=== PATIENT | female | born 1965 | race Caucasian/White ===

== ENCOUNTER 2020-05-03 12:49 | Outpatient (CLI) | payer MEDICARE, MEDICAID, SELFPAY ==
[2020-05-03 13:04] LABS: Basophils Percent Auto 0.9 % (0.0-1.0); Eosinophils Absolute Auto 0.26 K/mm3 (0.02-0.50); Eosinophils Percent Auto 2.3 % (1.0-6.0); Hematocrit 54.3 % (35.0-49.0); Hemoglobin 17.8 g/dL (12.0-15.0); Immature Granulocyte Absolute 0.04 K/mm3 (0.00-0.00); Immature Granulocyte Percent A 0.4 % (0.0-0.0); Lymphocytes Absolute Auto 3.11 K/mm3 (1.10-4.50); Mean Corpuscular HGB Conc 32.8 g/dL (32.0-36.0); Mean Corpuscular Hemoglobin 30.5 pg (27.0-31.0); Mean Corpuscular Volume 93.1 fL (78.0-102.0); Mean Platelet Volume 9.7 fl (9.2-11.8); Monocytes Absolute Auto 0.53 K/mm3 (0.10-0.90); Monocytes Percent Auto 4.8 % (2.0-11.0); Neutrophils Absolute Auto 7.1 K/mm3 (1.7-7.2); Neutrophils Percent Auto 63.6 % (50.0-70.0); Platelet Count Result 324 K/mm3 (150-420); Red Blood Count 5.83 M/mm3 (4.20-5.40); Red Cell Distribution Width 13.9 % (11.6-14.4); White Blood Count 11.1 K/mm3 (4.8-10.8)
[2020-05-03 13:17] LABS: Hemoglobin A1C 7.5 % (<5.7)
[2020-05-03 13:49] LABS: Alanine Aminotransferase 18 U/L (14-59); Albumin Level 3.8 g/dL (3.4-5.0); Alkaline Phosphatase 94 U/L (46-116); Aspartate Amino Transferase 15 U/L (15-37); Bilirubin,Total 0.5 mg/dL (0.00-1.00); Blood Urea Nitrogen 12 mg/dL (7-18); Calcium 9.3 mg/dL (8.5-10.1); Carbon Dioxide 33 mmol/L (21-32); Chloride 102 mmol/L (98-108); Cholesterol 166 mg/dL (0-200); Estimated Glomerular Filt Rate > 60; Glucose 174 mg/dL (70-99); HDL Direct 43 mg/dL (40-60); LDL Cholesterol Calculated 97 mg/dL (<130); Osmolality Calculated 295 mOsm/kg (285-295); Sodium 141 mmol/L (136-145); Thyroid Stimulating Hormone 15.01 uIU/mL (0.36-3.74); Total Protein 7.2 g/dL (6.4-8.2); Triglycerides 130 mg/dL (0-150)
== END 2020-05-03 12:50 | disposition home or self-care (01) ==
PROVIDERS: PCP Nurse Practitioner Family; Visit Provider Nurse Practitioner Family
DX: E78.5 Hyperlipidemia, unspecified (principal); I10 Essential (primary) hypertension; E11.9 Type 2 diabetes mellitus without complications; E03.9 Hypothyroidism, unspecified
CPT/HCPCS: 36415; 80053; 80061; 82043; 83036; 84443; 85025

== ENCOUNTER 2020-06-26 10:33 | Emergency (ER) | payer MEDICARE, MEDICAID, SELFPAY ==
--- NOTE | ~2020-06-26 | XR_ITS ---
EXAMINATION: XR ribs LT 2V DATE: 06/26/2020 11:30 INDICATION: Left rib pain. TECHNIQUE: 3 views of the left ribs were obtained. COMPARISON: None. FINDINGS: There is no left-sided pneumonia, pleural effusion, or pneumothorax. The heart size is norm al. There is a fracture of the left eighth rib. IMPRESSION: 1. Acute fracture of left eighth rib. Reviewed, dictated and finalized at location B.
[2020-06-26] MEDS: KETOROLAC (*BKC) 60 MG/2 ML VIAL IM (11:13)
[2020-06-26 11:15] VITALS: BP 118/69; PULSE 92; RESP 24; TEMP 37; O2SAT 92
--- NOTE | 2020-06-26 11:40 | ED.FALL ---
HPI - Fall General Chief Complaint: Fall Stated Complaint: Fell twice hurt ribs Source: patient Mode of arrival: ambulatory Limitations: no limitations History of Present Illness HPI Narrative: this is a 54-year-old female who presents with some left-sided rib pain after a fall that occurred this past Friday, currently has pain elicited with deep inspiration and with palpation, there is some mild bruising and point tenderness. Currently there is no chest pain no back pain no nausea vomiting no abdominal pain. Patient has a history of COPD is currently not short of breath no cough no fever. Patient has tried [id number] aspirin and Aleve with minimal relief. complaint: fall Onset (ago): day(s) Fall from: standing Fall witnessed: no Place fall occurred: home Loss of consciousness: none Prolonged down time: no Symptoms prior to fall: none Context: tripped/slipped Location of injury: other ( Left chest area) Related Data Home Medications Medication Instructions Recorded Confirmed allopurinol 100 mg tablet 100 mg PO DAILY 03/20/20 06/26/20 ergocalciferol (vitamin D2) 1,250 1,250 mcg PO WEEKLY 03/20/20 06/26/20 mcg (50,000 unit) capsule insulin glargine 100 unit/mL (3 75 unit SUB-Q DAILY ml 03/20/20 06/26/20 mL) subcutaneous pen liraglutide 0.6 mg/0.1 mL (18 mg/3 0.6 mg SUB-Q DAILY 03/20/20 06/26/20 mL) subcutaneous pen injector meloxicam 15 mg tablet 15 mg PO DAILY 03/20/20 06/26/20 metformin 1,000 mg tablet 1,000 mg PO BID 03/20/20 06/26/20 potassium chloride 10 mEq 10 meq PO DAILY 03/20/20 06/26/20 capsule,extended release insulin aspart U-100 100 unit/mL 5 unit SUB-Q TID 05/17/20 06/26/20 (3 mL) subcutaneous pen Allergies Allergy/AdvReac Type Severity Reaction Status Date / Time No Known Allergies Allergy Verified 05/26/20 09:21 Review of Systems Review of Systems: All systems reviewed & are unremarkable except as noted in HPI and below PMFSH Past Medical History Medical History BMI 33.0-33.9,adult COPD (chronic obstructive pulmonary disease) Depression HTN (hypertension) Hyperlipidemia Hypothyroidism Low back pain Nicotine dependence, cigarettes, uncomplicated Type 2 diabetes mellitus Surgical History Surgical History Hx of thyroidectomy 2002 Hx of tonsillectomy Age 16 Family History Family History Father Diabetes mellitus Heart disease Social History Social History Smoking packs per day: 0.5 Smoking cigarettes per day: 10.0 Years smoked: 40 Smoking pack-years: 20.00 Smoking status: Current every day smoker Alcohol intake: current Substance use: never Substance use type: does not use Exam Const: General: no acute distress and alert Orientation/consciousness: patient oriented x3 HENMT: Head: normal to inspection Eyes: Conjunctivae: conjunctivae normal EOM: EOMs intact bilaterally Neck: Neck: normal visual inspection, no lymphadenopathy and no meningeal signs Chest: Chest palpation & inspection: tenderness Other: Left rib area Cardio: Rate: regular rate Rhythm: regular rhythm GI: Auscultation: normal bowel sounds : General: Yes no CVA tenderness Back/Spine/Pelvis: Back: no CVA tenderness Skin: General skin exam: normal color Rashes: no rashes Extrem: General: normal to inspection Psych: Mental Status: mental status grossly normal Affect: normal affect Course Course Emergency Course: patient received IM Toradol with her moderate relief for pain, advised patient to take deep inspirations and follow-up with primary care physician and take medicine that was prescribed as needed for pain. Vital Signs Vital signs: Vital Signs Temperature 37.0 C 06/26/20 11:15 Pulse Rate 92 06/26/20 11:15 Resp
[2020-06-26 11:54] VITALS: BP 119/68; PULSE 67; RESP 22; O2SAT 94
== END 2020-06-26 11:54 | disposition home or self-care (01) ==
PROVIDERS: Emergency Provider Emergency Medicine; PCP Nurse Practitioner Family
DX: S22.32XA Fracture of one rib, left side, initial encounter for closed fracture (principal); W19.XXXA Unspecified fall, initial encounter; J44.9 Chronic obstructive pulmonary disease, unspecified; I10 Essential (primary) hypertension; E78.5 Hyperlipidemia, unspecified; E03.9 Hypothyroidism, unspecified; F17.200 Nicotine dependence, unspecified, uncomplicated
CPT/HCPCS: 71100; 96372; 99282; 99283; J1885

== ENCOUNTER 2020-08-12 10:58 | Outpatient (CLI) | payer MEDICARE, MEDICAID, SELFPAY ==
--- NOTE | ~2020-08-12 | MR_ITS ---
EXAMINATION: MR lumbar spine wo con EXAM DATE: 08/12/2020 11:47 INDICATION: Low back pain. TECHNIQUE: Multi-sequential, multiplanar MR images of the lumbar spine were obtained without contrast . Sagittal T1, T2, T2 fat saturation images. Axial T2 weighted images. There is no prior study for comparison. FINDINGS: Large left renal lesion, imaged portion consistent with simple cyst measuring 9 cm. There i s 3 mm anterolisthesis L4 on L5 without spondylolysis, mild disc disease at this level. Mild to moder ate disc disease at L3-4 and moderate at L5-S1 with 3 mm retrolisthesis. The conus medullaris termina pamella at the T12-L1 level and has normal signal intensity and morphology. There are no suspicious griselda ow signal abnormalities. Paraspinal soft tissue is unremarkable. Level by level evaluation: T12-L1: Disc does not extend beyond the endplate margin. Facet arthropathy: Mild. Neural foraminal stenosis: No stenosis. Central canal stenosis: No stenosis. L1-L2: Disc does not extend beyond the endplate margin. Facet arthropathy: Mild. Neural foraminal stenosis: No stenosis. Central canal stenosis: No stenosis. L2-L3: Disc does not extend beyond the endplate margin. Facet arthropathy: Mild to moderate. Neural foraminal stenosis: No stenosis. Central canal stenosis: No stenosis. L3-L4: There is a mild to moderate diffuse disc bulge. Facet arthropathy: Moderate . Ligamentum flavum enlargement. Neural foraminal stenosis: Moderate right, mild left. Central canal stenosis: Moderate. L4-L5: There is a mild to moderate diffuse disc bulge. Facet arthropathy: Severe . Ligamentum flavum enlargement. Neural foraminal stenosis: Mild to moderate bilateral. Central canal stenosis: Moderate. L5-S1: There is a mild to moderate diffuse disc bulge. Facet arthropathy: Mild to moderate. Neural foraminal stenosis: Moderate left, mild right. Central canal stenosis: Mild. IMPRESSION: 1. Moderate central canal stenosis L3-4 and L4-5. 2. Grade 1 anterolisthesis L4 on L5 and grade 1 retrolisthesis L5 on S1. Reviewed, dictated and finalized at location A.
== END 2020-08-12 10:59 | disposition home or self-care (01) ==
LOC: CHSIMG 10:59
PROVIDERS: PCP Nurse Practitioner Family; Visit Provider Nurse Practitioner Adult Health
DX: M54.17 Radiculopathy, lumbosacral region (principal)
CPT/HCPCS: 72148

== ENCOUNTER 2020-08-17 13:40 | Outpatient (CLI) | payer MEDICARE, SELFPAY ==
[2020-08-17 13:55] LABS: Basophils Absolute Auto 0.09 K/mm3 (0.00-0.10); Basophils Percent Auto 0.7 % (0.0-1.0); Eosinophils Absolute Auto 0.27 K/mm3 (0.02-0.50); Hematocrit 50.4 % (35.0-49.0); Hemoglobin 16.7 g/dL (12.0-15.0); Immature Granulocyte Absolute 0.05 K/mm3 (0.00-0.00); Immature Granulocyte Percent A 0.4 % (0.0-0.0); Mean Corpuscular HGB Conc 33.1 g/dL (32.0-36.0); Mean Corpuscular Hemoglobin 31.3 pg (27.0-31.0); Mean Corpuscular Volume 94.6 fL (78.0-102.0); Mean Platelet Volume 9.7 fl (9.2-11.8); Monocytes Percent Auto 5.3 % (2.0-11.0); Neutrophils Absolute Auto 7.4 K/mm3 (1.7-7.2); Neutrophils Percent Auto 55.6 % (50.0-70.0); Platelet Count Result 306 K/mm3 (150-420); Red Blood Count 5.33 M/mm3 (4.20-5.40); Red Cell Distribution Width 13.8 % (11.6-14.4); White Blood Count 13.3 K/mm3 (4.8-10.8)
[2020-08-17 14:08] LABS: Hemoglobin A1C 8.2 % (<5.7)
[2020-08-17 14:39] LABS: Alanine Aminotransferase 27 U/L (14-59); Albumin Level 4.4 g/dL (3.4-5.0); Alkaline Phosphatase 78 U/L (46-116); Anion Gap 10 mmol/L (8-16); Aspartate Amino Transferase 22 U/L (15-37); Bilirubin,Total 0.5 mg/dL (0.00-1.00); Blood Urea Nitrogen 20 mg/dL (7-18); Calcium 9.7 mg/dL (8.5-10.1); Carbon Dioxide 29 mmol/L (21-32); Chloride 101 mmol/L (98-108); Estimated Glomerular Filt Rate > 60; Free T4 Free Thyroxine 0.46 ng/dL (0.76-1.46); Glucose 73 mg/dL (70-99); Osmolality Calculated 291 mOsm/kg (285-295); Potassium 4.3 mmol/L (3.5-5.1); Sodium 140 mmol/L (136-145); Thyroid Stimulating Hormone 26.78 uIU/mL (0.36-3.74); Total Protein 8.3 g/dL (6.4-8.2)
[2020-08-20 06:03] LABS: T4 Thyroxine 3.3 mcg/dL (5.1-11.9)
[2020-08-21 07:33] LABS: Total Triiodothyronine (T3) 32.8 ng/dL (76-181)
[2020-08-22 09:56] LABS: T3 Reverse <5 ng/dL (8-25)
== END 2020-08-17 13:41 | disposition home or self-care (01) ==
LOC: CHSLAB 13:45
PROVIDERS: PCP Nurse Practitioner Family; Visit Provider Nurse Practitioner Family
DX: E11.9 Type 2 diabetes mellitus without complications (principal); I10 Essential (primary) hypertension; E03.9 Hypothyroidism, unspecified; R79.89 Other specified abnormal findings of blood chemistry
CPT/HCPCS: 36415; 80053; 83036; 84436; 84439; 84443; 84480; 84482; 85025

== ENCOUNTER 2020-08-18 15:57 | Outpatient (CLI) | payer MEDICARE, SELFPAY ==
[2020-08-18 16:18] LABS: Creatinine Urine 156.57 mg/dL (40-278); MALB Creatinine Ratio 8.3 mg/g (0-30); Microalbumin Urine Random < 13.0 mg/L
== END 2020-08-18 15:58 | disposition home or self-care (01) ==
LOC: CHSLAB 16:02
PROVIDERS: PCP Nurse Practitioner Family; Visit Provider Nurse Practitioner Family
DX: E11.9 Type 2 diabetes mellitus without complications (principal)
CPT/HCPCS: 82043

== ENCOUNTER 2020-08-21 15:39 | Outpatient (CLI) | payer MEDICARE, SELFPAY ==
[2020-08-22 13:49] LABS: SARS-CoV-2 RNA PCR Negative
== END 2020-08-21 15:40 | disposition home or self-care (01) ==
LOC: CHSLAB 15:41
PROVIDERS: PCP Nurse Practitioner Family; Visit Provider Nurse Practitioner Family
DX: Z20.828 Contact with and (suspected) exposure to other viral communicable diseases (principal)
CPT/HCPCS: 87635; C9803; U0003

== ENCOUNTER 2020-09-04 14:57 | Outpatient (CLI) | payer MEDICARE, SELFPAY ==
[2020-09-04 22:56] LABS: SARS-CoV-2 RNA PCR Positive
== END 2020-09-04 14:58 | disposition home or self-care (01) ==
PROVIDERS: PCP Nurse Practitioner Family
DX: U07.1 COVID-19 (principal)
CPT/HCPCS: 87635; C9803; U0003

== ENCOUNTER 2020-09-27 12:40 | Outpatient (CLI) | payer MEDICARE, MEDICAID, SELFPAY ==
--- NOTE | ~2020-09-27 | US_ITS ---
EXAMINATION: US venous doppler LE RT EXAM DATE: 09/27/2020 13:05 INDICATION: M79.604 - Pain in right leg TECHNIQUE: Multiple grayscale, color flow and Doppler images of the right lower extremity deep venous system were obtained and reviewed. There is no prior study for comparison. FINDINGS: The right common femoral, femoral and profunda veins demonstrate normal color flow, respira tory variation, augmentation and compressibility. Compressibility, color flow confirmed within the r ight popliteal, posterior tibial, peroneal, and greater saphenous veins. IMPRESSION: 1. No right lower extremity deep venous thrombosis. Reviewed, dictated and finalized at location A. GED CARE SPECIALIST
== END 2020-09-27 12:41 | disposition home or self-care (01) ==
LOC: CHSIMG 12:42
PROVIDERS: PCP Nurse Practitioner Family; Visit Provider Family Medicine
DX: M79.604 Pain in right leg (principal)
CPT/HCPCS: 93971

== ENCOUNTER 2021-02-26 21:10 | Emergency (ER) | payer MEDICARE, MEDICAID, SELFPAY ==
--- NOTE | ~2021-02-26 | CT_ITS ---
EXAMINATION: CT abdomen pelvis w con EXAM DATE: 02/27/2021 00:03 INDICATION: Nausea and vomiting. TECHNIQUE: Spiral CT of the abdomen and pelvis was performed following intravenous injection of 100 m L Omnipaque 350. Axial, coronal and sagittal images of the abdomen and pelvis were reviewed. Please note that the contrast infiltrated during the examination. The dose-length product (DLP) for this exa mination was 1541.93 mGy-cm. The exposure was tailored according to patient size (auto mA exposure c ontrol), and iterative reconstruction (ASIR) was used as additional dose reduction technique. There is no prior study for comparison. FINDINGS: There is a 2.8 cm right adrenal gland adenoma. Liver, spleen, pancreas, left adrenal gland are unremarkable. Mild hepatic steatosis. The spleen, adrenal glands and pancreas are unremarkable. There are cholecystectomy clips. There is no nephrolithiasis or hydronephrosis. There is an 9 cm lef t renal cyst. There is a 1.2 cm exophytic lesion which could be a hemorrhagic cyst but solid neoplasm not excludable; consider follow-up ultrasound. The uterus is unremarkable. The bladder is unremar kable. There is no retroperitoneal or pelvic lymphadenopathy. There is mild scattered arterioscler otic disease. There is a 5 cm umbilical fat-containing hernia. The appendix is normal. There is a 2 cm duodenal diverticulum. There is expected amount of colonic stool. No free intraperitoneal gas. Small pericardial effusion. Right basilar subsegmental atele ctasis. There are no osteoblastic or osteolytic lesions identified. There is advanced lower lumbar f acet arthropathy. IMPRESSION: 1. No acute intra-abdominal findings. 2. Small right renal indeterminate lesion, hemorrhagic cyst or possibly solid neoplasm; consider fol low-up ultrasound. 3. Other incidental findings as above. Reviewed, dictated and finalized at location A. IMPRESSION: 1. No acute intra-abdominal findings. 2. Small right renal indeterminate lesion, hemorrhagic cyst or possibly solid neoplasm; consider follow-up ultrasound. 3. Other incidental findings as above.
--- NOTE | ~2021-02-26 | XR_ITS ---
XR abdomen/kub 1V DATE: 02/26/2021 23:06 INDICATION: Nausea, emesis TECHNIQUE: Portable AP views of the abdomen COMPARISON: 06/26/2020 left ribs FINDINGS: This is a limited study due to portable technique and considerable patient rotation. There is a prominent amount of fecal material within the colon. No apparent bowel obstruction is dete cted. Surgical clip overlying right upper quadrant, likely due to cholecystectomy. An approximately 5 mm rounded calcification overlies the right lower quadrant of the abdomen; a calci fied appendicolith (and by extension appendicitis) is not excluded. The lung bases appear clear. No pleural effusions are noted. IMPRESSION: Cannot exclude calcified appendicolith, right lower quadrant Status post cholecystectomy Prominent amount fecal material in the colon; no apparent bowel obstruction Reviewed, dictated and finalized at Location A. Reviewed, dictated and finalized at location A.
[2021-02-26 21:23] VITALS: BP 178/88; PULSE 90; RESP 22; TEMP 37; O2SAT 95
--- NOTE | 2021-02-26 21:25 | ED.NAVMDI ---
HPI - Nausea/Vomiting/Diarrhea General Chief complaint: Nausea/Vomiting/Diarrhea Stated complaint: amb Time Seen by Provider: 02/26/21 21:26 Source: patient and EMS Mode of arrival: EMS History of Present Illness HPI Narrative: Patient is brought in by EMS. She gives no history. She refuses to cooperate with this physician, but has reportedly thrown up at least a few times at home. She denies any abdominal pain. She got mad at the medics and reportedly threw vomit on them. Her behavior here, since her arrival has not been helpful. Further history cannot be obtained as she will not cooperate. MD elicited complaint: nausea and vomiting Onset (ago): hour(s) Location of pain: none Related Data Home Medications Medication Instructions Recorded Confirmed allopurinol 100 mg tablet 100 mg PO DAILY 03/20/20 02/26/21 ergocalciferol (vitamin D2) 1,250 1,250 mcg PO WEEKLY 03/20/20 02/26/21 mcg (50,000 unit) capsule meloxicam 15 mg tablet 15 mg PO DAILY 03/20/20 02/26/21 potassium chloride 10 mEq 10 meq PO DAILY 03/20/20 02/26/21 capsule,extended release insulin aspart U-100 100 unit/mL 5 unit SUB-Q TID 05/17/20 02/26/21 (3 mL) subcutaneous pen Allergies Allergy/AdvReac Type Severity Reaction Status Date / Time No Known Allergies Allergy Verified 02/05/21 08:01 Review of Systems Review of Systems: ROS unobtainable: Yes unobtainable due to medical condition PMFSH Past Medical History Medical History (Updated 02/27/21 @ 01:10 by Cem Garzon MD) BMI 33.0-33.9,adult COPD (chronic obstructive pulmonary disease) Depression HTN (hypertension) Hyperlipidemia Hypothyroidism Low back pain Nicotine dependence, cigarettes, uncomplicated Type 2 diabetes mellitus Surgical History Surgical History Hx of thyroidectomy 2002 Hx of tonsillectomy Age 16 Family History Family History Father Diabetes mellitus Heart disease Social History Social History Smoking packs per day: 0.5 Smoking cigarettes per day: 10.0 Years smoked: 40 Smoking pack-years: 20.00 Smoking status: Current every day smoker Alcohol intake: current Substance use: never Substance use type: does not use Gender identity (if verbalized by the patient): Female Exam Const: General: no acute distress Orientation/consciousness: patient oriented x3 HENMT: Head: normal to inspection General nose exam: Normal external nose present Face and sinus: normal facial exam Mouth: Yes Normal oral and palatal mucosa present Eyes: Conjunctivae: conjunctivae normal Neck: Neck: normal visual inspection Chest: Chest palpation & inspection: normal inspection of the chest Resp: Effort & Inspection: normal respiratory effort Auscultation: clear to auscultation bilaterally Cardio: Rate: regular rate Rhythm: regular rhythm GI: GI Palp: Yes Soft to palpation (nontender) Auscultation: normal bowel sounds Skin: General skin exam: normal color Neuro: General: patient oriented x3 and moves all extremities Extrem: General: normal to inspection Psych: Appearance: grossly normal Mental Status: mental status grossly normal Thought content: Yes Normal thought content present Course Course Emergency Course: Labs, and a cat scan of the abdomen and pelvis were done and reviewed. After she was given Zofran IV, she improved significantly. She continued to be combative with staff, even after she appeared to feel better. She was then given Ativan 2mg IV, which seemed to fully resolve the nausea, but also put her to sleep. After she woke, she seemed to be much improved, with no further nausea, and acceptable behavior. Vital Signs Vital signs: Vital Signs Temperature 37.0 C 02/26/21 21:23 Pulse Rate 90 02/26/21 21:23 Respiratory Rate 22 H 02/26/21 21:23 Blood Pressure 178/88 H
[2021-02-26] MEDS: ONDANSETRON INJ 4 MG/2 ML VIAL IV PUSH (21:34)
[2021-02-26] MEDS: LORazepam INJ (*CRX) 2 MG/ML VIAL IV PUSH (21:42)
--- NOTE | 2021-02-26 21:42 | PC.NURSE ---
patient combative trying to pinch staff, cussing staff, spitting at staff. Ativan ordered
[2021-02-26 22:21] VITALS: BP 150/88; PULSE 88; RESP 18
[2021-02-26 22:59] LABS: Basophils Absolute Auto 0.05 K/mm3 (0.00-0.10); Basophils Percent Auto 0.5 % (0.0-1.0); Eosinophils Absolute Auto 0.07 K/mm3 (0.02-0.50); Eosinophils Percent Auto 0.7 % (1.0-6.0); Hematocrit 46.3 % (35.0-49.0); Immature Granulocyte Absolute 0.07 K/mm3 (0.00-0.00); Immature Granulocyte Percent A 0.7 % (0.0-0.0); Lymphocytes Absolute Auto 1.46 K/mm3 (1.10-4.50); Lymphocytes Percent Auto 14.3 % (18.0-42.0); Mean Corpuscular HGB Conc 32.4 g/dL (32.0-36.0); Mean Corpuscular Hemoglobin 30.4 pg (27.0-31.0); Mean Corpuscular Volume 93.9 fL (78.0-102.0); Mean Platelet Volume 10.3 fl (9.2-11.8); Monocytes Percent Auto 2.9 % (2.0-11.0); Neutrophils Absolute Auto 8.2 K/mm3 (1.7-7.2); Neutrophils Percent Auto 80.9 % (50.0-70.0); Platelet Count Result 287 K/mm3 (150-420); Red Blood Count 4.93 M/mm3 (4.20-5.40); White Blood Count 10.2 K/mm3 (4.8-10.8)
[2021-02-26 23:03] VITALS: BP 120/80; PULSE 88; RESP 18; O2SAT 94
[2021-02-26 23:14] LABS: Alanine Aminotransferase 22 U/L (14-59); Albumin Level 4.2 g/dL (3.4-5.0); Alkaline Phosphatase 77 U/L (46-116); Anion Gap 9 mmol/L (8-16); Aspartate Amino Transferase 16 U/L (15-37); Bilirubin,Total 0.4 mg/dL (0.00-1.00); Blood Urea Nitrogen 14 mg/dL (7-18); Calcium 9.4 mg/dL (8.5-10.1); Carbon Dioxide 29 mmol/L (21-32); Chloride 101 mmol/L (98-108); Estimated CRCL calculation 70 ml/min; Estimated Glomerular Filt Rate > 60; Glucose 351 mg/dL (70-99); Lipase 71 U/L (73-393); Osmolality Calculated 302 mOsm/kg (285-295); Potassium 3.2 mmol/L (3.5-5.1); Sodium 139 mmol/L (136-145); Total Protein 8.1 g/dL (6.4-8.2)
[2021-02-26 23:20] LABS: Lactic Acid Reflex 1.6 mmol/L (0.4-2.0)
--- NOTE | 2021-02-26 23:32 | PC.NURSE ---
son called up dated on condition, asked to call back she is stable
--- NOTE | 2021-02-27 00:29 | PC.NURSE ---
2330 pt sleeping,0001 pt requested bedpan. 0015 pt sleeping,
[2021-02-27 00:46] LABS: Add Urine Microscopic? YES; Appearance Urine Clear (Clear); Bilirubin Urine Negative (Negative); Blood Urine Negative (Negative); Color Urine Yellow (Yellow); Glucose Urine UA 3+ (Negative); Ketones Urine 1+ (Negative); Leukocyte Esterase Ur Negative (Negative); Nitrate Urine Negative (Negative); Protein Urine Negative (Negative); Specific Grav Ur 1.025 (1.010-1.020); Urobilinogen Urine 0.2 mg/dL (0.2-1.0)
[2021-02-27 00:53] LABS: Bacteria Urine Trace /hpf; RBC Urine 0-2 /hpf (0-2); Squamous Epithelial Cell Urine None seen /hpf (Few); WBC Urine 0-3 /hpf (0-3)
[2021-02-27 00:55] VITALS: BP 118/75; PULSE 78; RESP 20; TEMP 36.7; O2SAT 94
[2021-02-27 01:17] LABS: Amphetamine Screen Urine Positive (Negative); Barbiturate Screen Urine Negative (Negative); Benzodiazepines Screen Urine Negative (Negative); Cannabinoid Screen Urine Negative (Negative); Cocaine Screen Urine Negative (Negative); Methadone Screen Urine Negative (Negative); Opiate Screen Urine Negative (Negative); Phencyclidine Screen Urine Negative (Negative)
--- NOTE | 2021-02-27 01:20 | PC.NURSE ---
pt sleeping, left undisturbed.
[2021-02-27 02:12] VITALS: BP 150/94; PULSE 84; RESP 20; TEMP 36.4; O2SAT 94
[2021-02-27] MEDS: POTASSIUM BICARBONATE 25 MEQ TABEF 50 MEQ PO (02:15)
--- NOTE | 2021-02-27 02:48 | PC.NURSE ---
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 pt sleeping. left undisturbed.
--- NOTE | 2021-02-27 05:59 | PC.NURSE ---
0600 pt sleeping, repositions self in cot. no complaints or concerns voiced.
--- NOTE | 2021-02-27 06:49 | PC.NURSE ---
pt sleeping, reapplied warm towel to left hand/forearm. propped up on pillow. digits swollen. report to JEFF Koroma
--- NOTE | 2021-02-27 07:16 | PC.NURSE ---
PT CARE IS ASSUMED - PER PREVIOUS STAFF, PT IS DISCHARGED BUT SLEEPING WHILE WAITING FOR A RIDE
--- NOTE | 2021-02-27 08:20 | PC.NURSE ---
PT IS HELPED UP TO BATHROOM FOR TOILETING AND CHANGE OF CLOTHES. PT IS THEN TAKEN TO THE [address] WHERE SHE IS PICKED UP BY KENRICK JACKSON. NO VOMITING AT TIME OF DISCHARGE, PT IS REMINDED TO GET RX FILLED. PT UNHAPPY ABOUT SWELLING TO LEFT HAND AFTER IV INFILTRATE, PT OFFERED REASSURANCE.
== END 2021-02-27 08:25 | disposition home or self-care (01) ==
PROVIDERS: Emergency Provider Emergency Medicine; PCP Nurse Practitioner Family
DX: R11.2 Nausea with vomiting, unspecified (principal); Z79.899 Other long term (current) drug therapy; J44.9 Chronic obstructive pulmonary disease, unspecified; I10 Essential (primary) hypertension; E78.5 Hyperlipidemia, unspecified; E03.9 Hypothyroidism, unspecified; E11.9 Type 2 diabetes mellitus without complications; F17.200 Nicotine dependence, unspecified, uncomplicated
CPT/HCPCS: 36415; 74018; 74177; 80053; 80307; 81001; 83605; 83690; 85025; 96374; 96375; 99283; 99284; A9270; J2060; J2405; Q9967

== ENCOUNTER 2021-03-26 12:29 | Outpatient (CLI) | payer MEDICARE, MEDICAID, SELFPAY ==
--- NOTE | ~2021-03-26 | XR_ITS ---
EXAMINATION: XR_CERV2-3V_CR EXAM DATE: 03/26/2021 12:58 INDICATION: Posterior neck pain traveling up head for one week. No known recent injury. TECHNIQUE: Cervical spine frontal, lateral, lateral swimmers, and open-mouth odontoid projections. There is no prior study for comparison. FINDINGS: The vertebral bodies are aligned in the AP dimension. Vertebral body and disc heights are well-maintained. There is moderate to severe cervical facet arthropathy and probably overall mild to moderate uncovertebral joint arthropathy. There is mild cervical levoscoliosis. Lung apices are clear . Neck surgical clips which could be from thyroidectomy. IMPRESSION: 1. Advanced cervical facet arthropathy. 2. Mild levoscoliosis. Reviewed, dictated and finalized at location A.
== END 2021-03-26 12:30 | disposition home or self-care (01) ==
LOC: CHSIMG 12:32
PROVIDERS: PCP Nurse Practitioner Family; Visit Provider Nurse Practitioner Family
DX: M54.2 Cervicalgia (principal)
CPT/HCPCS: 72040

== ENCOUNTER 2021-04-10 14:11 | Outpatient (RCR) | payer MEDICARE, MEDICAID, SELFPAY ==
--- NOTE | 2021-04-10 15:09 | PTOPEVAL ---
Thank you for referring Emilee Duron to [facility].? The patient is scheduled to be seen for therapy? ____x/week for ___ weeks. Please review, sign, date and return this plan of care BILL. I agree with and certify that the following plan of care is medically necessary. Referring Physician Date Admitting Provider: Attending Provider: Ghazala Ace NP Referring Provider: *PT Outpatient Evaluation Start: 04/10/21 14:27 Freq: Status: Active Protocol: Document 04/10/21 14:25 [facility] (Rec: 04/10/21 14:58 [id number]) Therapy Assessment Status Assessment Status Assessment Status Evaluation Outpatient Past Medical History Past Medical History Other Source of Past Medical History see patient intake form Neurological History Hx Other Neurological Disorders Yes: cerebral palsy Respiratory History Hx Chronic Obstructive Pulmonary Disease Yes (COPD) Hx Emphysema Yes Gastrointestinal History Hx Cholecystectomy Yes Endocrine History Hx Diabetes Yes Hx Thyroidectomy Yes Evaluation Information Problem Diagnosis cervical spondylosis Onset 03/30/21 Additional Evaluation Detail ndi = 58% functional deficits Subjective Information patient reports she has had Query Text:As Reported By Patient/ pain in the neck for about 2 Family weeks that has been severe, but has had off and on pain in the neck for 5 years or more. she reports she is on disability. she reports a lot of falls in the past year or 2 . she reports her R side is affected by CP. she reports deficits in stability of the R LE. she reports per the neck, she has pain in the middle of the back that radiates up the spine. she reports she does get headaches. she reports she is not falling much lately. she reports she has increased pain in the neck with turning and looking behind her to the L side. she reports she has no radicualr symptoms in the UE' s. she reports her sleeping habits are affected due to pain. Prior Level of Function Comments Additional Prior Level of Function patient is on disability. she Comments
== END 2021-04-19 23:59 | disposition home or self-care (01) ==
LOC: CHSPT 14:11
PROVIDERS: PCP Nurse Practitioner Family; Visit Provider Nurse Practitioner Family
DX: M47.812 Spondylosis without myelopathy or radiculopathy, cervical region (principal)
CPT/HCPCS: 97014; 97110; 97140; 97161; G0283

== ENCOUNTER 2021-10-23 11:53 | Emergency (ER) | payer MEDICARE, MEDICAID, SELFPAY ==
--- NOTE | ~2021-10-23 | XR_ITS ---
EXAMINATION: XR chest 1V portable DATE: 10/23/2021 13:10 INDICATION: Shortness of breath and cough. TECHNIQUE: A single frontal view of the chest was obtained. COMPARISON: CT abdomen and pelvis 02/26/2021 FINDINGS: The chest demonstrates clear lungs without pneumonia, pleural effusion, or pneumothorax. Th e heart size is normal. IMPRESSION: 1. No acute cardiopulmonary disease. Reviewed, dictated and finalized at location A. ING MACHINE OPERATOR FRICTION
--- NOTE | ~2021-10-23 | CT_ITS ---
EXAMINATION: CTA chest PE protocol DATE: 10/23/2021 14:58 INDICATION: Shortness of breath. Cough. TECHNIQUE: Computed tomography angiography (CTA) of the chest was performed with 100 mL Omnipaque-350 intravenous contrast timed to evaluate the pulmonary arteries. Coronal maximum intensity projection 3D-reconstructions were created by the technologist. Automated exposure control and iterative reconst ruction technique were employed. The dose-length product was 752.24 mGy-cm. COMPARISON: CT abdomen and pelvis 02/26/2021 FINDINGS: The lungs demonstrate mild atelectasis. No pleural effusion. The heart size is normal. Ther e are coronary artery calcifications. There is a small pericardial effusion. There is no pulmonary em bolus. There is mild right hilar and mediastinal lymphadenopathy, likely reactive. Partially visualiz ed is a 3.1 cm mass in right adrenal gland, stable from 02/26/2021, consistent with an adenoma. There is diffuse hepatic steatosis. There is mild thoracic spondylosis. IMPRESSION: 1. No pulmonary embolus. 2. Small pericardial effusion. 3. Mild right hilar and mediastinal lymphadenopathy, likely reactive. Reviewed, dictated and finalized at location A. NSIC ACCOUNTANT
[2021-10-23 11:55] VITALS: BP 100/79; PULSE 75; RESP 18; TEMP 36.4; O2SAT 94
--- NOTE | 2021-10-23 12:12 | ED.SOB ---
HPI - SOB/Dyspnea General Chief Complaint: Shortness of Breath/Dyspnea Stated Complaint: ambulance Time Seen by Provider: 10/23/21 12:13 Source: patient Mode of arrival: ambulatory Limitations: no limitations History of Present Illness HPI Narrative: 55-year-old female, smoker with cerebral palsy, hypertension, diabetes mellitus, dyslipidemia, COPD/emphysema, depression, thyroidectomy with hypothyroidism, gout, chronic low back pain presents to the ER with -- worsening shortness of breath for past few days. -- cough with mucoid sputum. No chest pain. No fever. no recent illness/ upper respiratory tract symptoms. MD elicited complaint: shortness of breath and cough Pertinent past history: COPD Onset (ago): day(s) ( 3 days) Context: anxiety Exacerbating factors: nothing Relieving factors: nothing Known history of: COPD Associated symptoms: denies other symptoms Related Data Home Medications Medication Instructions Recorded Confirmed allopurinol 100 mg tablet 100 mg PO DAILY 03/20/20 02/26/21 ergocalciferol (vitamin D2) 1,250 1,250 mcg PO WEEKLY 03/20/20 02/26/21 mcg (50,000 unit) capsule potassium chloride 10 mEq 10 meq PO DAILY 03/20/20 02/26/21 capsule,extended release insulin aspart U-100 100 unit/mL 5 unit SUB-Q TID 05/17/20 02/26/21 (3 mL) subcutaneous pen levothyroxine 200 mcg tablet 200 mcg PO DAILY tablet 03/26/21 Allergies Allergy/AdvReac Type Severity Reaction Status Date / Time No Known Allergies Allergy Verified 10/23/21 12:06 Review of Systems Review of Systems: All systems reviewed & are unremarkable except as noted in HPI and below Constitutional: Constitutional: Reports as per HPI and Reports no additional constitutional complaints Eyes: Eyes: Reports as per HPI and Reports no additional eye complaints ENT: Reports system reviewed and no additional complaints, except as documented Cardiovascular: Cardiovascular: Reports as per HPI and Reports no additional cardiovascular complaints Respiratory: Respiratory: Reports as per HPI, Reports cough, Reports excessive phlegm production, Reports dyspnea and Reports dyspnea on exertion Gastrointestinal: Gastrointestinal: Reports as per HPI and Reports no additional gastrointestinal complaints Genitourinary: Genitourinary: Reports no additional female genitourinary complaints Musculoskeletal: Musculoskeletal: Reports no additional musculoskeletal complaints and Reports as per HPI Integumentary/Breasts: Skin/Breast: Reports system reviewed and no additional complaints, except as docu Neurologic: Reports system reviewed and no additional complaints, except as documented Psychiatric: Psychiatric: Reports no additional psychiatric complaints and Reports depression Endocrine: Endocrine: Reports no additional endocrine complaints Hematologic/Lymphatic: Hematologic/Lymphatic: Reports no additional hematologic/lymphatic complaints Allergic/Immunologic: Allergic/Immunologic: Reports no additional allergic/immunologic complaints [facility] Past Medical History Medical History (Updated 10/23/21 @ 15:24 by Anthony Cooper MD) BMI 33.0-33.9,adult COPD (chronic obstructive pulmonary disease) Depression HTN (hypertension) Hyperlipidemia Hypothyroidism Low back pain Nicotine dependence, cigarettes, uncomplicated Type 2 diabetes mellitus Surgical History Surgical History Hx of thyroidectomy 2002 Hx of tonsillectomy Age 16 Family History Family History Father Diabetes mellitus Heart disease Social History Social History Smoking packs per day: 0.5 Smoking cigarettes per day: 10.0 Years smoked: 40 Smoking pack-years: 20.00 Smoking status: Current every day smoker Alcohol intake: current Substance use: never Substance use type: does not use Gender teddy
--- NOTE | 2021-10-23 12:19 | ECG_ITS ---
Measurements Intervals [place] Rate: 74 P: 78 PA: 152 QRS: 62 QRSD: 94 T: 79 QT: 371 QTc: 413 Interpretive Statements SINUS RHYTHM WITH SINUS ARRHYTHMIA DELAYED PRECORDIAL R/S TRANSITION NONSPECIFIC ST & T-WAVE ABNORMALITY- HIGH LATERAL LEADS BASELINE ARTIFACT- I, II, III, AVR, AVL, AVF BORDERLINE ECG Electronically Signed On 10-23-2021 14:03:39 CRYSTAL ATTACHER by John Stiles D.O.
[2021-10-23 12:56] LABS: Basophils Absolute Auto 0.08 K/mm3 (0.00-0.10); Basophils Percent Auto 1.1 % (0.0-1.0); Eosinophils Absolute Auto 0.24 K/mm3 (0.02-0.50); Eosinophils Percent Auto 3.4 % (1.0-6.0); Hematocrit 49.2 % (35.0-49.0); Hemoglobin 15.9 g/dL (12.0-15.0); Immature Granulocyte Absolute 0.04 K/mm3 (0.00-0.00); Immature Granulocyte Percent A 0.6 % (0.0-0.0); Lymphocytes Absolute Auto 1.77 K/mm3 (1.10-4.50); Lymphocytes Percent Auto 24.9 % (18.0-42.0); Mean Corpuscular HGB Conc 32.3 g/dL (32.0-36.0); Mean Corpuscular Hemoglobin 30.1 pg (27.0-31.0); Mean Platelet Volume 9.7 fl (9.2-11.8); Monocytes Absolute Auto 0.53 K/mm3 (0.10-0.90); Monocytes Percent Auto 7.4 % (2.0-11.0); Neutrophils Absolute Auto 4.5 K/mm3 (1.7-7.2); Neutrophils Percent Auto 62.6 % (50.0-70.0); Platelet Count Result 280 K/mm3 (150-420); Red Blood Count 5.29 M/mm3 (4.20-5.40); Red Cell Distribution Width 13.5 % (11.6-14.4); White Blood Count 7.1 K/mm3 (4.8-10.8)
[2021-10-23 13:01] LABS: Base Excess ABG 6.4 mmol/L (0-2); HCO3 ABG 30.8 mmol/L (23-29); Oxygen Content ABG 20.7 %vol (16.0-22.0); Oxygen Saturation ABG 94.5 % (95-97); PCO2 ABG 42.8 mmHg (35-45); PO2 ABG 69.7 mmHg (80-90); pH ABG 7.48 (7.35-7.45)
[2021-10-23 13:02] LABS: Device ROOM AIR; Modified Allen's Test Pass; Site Drawn LEFT BRACHIAL
[2021-10-23] MEDS: methylPREDNISolone SOD SUCC 125 MG VIAL IV PUSH (13:06)
[2021-10-23] MEDS: ALBUTEROL SULFATE (*SP) INHALER 2 PUFF INHALATION (13:16)
[2021-10-23 13:17] VITALS: PULSE 78; RESP 22; O2SAT 91
[2021-10-23 13:18] LABS: Alanine Aminotransferase 20 U/L (14-59); Albumin Level 3.3 g/dL (3.4-5.0); Alkaline Phosphatase 78 U/L (46-116); Anion Gap 8 mmol/L (8-16); Aspartate Amino Transferase 14 U/L (15-37); Bilirubin,Total 0.4 mg/dL (0.00-1.00); Blood Urea Nitrogen 8 mg/dL (7-18); Calcium 8.9 mg/dL (8.5-10.1); Carbon Dioxide 35 mmol/L (21-32); Chloride 97 mmol/L (98-108); Estimated CRCL calculation 74 ml/min; Estimated Glomerular Filt Rate > 60; Glucose 225 mg/dL (70-99); NT Pro B Type Natriuretic Pept 139 pg/mL (0-125); Osmolality Calculated 295 mOsm/kg (285-295); Potassium 3.6 mmol/L (3.5-5.1); Sodium 140 mmol/L (136-145); Total Protein 7.2 g/dL (6.4-8.2)
[2021-10-23 13:19] VITALS: BP 127/78; PULSE 72; RESP 18; O2SAT 92
--- NOTE | 2021-10-23 13:22 | PC.NURSE ---
1315 ERP infromed of elevated D-dimer of 0.70
[2021-10-23 13:28] VITALS: PULSE 83; RESP 18; O2SAT 93
[2021-10-23 13:40] LABS: Lipase 94 U/L (73-393); Thyroid Stimulating Hormone 22.05 uIU/mL (0.36-3.74); Troponin I 6.7 ng/L (0.00-60.4)
[2021-10-23 13:53] LABS: SARS-CoV-2 RNA PCR Negative (Negative)
[2021-10-23] MEDS: LACTATED RINGERS 1,000 ML 500 ML IV CONT (14:12)
[2021-10-23] MEDS: AZITHROMYCIN 250 MG TABLET 500 MG PO (15:32)
[2021-10-23 15:41] VITALS: BP 129/81; PULSE 79; RESP 24; O2SAT 90
--- NOTE | 2021-10-23 15:43 | PC.NURSE ---
ERP verbal order for only 500mL of LR. RN stopped LR around 1543. Pt recieved 500mL total.
--- NOTE | 2021-10-23 15:53 | PC.NURSE ---
Pt recieving LR 500mL total per ERP verbal order. Pt recieved 500 mL and infusion stopped at 1553
== END 2021-10-23 15:58 | disposition home or self-care (01) ==
PROVIDERS: Emergency Provider Internal Medicine Critical Care Medicine; PCP Nurse Practitioner Family
DX: R06.02 Shortness of breath (principal); J44.9 Chronic obstructive pulmonary disease, unspecified; E89.0 Postprocedural hypothyroidism; Z20.822 Contact with and (suspected) exposure to COVID-19; I10 Essential (primary) hypertension; E78.5 Hyperlipidemia, unspecified; E11.9 Type 2 diabetes mellitus without complications; F17.200 Nicotine dependence, unspecified, uncomplicated
CPT/HCPCS: 36415; 36600; 71045; 71275; 80053; 82805; 83690; 83880; 84443; 84484; 85025; 85380; 93005; 94640; 96361; 96374; 99283; 99284; A9270; C9803; J2930; J7120; Q9967; U0003; U0005

== ENCOUNTER 2021-12-13 13:38 | Outpatient (CLI) | payer MEDICARE, MEDICAID, SELFPAY ==
--- NOTE | ~2021-12-13 | XR_ITS ---
EXAMINATION: XR heel LT min 2V DATE: 12/13/2021 14:20 INDICATION: Left heel wound. TECHNIQUE: 2 views of left calcaneus were obtained. COMPARISON: None. FINDINGS: Bone alignment is normal. No fracture. There is mild midfoot osteoarthritis. There are enth esophytes at the posterior and plantar aspects of calcaneal tuberosity. IMPRESSION: 1. No evidence of osteomyelitis. Reviewed, dictated and finalized at location A. TING MANAGER
--- NOTE | ~2021-12-13 | US_ITS ---
US arterial ankle brachial ind INDICATION: Leg pain. TECHNIQUE: Segmental pressures and plethysmographic and Doppler waveforms of the brachial and lower e xtremity arteries were obtained. COMPARISON: None. FINDINGS: Right and left brachial artery pressures of 163 mm Hg and 170 mm Hg, respectively, are concordant (no rmal difference <= 30 mmHg). The right ankle-brachial index (JENNIFER) is 0.78 (normal >= 0.9-1.0). The right great toe-brachial index (TBI) is 0.68 (normal >= 0.60). The left JENNIFER is 0.73. The left TBI is 0.61. IMPRESSION: 1. Diminished bilateral ankle-brachial indices, consistent with mild peripheral arterial disease. Reviewed, dictated and finalized at location B. IT DEPARTMENT MANAGER
== END 2021-12-13 13:39 | disposition home or self-care (01) ==
LOC: CHSIMG 13:41
PROVIDERS: PCP Nurse Practitioner Family; Visit Provider Nurse Practitioner Family
DX: I83.90 Asymptomatic varicose veins of unspecified lower extremity (principal); L97.429 Non-pressure chronic ulcer of left heel and midfoot with unspecified severity; S91.302A Unspecified open wound, left foot, initial encounter
CPT/HCPCS: 73650; 93922

== ENCOUNTER 2021-12-24 10:11 | Outpatient (RCR) | payer MEDICARE, MEDICAID, SELFPAY | END 2022-01-23 23:59 | disposition home or self-care (01) | LOC: CHSWOUND 10:11 | PROVIDERS: PCP Nurse Practitioner Family; Visit Provider Nurse Practitioner Family | DX: E11.621 Type 2 diabetes mellitus with foot ulcer (principal); L97.421 Non-pressure chronic ulcer of left heel and midfoot limited to breakdown of skin; E11.43 Type 2 diabetes mellitus with diabetic autonomic (poly)neuropathy; J44.9 Chronic obstructive pulmonary disease, unspecified; I10 Essential (primary) hypertension; E78.5 Hyperlipidemia, unspecified; E03.9 Hypothyroidism, unspecified; G80.4 Ataxic cerebral palsy; F32.A Depression, unspecified; F17.200 Nicotine dependence, unspecified, uncomplicated | CPT/HCPCS: 99214; G0463 ==

== ENCOUNTER 2022-05-30 15:48 | Emergency (ER) | payer MEDICARE, MEDICAID, SELFPAY ==
--- NOTE | 2022-05-30 15:57 | ED.GENADULT ---
HPI - General Adult General Chief complaint: Wound/Laceration Stated complaint: urinary issues, rt side sore Time Seen by Provider: 05/30/22 15:51 Source: patient History of Present Illness HPI narrative: This is a 56-year-old female with a history of cerebral palsy and COPD presenting to the ED with a chief complaint of a wound on her right hip. She has a dime-sized wound on her greater trochanter. She has had it for approximately 3 weeks. One of her friends at home has been applying Neosporin and doing dressing changes on it daily. The wound developed where she lays on that side. The patient is largely immobile due to her multiple comorbidities including COPD and cerebral palsy. Patient denies systemic signs of illness such as fever, chills, nausea, vomiting or diarrhea. The wound is getting smaller. There is no surrounding erythema or area of fluctuance. The patient also notes that she has been having pain on urination, increased urinary frequency and your increased urinary urgency. Related Data Allergies Allergy/AdvReac Type Severity Reaction Status Date / Time No Known Allergies Allergy Verified 05/30/22 16:14 Review of Systems Constitutional: Constitutional: Denies fever(s) Eyes: Eyes: Reports no additional eye complaints ENT: Reports system reviewed and no additional complaints, except as documented Cardiovascular: Cardiovascular: Denies chest pain Respiratory: Respiratory: Reports dyspnea Gastrointestinal: Gastrointestinal: Denies abdominal pain Genitourinary: Genitourinary: Reports nocturia, Reports dysuria and Reports urinary incontinence Musculoskeletal: Musculoskeletal: Reports myalgias Comments: Chronic pain Integumentary/Breasts: Skin/Breast: Denies rash Neurologic: Denies confusion Psychiatric: Psychiatric: Reports anxiety Endocrine: Endocrine: Denies excessive sweating Hematologic/Lymphatic: Hematologic/Lymphatic: Denies easy bleeding Allergic/Immunologic: Allergic/Immunologic: Denies lip swelling PMFSH Past Medical History Medical History (Updated 05/30/22 @ 17:41 by Rakesh Thompson MD) BMI 33.0-33.9,adult COPD (chronic obstructive pulmonary disease) Depression HTN (hypertension) Hyperlipidemia Hypothyroidism Low back pain Nicotine dependence, cigarettes, uncomplicated Type 2 diabetes mellitus Surgical History Surgical History Hx of thyroidectomy 2002 Hx of tonsillectomy Age 16 Family History Family History Father Diabetes mellitus Heart disease Social History Social History Smoking packs per day: 0.5 Smoking cigarettes per day: 10.0 Years smoked: 40 Smoking pack-years: 20.00 Smoking status: Current every day smoker Alcohol intake: current Substance use: never Substance use type: does not use Gender identity (if verbalized by the patient): Female Exam Narrative: the patient is laying in bed. She is tearful during our interview. She is sad because she is no longer mobile enough to go outside and has multiple health issues. Const: General: alert Nutritional Appearance: obese Orientation/consciousness: patient oriented x3 HENMT: Head: normal to inspection Ears: external ears normal General nose exam: Normal external nose present Face and sinus: normal facial exam Eyes: Pupils: Equal, round and reactive pupils present EOM: EOMs intact bilaterally Neck: Neck: normal visual inspection Chest: Chest palpation & inspection: normal inspection of the chest Resp: Effort & Inspection: normal respiratory effort Auscultation: wheezes expiratory wheezes Cardio: Rate: regular rate GI: Inspection: distended GI Palp: Yes Soft to palpation, No Tenderness to palpation present (GI) and No Guarding due to palpation present (GI) : Other: Unable to palpate suprapubic
[2022-05-30 16:11] VITALS: BP 145/106; PULSE 85; RESP 20; TEMP 36.9; O2SAT 97
[2022-05-30] MEDS: IPRATROPIUM 0.5 MG/ALBUTEROL SULFATE 2.5 MG AMPUL.NEB 3 ML INHALATION (16:32)
[2022-05-30 16:33] VITALS: PULSE 86; RESP 18; O2SAT 96
[2022-05-30 16:35] LABS: Appearance Urine Clear (Clear); Bilirubin Urine Negative (Negative); Color Urine Light Yellow (Yellow); Glucose Urine UA 3+ (Negative); Ketones Urine Negative (Negative); Leukocyte Esterase Ur Trace LEU/UL (Negative); Nitrate Urine Negative (Negative); Protein Urine Negative (Negative); Specific Grav Ur 1.015 (1.010-1.020); Urobilinogen Urine 0.2 mg/dL (0.2-1.0); pH Urine 5.5 (5.0-8.0)
[2022-05-30 16:38] LABS: Add Urine Microscopic? YES; Bacteria Urine 1+ /hpf; Blood Urine Trace-Intact (Negative); RBC Urine 0-2 /hpf (0-2); Squamous Epithelial Cell Urine Few /hpf (Few)
[2022-05-30 16:43] VITALS: PULSE 69; RESP 20; O2SAT 96
[2022-05-30 16:49] LABS: Glucose Point of Care 435 mg/dl (65-105)
[2022-05-30 17:05] LABS: Hematocrit 48.4 % (35.0-49.0); Hemoglobin 15.9 g/dL (12.0-15.0); Mean Corpuscular HGB Conc 32.9 g/dL (32.0-36.0); Mean Corpuscular Hemoglobin 31.1 pg (27.0-31.0); Mean Corpuscular Volume 94.7 fL (78.0-102.0); Mean Platelet Volume 10.6 fl (9.2-11.8); Platelet Count Result 245 K/mm3 (150-420); Red Blood Count 5.11 M/mm3 (4.20-5.40); Red Cell Distribution Width 13.6 % (11.6-14.4); White Blood Count 12.7 K/mm3 (4.8-10.8)
[2022-05-30] MEDS: HYDROcodone/acetaminophen (*CRX) 5-325 MG TABLET 2 TAB PO (17:12)
[2022-05-30 17:28] LABS: Anion Gap 17 mmol/L (8-16); Blood Urea Nitrogen 13 mg/dL (7-18); Carbon Dioxide 21 mmol/L (21-32); Chloride 96 mmol/L (98-108); Estimated CRCL calculation 54 ml/min; Estimated Glomerular Filt Rate 50; Potassium 3.9 mmol/L (3.5-5.1); Sodium 134 mmol/L (136-145)
[2022-05-30 17:29] LABS: Glucose 569 mg/dL (70-99); Osmolality Calculated 304 mOsm/kg (285-295)
--- NOTE | 2022-05-30 17:29 | PC.NURSE ---
LAb reports glucose of 569, erp notified.
[2022-05-30 18:10] VITALS: BP 145/78; PULSE 81; RESP 20; TEMP 37.1; O2SAT 96
== END 2022-05-30 18:18 | disposition home or self-care (01) ==
PROVIDERS: Emergency Provider Emergency Medicine; PCP Nurse Practitioner Family
DX: L89.212 Pressure ulcer of right hip, stage 2 (principal); N39.0 Urinary tract infection, site not specified; E11.9 Type 2 diabetes mellitus without complications; J44.9 Chronic obstructive pulmonary disease, unspecified; I10 Essential (primary) hypertension; E78.5 Hyperlipidemia, unspecified; E03.9 Hypothyroidism, unspecified; M54.50 Low back pain, unspecified; G80.9 Cerebral palsy, unspecified; F32.A Depression, unspecified; F17.210 Nicotine dependence, cigarettes, uncomplicated
CPT/HCPCS: 36415; 80048; 81001; 82948; 85027; 87077; 87086; 87088; 94640; 99283; A9270

== ENCOUNTER 2022-06-02 18:47 | Emergency (ER) | payer MEDICARE, MEDICAID, SELFPAY ==
--- NOTE | ~2022-06-02 | XR_ITS ---
EXAM: XR foot RT 2V DATE: 06/02/2022 20:18 HISTORY: Pain and swelling of R 5th toe. IDDM. No ulcer. . COMPARISON: None available. FINDINGS: Exam limited by incomplete visualization of the fifth toe in the lateral view. Decreased mi neralization. No fracture or dislocation. No lytic or blastic lesion. Joint spaces are maintained. Ac hilles and plantar enthesopathy. Extensive ossification of the Achilles tendon. No erosion or periost eal change. Soft tissues within normal limits. IMPRESSION: Limited exam without definite evidence of osteomyelitis. Reviewed, dictated and finalized at location K.
[2022-06-02 19:34] VITALS: BP 129/81; PULSE 83; RESP 20; TEMP 36.6; O2SAT 95
[2022-06-02 20:05] LABS: Glucose Point of Care > 450 mg/dl (65-105)
[2022-06-02] MEDS: IBUPROFEN 400 MG TABLET 800 MG PO (20:15)
[2022-06-02] MEDS: ACETAMINOPHEN 500 MG TABLET 1000 MG PO (20:16)
[2022-06-02 20:29] LABS: Basophils Absolute Auto 0.09 K/mm3 (0.00-0.10); Basophils Percent Auto 0.9 % (0.0-1.0); Eosinophils Absolute Auto 0.18 K/mm3 (0.02-0.50); Eosinophils Percent Auto 1.8 % (1.0-6.0); Hematocrit 44.8 % (35.0-49.0); Hemoglobin 14.6 g/dL (12.0-15.0); Immature Granulocyte Absolute 0.05 K/mm3 (0.00-0.00); Immature Granulocyte Percent A 0.5 % (0.0-0.0); Lymphocytes Absolute Auto 2.97 K/mm3 (1.10-4.50); Lymphocytes Percent Auto 29.2 % (18.0-42.0); Mean Corpuscular HGB Conc 32.6 g/dL (32.0-36.0); Mean Corpuscular Hemoglobin 30.9 pg (27.0-31.0); Mean Corpuscular Volume 94.9 fL (78.0-102.0); Mean Platelet Volume 10.3 fl (9.2-11.8); Monocytes Absolute Auto 0.59 K/mm3 (0.10-0.90); Monocytes Percent Auto 5.8 % (2.0-11.0); Neutrophils Absolute Auto 6.3 K/mm3 (1.7-7.2); Neutrophils Percent Auto 61.8 % (50.0-70.0); Platelet Count Result 224 K/mm3 (150-420); Red Blood Count 4.72 M/mm3 (4.20-5.40); Red Cell Distribution Width 13.7 % (11.6-14.4); White Blood Count 10.2 K/mm3 (4.8-10.8)
[2022-06-02 20:36] LABS: Anion Gap 11 mmol/L (8-16); Blood Urea Nitrogen 20 mg/dL (7-18); Calcium 8.9 mg/dL (8.5-10.1); Carbon Dioxide 25 mmol/L (21-32); Chloride 100 mmol/L (98-108); Estimated CRCL calculation 67 ml/min; Estimated Glomerular Filt Rate 59; Osmolality Calculated 306 mOsm/kg (285-295); Sodium 136 mmol/L (136-145)
[2022-06-02 20:43] LABS: Glucose 491 mg/dL (70-99)
--- NOTE | 2022-06-02 20:49 | ED.GENADULT ---
HPI - General Adult General Chief complaint: Extremity Problem,Nontraumatic Stated complaint: right toe pain History of Present Illness HPI narrative: This is a 56-year-old female with multiple medical comorbidities presenting to the ER with a chief complaint of right toe pain. Patient has chronic pain in her feet due to diabetic neuropathy. Additionally she has peripheral artery disease. She says she is scheduled for a bypass to improve her circulation. The patient says that her right toe has been hurting. She denies trauma. The patient was seen here several days ago for multiple unrelated complaints Including a well-healing states she has decubitus ulcer on her right hip, UTI, and a mild COPD exacerbation. All of those issues have since been resolved. The patient states that she has been taking her medication as directed. She has not followed up with her primary care physician, or her vascular surgeon. Related Data Home Medications Medication Instructions Recorded Confirmed insulin degludec 100 unit/mL (3 70 unit subcut DAILY 06/02/22 06/02/22 mL) subcutaneous pen (Tresiba FlexTouch U-100 insulin) Allergies Allergy/AdvReac Type Severity Reaction Status Date / Time No Known Allergies Allergy Verified 05/30/22 16:14 Review of Systems Constitutional: Constitutional: Denies fever(s) Eyes: Eyes: Denies no additional eye complaints ENT: Denies dysphagia Cardiovascular: Cardiovascular: Denies chest pain Respiratory: Respiratory: Denies no additional respiratory complaints Gastrointestinal: Gastrointestinal: Denies no additional gastrointestinal complaints Genitourinary: Genitourinary: Denies abnormal vaginal bleeding Musculoskeletal: Musculoskeletal: Denies back pain Integumentary/Breasts: Skin/Breast: Reports breast pain and Denies rash Neurologic: Denies confusion Psychiatric: Psychiatric: Denies anxiety Endocrine: Endocrine: Denies excessive sweating Hematologic/Lymphatic: Hematologic/Lymphatic: Denies easy bleeding Allergic/Immunologic: Allergic/Immunologic: Denies lip swelling PMFSH Past Medical History Medical History BMI 33.0-33.9,adult COPD (chronic obstructive pulmonary disease) Depression HTN (hypertension) Hyperlipidemia Hypothyroidism Low back pain Nicotine dependence, cigarettes, uncomplicated Type 2 diabetes mellitus Surgical History Surgical History Hx of thyroidectomy 2002 Hx of tonsillectomy Age 16 Family History Family History Father Diabetes mellitus Heart disease Social History Social History Smoking packs per day: 0.5 Smoking cigarettes per day: 10.0 Years smoked: 40 Smoking pack-years: 20.00 Smoking status: Current every day smoker Alcohol intake: current Substance use: never Substance use type: does not use Gender identity (if verbalized by the patient): Female Exam Const: General: No healthy appearing Nutritional Appearance: well nourished Orientation/consciousness: patient oriented x3 HENMT: Head: normal to inspection Ears: external ears normal General nose exam: Normal external nose present Face and sinus: normal facial exam Mouth: Yes Normal oral and palatal mucosa present Eyes: Conjunctivae: conjunctivae normal Pupils: Equal, round and reactive pupils present Neck: Neck: normal visual inspection Chest: Chest palpation & inspection: normal inspection of the chest Resp: Effort & Inspection: normal respiratory effort Auscultation: no wheezes Cardio: Rate: regular rate Rhythm: regular rhythm GI: GI Palp: Yes Soft to palpation, No Tenderness to palpation present (GI) and No Guarding due to palpation present (GI) Back/Spine/Pelvis: Back: no CVA tenderness Skin: General skin exam: No kole
[2022-06-02 20:52] VITALS: BP 126/92; PULSE 84; RESP 18; TEMP 36.8; O2SAT 98
[2022-06-06 14:03] LABS: Hemoglobin A1C 11.8 % (<5.7)
== END 2022-06-02 21:04 | disposition home or self-care (01) ==
PROVIDERS: Emergency Provider Emergency Medicine; PCP Nurse Practitioner Family
DX: G62.9 Polyneuropathy, unspecified (principal); E11.9 Type 2 diabetes mellitus without complications; I73.9 Peripheral vascular disease, unspecified; J44.9 Chronic obstructive pulmonary disease, unspecified; I10 Essential (primary) hypertension; E78.5 Hyperlipidemia, unspecified; E03.9 Hypothyroidism, unspecified; F17.200 Nicotine dependence, unspecified, uncomplicated
CPT/HCPCS: 36415; 73620; 80048; 82948; 83036; 85025; 99283; A9270

== ENCOUNTER 2022-06-03 22:09 | Emergency (ER) | payer MEDICARE, MEDICAID, SELFPAY ==
--- NOTE | ~2022-06-03 | XR_ITS ---
EXAMINATION: XR toe 5th RT min 2V DATE: 06/03/2022 23:08 INDICATION: Right fifth toe pain TECHNIQUE: Dorsal plantar, lateral and 2 oblique views of the right fifth were obtained. COMPARISON: Right foot radiographs dated 06/02/2022 FINDINGS: Bone alignment is normal. No fracture. Fifth distal interphalangeal joint is fused which is likely de velopmental. Mild polyarticular osteoarthritis at the majority of the visualized joints in the right mid and forefoot. No erosions or periosteal reaction to suggest osteomyelitis. Soft tissues are unrem arkable. IMPRESSION: Mild polyarticular osteoarthritis at the right mid and forefoot. No acute osseous abnormality. Reviewed, dictated and finalized at location A. IMPRESSION: Mild polyarticular osteoarthritis at the right mid and forefoot. No acute osseo us abnormality.
[2022-06-03 22:12] VITALS: BP 148/90; PULSE 71; RESP 18; TEMP 36.4; O2SAT 96
[2022-06-03 22:26] LABS: Basophils Absolute Auto 0.1 K/mm3 (0.0-0.1); Basophils Percent Auto 1.3 % (0.2-1.2); Eosinophils Absolute Auto 0.2 K/mm3 (0-0.3); Hematocrit 47.3 % (37.0-47.0); Immature Granulocyte Absolute 0.04 K/mm3 (0.00-0.031); Immature Granulocyte Percent A 0.4 % (0-0.5); Lymphocytes Absolute Auto 3.09 K/mm3 (0.9-3.2); Lymphocytes Percent Auto 31.5 % (18.3-44.2); Mean Corpuscular HGB Conc 31.7 g/dl (32-36); Mean Corpuscular Hemoglobin 30.4 pg (26-34); Mean Corpuscular Volume 95.7 fl (80-100); Mean Platelet Volume 10.5 fl (7.4-10.4); Monocytes Absolute Auto 0.5 K/mm3 (0.1-0.6); Monocytes Percent Auto 5.3 % (2.6-8.5); Neutrophils Absolute Auto 5.8 K/mm3 (1.3-6.7); Neutrophils Percent Auto 59.5 % (45.5-73.1); Platelet Count Result 232 k/mm3 (150-375); Red Blood Count 4.94 M/mm3 (4.2-5.4); Red Cell Distribution Width 14.1 % (11.5-14.5); White Blood Count 9.8 K/mm3 (4.5-10.0)
[2022-06-03 22:36] LABS: Glucose Point of Care > 500 mg/dl (65-105)
[2022-06-03 23:00] LABS: Alanine Aminotransferase 21 U/L (6-35); Alkaline Phosphatase 116 U/L (38-126); Anion Gap 10 mmol/L (8-16); Aspartate Amino Transferase 26 U/L (14-36); Bilirubin,Total 0.3 mg/dL (0.2-1.3); Blood Urea Nitrogen 16 mg/dL (7-17); Calcium 8.6 mg/dL (8.4-10.2); Carbon Dioxide 28 mmol/L (22-30); Chloride 98 mmol/L (98-107); Estimated CRCL calculation 86 ml/min; Estimated Glomerular Filt Rate > 60; Glucose 518 mg/dL (65-110); Sodium 136 mmol/L (137-145)
[2022-06-03] MEDS: SODIUM CHLORIDE 0.9% IV 1,000 ML 999 ML IV CONT (23:28)
[2022-06-03] MEDS: INSULIN HUMAN REGULAR (*BKC) 100 UNITS/ML 10 UNITS IV PUSH (23:29)
--- NOTE | 2022-06-03 23:52 | ED.GENADULT ---
HPI - General Adult General Chief complaint: Recheck/Abnormal Lab/Rx Stated complaint: non compliant diabetes, wound to right foot Time Seen by Provider: 06/03/22 23:00 History of Present Illness HPI narrative: Patient is a 56-year-old female who presents the emergency department with chief complaint of poorly controlled diabetes and hyperglycemia. Patient reports that she has been minimally compliant with her insulin for her diabetes and reports that she has had chronic pain and has noticed that her toe has been dusky for several months patient states she is scheduled to have a bypass done on her lower extremity but has not had that scheduled yet by her vascular surgeon. Patient reports that she has been not taking her insulin and her blood sugars have been running in the 500s patient was seen in another emergency department last night and was instructed to follow-up with her vascular surgeon. The patient reports that she has been in more pain and has not been feeling well. Patient denies fever denies chest pain denies shortness of breath. Related Data Home Medications Medication Instructions Recorded Confirmed insulin degludec 100 unit/mL (3 70 unit subcut DAILY 06/02/22 06/02/22 mL) subcutaneous pen (Tresiba FlexTouch U-100 insulin) Allergies Allergy/AdvReac Type Severity Reaction Status Date / Time No Known Allergies Allergy Verified 05/30/22 16:14 Review of Systems Review of Systems: A 10 system review of systems was completed on the patient and is negative except for what is stated in the HPI. Nursing and ancillary documentation was reviewed. [facility] Past Medical History Medical History (Updated 06/04/22 @ 01:09 by Jamari Terrell MD) BMI 33.0-33.9,adult COPD (chronic obstructive pulmonary disease) Depression HTN (hypertension) Hyperlipidemia Hypothyroidism Low back pain Nicotine dependence, cigarettes, uncomplicated Type 2 diabetes mellitus Surgical History Surgical History Hx of thyroidectomy 2002 Hx of tonsillectomy Age 16 Family History Family History Father Diabetes mellitus Heart disease Social History Social History Smoking packs per day: 0.5 Smoking cigarettes per day: 10.0 Years smoked: 40 Smoking pack-years: 20.00 Smoking status: Current every day smoker Alcohol intake: current Substance use: never Substance use type: does not use Gender identity (if verbalized by the patient): Female Exam Narrative: GENERAL: Well-appearing, well-nourished, and in no acute distress. HEAD: Normocephalic, atraumatic. EYES: PERRLA and EOMI. ENT: Nares clear, no rhinorrhea or epistaxis. Mucous membranes moist. NECK: Supple. CHEST: Clear to auscultation. No respiratory distress. HEART: Regular rate and rhythm. No murmur heard. Normal peripheral pulses. ABDOMEN: Soft, nontender, nondistended, normal active bowel sounds. EXTREMITIES: Normal range of motion. No edema. There is an intact dorsalis pedis present on the right lower extremity. The right fifth toe is dusky SKIN: Warm, dry, no rash. NEURO: No focal deficits. Alert and oriented x3. PSYCH: Normal mood and affect. Course Vital Signs Vital signs: Vital Signs Temperature 36.4 C 06/03/22 22:12 Pulse Rate 71 06/03/22 22:12 Respiratory Rate 18 06/03/22 22:12 Blood Pressure 148/90 H 06/03/22 22:12 Pulse Oximetry 96 06/03/22 22:12 Oxygen Delivery Room Air 06/03/22 22:12 Temperature 36.4 C 06/03/22 22:12 Pulse Rate 63 06/04/22 01:29 Respiratory Rate 13 06/04/22 01:29 Blood Pressure 106/63 06/04/22 01:29 Pulse Oximetry 95 06/03/22 23:58 Oxygen Delivery Room Air 06/03/22 22:12 Medical Decision Making Vital Signs Vital Signs: Vital Signs Temperature 36.4 C 06/03/22
[2022-06-03 23:58] VITALS: BP 125/79; PULSE 67; RESP 13; O2SAT 95
[2022-06-04 00:40] LABS: Glucose Point of Care 353 mg/dl (65-105)
[2022-06-04 01:29] VITALS: BP 106/63; PULSE 63; RESP 13
[2022-06-04 01:56] VITALS: BP 114/69; PULSE 72; RESP 14; O2SAT 96
--- NOTE | 2022-06-04 16:32 | PC.NURSE ---
pt.'s family kept reporting on way to get pt. Care Coordination was involved. Talat has arrived and is taking pt. home. Cousin on phone was cursing rn coronary care unit and started cussing at me. Obtained pt.'s permission to tell cousin that she was on her way home and would contact him BILL. Cousin wanted details; I repeated pt. was on her way home and would contact him BILL.
--- NOTE | 2022-06-04 17:06 | PCCCNOTE ---
1550 Vocera notification received from GRINDER SET UP OPERATOR EXTERNAL Akhil about transportation, family of patient has said multiple times that they were on the way to moss picker the patient but she has not be picked up yet. Met with patient in the ER waiting room, she states that the best person to call is her cousin Talat Antony at his work number. Patient provides wound care nurse with a post it note [phone] which is a [place] K, asked to speak with Talat, spoke directly with Talat and explained the urgent situation of transportation for the patient and how long she has been waiting. He thought that someone else in the family would have picked her up, but he assumes responsibility and states that he can be at [place] in 45 minutes. Patient states that she has received a sandwich, crackers and drinks from staff while she has been waiting for ride. Patient does not have any socks or footwear. Sr Risk Management Consultant provides footies and another drink. 1645 missionary coordinator goes out to ER waiting room and per webbing supervisor, Gabbie has been picked up.
== END 2022-06-04 02:07 | disposition home or self-care (01) ==
PROVIDERS: Emergency Provider Emergency Medicine; PCP Nurse Practitioner Family
DX: E11.65 Type 2 diabetes mellitus with hyperglycemia (principal); E11.51 Type 2 diabetes mellitus with diabetic peripheral angiopathy without gangrene; I73.9 Peripheral vascular disease, unspecified; M79.671 Pain in right foot; T38.3X6A Underdosing of insulin and oral hypoglycemic [antidiabetic] drugs, initial encounter; Z91.128 Patient's intentional underdosing of medication regimen for other reason; J44.9 Chronic obstructive pulmonary disease, unspecified; I10 Essential (primary) hypertension; E78.5 Hyperlipidemia, unspecified; E89.0 Postprocedural hypothyroidism; F17.210 Nicotine dependence, cigarettes, uncomplicated; F32.A Depression, unspecified; Z79.899 Other long term (current) drug therapy; Z79.84 Long term (current) use of oral hypoglycemic drugs; M19.071 Primary osteoarthritis, right ankle and foot
CPT/HCPCS: 36415; 73660; 80053; 82948; 85025; 96361; 96374; 99284; J1815; J7030

== ENCOUNTER 2022-07-17 16:38 | Inpatient (IN) | payer MEDICARE, MEDICAID, SELFPAY ==
--- NOTE | 2022-07-17 16:56 | ADMGEN ---
This patient, Paula Duron, was admitted to 2nd Floor Room 209-1. Patient/family oriented to hospital policies and general routines including ID bracelet, bed and alarms, visiting hours, pain management, procedures, bathroom and other care routines, personal items, smoking policy, room service/diet, and visiting hours. Information on how to activate the Rapid Response Team has been discussed. Patient/Family are encouraged to report perceived risks to care and to ask questions if they do not understand what they are told or what they should do.
[2022-07-17 17:08] VITALS: BMI 37.8
[2022-07-17 17:33] LABS: Glucose Point of Care 238 mg/dl (65-105)
[2022-07-17 17:36] VITALS: PULSE 60; RESP 16; O2SAT 98
[2022-07-17 17:37] VITALS: BP 122/57; PULSE 60; TEMP 36.5; O2SAT 98
[2022-07-17 17:48] VITALS: BP 122/57; PULSE 60; RESP 16; TEMP 36.5; O2SAT 98; BMI 37.8
[2022-07-17] MEDS: HYDROcodone/acetaminophen (*CRX) 5-325 MG TABLET 1 TAB PO (19:59)
[2022-07-17] MEDS: INSULIN GLARGINE (*BKC) 100 UNITS/ML 20 UNITS SUB-Q (20:53)
[2022-07-17] MEDS: ATORVASTATIN 10 MG TABLET PO (20:54)
[2022-07-17] MEDS: CEPHALEXIN 500 MG CAPSULE PO ×2 (20:55→22:59)
[2022-07-17 20:58] LABS: Glucose Point of Care 313 mg/dl (65-105)
[2022-07-17] MEDS: MELATONIN 5 MG TABLET PO (22:57)
[2022-07-17 23:03] VITALS: BP 121/69; PULSE 62; RESP 14; TEMP 36.4; O2SAT 92
[2022-07-18] MEDS: HYDROcodone/acetaminophen (*CRX) 5-325 MG TABLET 1 TAB PO ×3 (02:50→16:55)
--- NOTE | 2022-07-18 02:57 | PC.NURSE ---
Pt had an incontinent void. This RN and assistance provided by Jillian Lopez RN cleaned the pt and changed the bed linens w/clean ones. Pt gown changed and a depend was placed on the pt. Pt was able to stand for a short period while the linens were changed. Once pt was placed back into bed w/the call light w/in reach, Emilee stated her pain had returned. A prn [place] was given as requested. Pt stated she feels she may have a bm soon, and verbalized she understands to call the nurses station for assistance to help her to the commode. Side railsx3;night light on.
--- NOTE | 2022-07-18 03:22 | PC.NURSE ---
Pt transferred from bed to [facility] [place] to attempt to have a bm. This pt was assisted by wilbert RN and Jillian Lopez RN. Pt was instructed to push the call light which she had w/in reach when she was finished. After sitting for 5 minutes the pt stated she could feel the pressure, but was unable to have a bm. Pt was then returned back to bed. Call light w/in reach;side railsx3; night light on for pt safety.
[2022-07-18] MEDS: CEPHALEXIN 500 MG CAPSULE PO ×3 (05:28→16:55)
[2022-07-18] MEDS: LEVOTHYROXINE SODIUM 25 MCG TABLET PO (05:31)
[2022-07-18] MEDS: LEVOTHYROXINE SODIUM 100 MCG TABLET PO (05:31)
--- NOTE | 2022-07-18 05:33 | PC.NURSE ---
Pt transferred from bed to commode w/2 assist. Pt instructed not to strain to hard for a bm. Pt did eventually have a bm consisting of brown w/some bright red streaks, formed stool. Stool was spherical in appearance and around the size of a golf ball. Pt's perianal area wiped w/hygiene wipe by Jillian Lopez RN. Pt then returned back to bed and stated I need to just lay down guys my stomach hurts. Call light w/in reach; side railsx3; night light on for pt safety.
[2022-07-18 07:53] LABS: Glucose Point of Care 270 mg/dl (65-105)
[2022-07-18 07:57] VITALS: BP 109/67; PULSE 66; RESP 16; TEMP 36.2; O2SAT 96
[2022-07-18] MEDS: ONDANSETRON HCL ODT 4 MG TABLET PO (08:45)
--- NOTE | 2022-07-18 09:13 | PHAR ---
VERIFIED PT HOME MED FAXIGA 5MG PO ONCE DAILY. TLS
[2022-07-18] MEDS: INSULIN GLARGINE (LANTUS) 1,000 UNITS/10 ML VIAL 70 UNITS SUB-Q (09:18)
[2022-07-18] MEDS: DAPAGLIFLOZIN 5 MG 1 EACH PO (09:20)
[2022-07-18] MEDS: ESCITALOPRAM OXALATE 10 MG TABLET 20 MG PO (09:20)
[2022-07-18] MEDS: allopurinoL 100 MG TABLET PO (09:21)
[2022-07-18] MEDS: DOCUSATE SODIUM 100 MG CAPSULE PO (09:21)
[2022-07-18] MEDS: GABAPENTIN 300 MG CAPSULE PO ×3 (09:23→16:55)
[2022-07-18] MEDS: lisinopriL 10 MG TABLET PO (09:23)
[2022-07-18] MEDS: metFORMIN HCL XR 500 MG TAB.SR.24H PO (09:24)
--- NOTE | 2022-07-18 10:32 | PM.IMHP ---
H&P: HPI History of Present Illness Date/Time: 07/18/22 10:32 Chief Complaint: Weakness, Rehab, CP DM Narrative: This is a 56-year-old female presents to the hospital from [facility] in [place]. Patient is admitted for rehab unit after she had a stent there with bilateral lower extremity claudication and had a surgical procedure patient has a past medical history of uncontrolled diabetes, tobacco use, obesity, hypothyroidism, hyperlipidemia, gout, hypertension, and cerebral palsy was informed that patient has several complications surgery was canceled and then changed to the right lower extremity versus the left she had a DIRECTOR DRUG SAFETY?[place] bypass. Patient still remains weak and tired patient will continue to be monitored for any wounds nicotine patch as she needs it we will continue to monitor blood sugars and check her blood sugars and adjust accordingly patient's hemoglobin A1c at [facility] was 13.3 her BMI is 38 patient is currently on levothyroxine at 125 mcg blood pressure at this time is controlled she is given heparin DVT prophylactic currently at this time she is showing no signs and symptoms of infection is able to participate we will admit this patient as a swing patient and continue to monitor and treat accordingly Review of Systems Review of Systems: Foot pain diabetes, pain control All systems reviewed & are unremarkable except as noted in HPI and below PMFSH Past Medical History Medical History (Updated 07/18/22 @ 12:20 by Raquel Samuel NP) BMI 33.0-33.9,adult COPD (chronic obstructive pulmonary disease) Depression HTN (hypertension) Hyperlipidemia Hypothyroidism Low back pain Nicotine dependence, cigarettes, uncomplicated Type 2 diabetes mellitus Surgical History Surgical History Hx of thyroidectomy 2002 Hx of tonsillectomy Age 16 Family History Family History Father Diabetes mellitus Heart disease Social History Social History Smoking packs per day: 0.5 Smoking cigarettes per day: 10.0 Years smoked: 40 Smoking pack-years: 20.00 Smoking status: Current every day smoker Second hand tobacco smoke exposure: Yes Alcohol intake: former Substance use: former Substance use type: does not use Gender identity (if verbalized by the patient): Female Spiritual care concerns: No Comments At time as signature, I have reviewed and agree with nursing past medical, social, surgical and family history. Please see nursing chart for further information. There is no relevant family history pertinent to the presenting complaint. Meds Home Medications and Allergies Home Medications Medication Instructions Recorded Confirmed Type dulaglutide 0.75 mg/0.5 mL 0.75 mg (0.5 mL) subcut WEEKLY #2 07/01/22 07/17/22 Rx subcutaneous pen injector mL (Trulicity) ergocalciferol (vitamin D2) 1,250 1,250 mcg PO WEEKLY #10 caps 07/01/22 07/17/22 Rx mcg (50,000 unit) capsule insulin degludec 100 unit/mL (3 70 unit (0.7 mL) subcut DAILY #15 07/01/22 07/17/22 Rx mL) subcutaneous pen (Tresiba mL FlexTouch U-100 insulin) acetaminophen 650 mg 1,300 mg PO Q8H PRN Pain, Mild 07/17/22 07/17/22 History tablet,extended release (Tylenol 8 Hour) albuterol sulfate 90 mcg/actuation 2 puff inhalation Q6H PRN 07/17/22 07/17/22 History aerosol inhaler shortness of breath or wheezing allopurinol 100 mg tablet 100 mg PO DAILY 07/17/22 07/17/22 History atorvastatin 10 mg tablet 10 mg PO HS 07/17/22 07/17/22 History cephalexin 500 mg capsule 500 mg PO Q6H 07/17/22 07/17/22 History dapagliflozin 5 mg tablet (Farxiga) 5 mg PO DAILY 07/17/22 07/17/22 History docusate sodium 100 mg capsule 100 mg PO DAILY PRN Constipation 07/17/22 07/17/22 History escitalopram oxalate 20 mg tablet 20 mg PO DAILY 07/17/22 07/17/22 History (Josefina
[2022-07-18 11:39] LABS: Glucose Point of Care 265 mg/dl (65-105)
[2022-07-18 16:00] VITALS: BP 114/56; PULSE 71; RESP 16; TEMP 36.6; O2SAT 94
[2022-07-18 16:34] LABS: Glucose Point of Care 342 mg/dl (65-105)
--- NOTE | 2022-07-18 19:00 | PC.NURSE ---
Charting this day by Piper Dunham, Student nurse. All charting reviewed and agreed with by this nurse.
[2022-07-18] MEDS: INSULIN GLARGINE (*BKC) 100 UNITS/ML 20 UNITS SUB-Q (20:09)
[2022-07-18] MEDS: MELATONIN 5 MG TABLET PO (20:10)
[2022-07-18] MEDS: ATORVASTATIN 10 MG TABLET PO (20:10)
[2022-07-18 20:11] LABS: Glucose Point of Care 336 mg/dl (65-105)
--- NOTE | 2022-07-18 21:27 | PC.NURSE ---
Pt requested a snack; pt was brought cottage cheese due to BG level being elevated. Pt needs further teaching on proper glucose management, and risks for chronic hyperglycemia. Call light w/in reach; side railsx2; night light on w/bed in lowest position for pt safety.
[2022-07-18 23:01] VITALS: BP 100/55; PULSE 69; RESP 17; TEMP 36.6; O2SAT 93
[2022-07-19] MEDS: CEPHALEXIN 500 MG CAPSULE PO ×4 (00:11→17:05)
[2022-07-19] MEDS: HYDROcodone/acetaminophen (*CRX) 5-325 MG TABLET 1 TAB PO ×3 (02:32→21:30)
--- NOTE | 2022-07-19 02:39 | PC.NURSE ---
Pt called nurses station and stated she had wet the bed. Upon entering the room this RN and Piper Jeffrey RN (charge nurse) found that a puddle of urine was on the floor. Piper called housekeeping while this RN gathered supplies to change the bed linens. The pt was given hygiene wipes to independently wipe her jaziel-area clean. Pt was transferred from bed to chair via walker and 2 assist and had assistance changing her gown provided by Piper while this RN removed the soiled linens bag. Vaughn from housekeeping came to mop the affected part of the floor while the 2 rns made the bed. Once housekeeping finished; pt was transferred back to bed via walker and 2 assist on the dry side of the bed. A depend was placed on the pt. A pillow was placed under the pt's R foot per request. Pt stated she was having pain in her toe and requested a prn [place]. Med given and pt made aware of the next time med is available should she need. Call light within reach, side railsx2, night light on, and bed in lowest position for pt safety.
[2022-07-19] MEDS: LEVOTHYROXINE SODIUM 100 MCG TABLET PO (06:42)
[2022-07-19] MEDS: LEVOTHYROXINE SODIUM 25 MCG TABLET PO (06:42)
[2022-07-19 07:54] VITALS: BP 117/45; PULSE 67; RESP 18; TEMP 36.4; O2SAT 96
[2022-07-19 07:55] LABS: Glucose Point of Care 180 mg/dl (65-105)
[2022-07-19] MEDS: metFORMIN HCL XR 500 MG TAB.SR.24H PO (08:50)
[2022-07-19] MEDS: INSULIN GLARGINE (LANTUS) 1,000 UNITS/10 ML VIAL 70 UNITS SUB-Q (08:50)
[2022-07-19] MEDS: DAPAGLIFLOZIN 5 MG 1 EACH PO (08:50)
[2022-07-19] MEDS: lisinopriL 10 MG TABLET PO (08:50)
[2022-07-19] MEDS: polyethylene glycoL 3350 17 GM POWD.PACK PO (08:50)
[2022-07-19] MEDS: allopurinoL 100 MG TABLET PO (08:51)
[2022-07-19] MEDS: DOCUSATE SODIUM 100 MG CAPSULE PO (08:51)
[2022-07-19] MEDS: ESCITALOPRAM OXALATE 10 MG TABLET 20 MG PO (08:51)
[2022-07-19] MEDS: GABAPENTIN 300 MG CAPSULE PO ×3 (08:51→17:05)
[2022-07-19 11:58] LABS: Glucose Point of Care 239 mg/dl (65-105)
[2022-07-19 16:00] VITALS: BP 137/65; PULSE 70; RESP 17; TEMP 36.9; O2SAT 94
[2022-07-19 16:51] LABS: Glucose Point of Care 108 mg/dl (65-105)
[2022-07-19] MEDS: MELATONIN 5 MG TABLET PO (20:50)
[2022-07-19] MEDS: ATORVASTATIN 10 MG TABLET PO (20:50)
[2022-07-19 20:52] LABS: Glucose Point of Care 205 mg/dl (65-105)
[2022-07-19] MEDS: INSULIN GLARGINE (*BKC) 100 UNITS/ML 20 UNITS SUB-Q (20:52)
[2022-07-19 23:42] VITALS: BP 126/65; PULSE 77; RESP 20; TEMP 36.8; O2SAT 20
[2022-07-20] MEDS: CEPHALEXIN 500 MG CAPSULE PO ×5 (00:07→23:04)
[2022-07-20] MEDS: LEVOTHYROXINE SODIUM 100 MCG TABLET PO (06:06)
[2022-07-20] MEDS: LEVOTHYROXINE SODIUM 25 MCG TABLET PO (06:06)
[2022-07-20 07:42] LABS: Glucose Point of Care 83 mg/dl (65-105)
[2022-07-20 08:00] VITALS: BP 151/78; PULSE 77; RESP 18; TEMP 36.6; O2SAT 95
[2022-07-20] MEDS: polyethylene glycoL 3350 17 GM POWD.PACK PO (09:10)
[2022-07-20] MEDS: metFORMIN HCL XR 500 MG TAB.SR.24H PO (09:13)
[2022-07-20] MEDS: DOCUSATE SODIUM 100 MG CAPSULE PO (09:13)
[2022-07-20] MEDS: ESCITALOPRAM OXALATE 10 MG TABLET 20 MG PO (09:14)
[2022-07-20] MEDS: GABAPENTIN 300 MG CAPSULE PO ×3 (09:14→17:03)
[2022-07-20] MEDS: allopurinoL 100 MG TABLET PO (09:15)
[2022-07-20] MEDS: lisinopriL 10 MG TABLET PO (09:15)
[2022-07-20] MEDS: DAPAGLIFLOZIN 5 MG 1 EACH PO (09:15)
[2022-07-20] MEDS: HYDROcodone/acetaminophen (*CRX) 5-325 MG TABLET 1 TAB PO ×2 (15:49→23:04)
[2022-07-20 16:00] VITALS: BP 135/82; PULSE 81; RESP 16; TEMP 36.4; O2SAT 94
[2022-07-20 16:39] LABS: Glucose Point of Care 147 mg/dl (65-105)
[2022-07-20 20:00] VITALS: PULSE 81; RESP 16; O2SAT 94
[2022-07-20] MEDS: ATORVASTATIN 10 MG TABLET PO (20:38)
[2022-07-20] MEDS: MELATONIN 5 MG TABLET PO (20:38)
[2022-07-20] MEDS: INSULIN GLARGINE (*BKC) 100 UNITS/ML 20 UNITS SUB-Q (20:39)
[2022-07-20 20:43] LABS: Glucose Point of Care 167 mg/dl (65-105)
--- NOTE | 2022-07-20 21:00 | PC.NURSE ---
Warm compress given with some relief for right eye discomfort and redness.
[2022-07-20 23:40] VITALS: BP 156/71; PULSE 75; RESP 18; TEMP 36.9; O2SAT 94
--- NOTE | 2022-07-21 01:25 | PC.NURSE ---
Pt called commercial lines underwriter to room, c/o insomnia, states I can't turn my brain off . Snack of milk and finn crackers given, reviewed deep breathing and relaxation techniques, pt states understanding.
[2022-07-21] MEDS: CEPHALEXIN 500 MG CAPSULE PO ×3 (05:18→17:52)
[2022-07-21] MEDS: HYDROcodone/acetaminophen (*CRX) 5-325 MG TABLET 1 TAB PO ×2 (05:18→19:26)
[2022-07-21] MEDS: LEVOTHYROXINE SODIUM 25 MCG TABLET PO (05:18)
[2022-07-21] MEDS: LEVOTHYROXINE SODIUM 100 MCG TABLET PO (05:18)
[2022-07-21 05:56] LABS: Hematocrit 37.7 % (35.0-49.0); Hemoglobin 11.8 g/dL (12.0-15.0); Mean Corpuscular HGB Conc 31.3 g/dL (32.0-36.0); Mean Corpuscular Hemoglobin 30.9 pg (27.0-31.0); Mean Corpuscular Volume 98.7 fL (78.0-102.0); Mean Platelet Volume 9.7 fl (9.2-11.8); Platelet Count Result 301 K/mm3 (150-420); Red Blood Count 3.82 M/mm3 (4.20-5.40); White Blood Count 11.1 K/mm3 (4.8-10.8)
[2022-07-21 06:04] LABS: Anion Gap 8 mmol/L (8-16); Blood Urea Nitrogen 19 mg/dL (7-18); Calcium 8.8 mg/dL (8.5-10.1); Carbon Dioxide 29 mmol/L (21-32); Chloride 101 mmol/L (98-108); Estimated CRCL calculation 107 ml/min; Estimated Glomerular Filt Rate > 60; Glucose 176 mg/dL (70-99); Osmolality Calculated 292 mOsm/kg (285-295); Sodium 138 mmol/L (136-145)
[2022-07-21 07:47] LABS: Glucose Point of Care 142 mg/dl (65-105)
[2022-07-21 07:49] VITALS: BP 118/72; PULSE 74; RESP 18; TEMP 36.6; O2SAT 95
[2022-07-21] MEDS: INSULIN GLARGINE (LANTUS) 1,000 UNITS/10 ML VIAL 70 UNITS SUB-Q (07:59)
[2022-07-21] MEDS: lisinopriL 10 MG TABLET PO (08:00)
[2022-07-21] MEDS: DAPAGLIFLOZIN 5 MG 1 EACH PO (08:00)
[2022-07-21] MEDS: metFORMIN HCL XR 500 MG TAB.SR.24H PO (08:00)
[2022-07-21] MEDS: allopurinoL 100 MG TABLET PO (08:00)
[2022-07-21] MEDS: ESCITALOPRAM OXALATE 10 MG TABLET 20 MG PO (08:00)
[2022-07-21] MEDS: GABAPENTIN 300 MG CAPSULE PO ×3 (08:00→16:22)
[2022-07-21] MEDS: DOCUSATE SODIUM 100 MG CAPSULE PO (08:01)
[2022-07-21] MEDS: polyethylene glycoL 3350 17 GM POWD.PACK PO (08:01)
--- NOTE | 2022-07-21 10:02 | P.PN_ITS ---
Progress Note: A&P Assessment and Plan (1) HTN (hypertension): Code(s): I10 - Essential (primary) hypertension Status: Chronic Assessment and Plan: * Continue home medications * Blood pressure stable continue to monitor (2) Hypothyroidism: Code(s): E03.9 - Hypothyroidism, unspecified Status: Chronic Assessment and Plan: * TSH was elevated, T4 was low at outlying hospital * Patient's levothyroxine increased to 120 MCG at outlying hospital (3) Hyperlipidemia: Code(s): E78.5 - Hyperlipidemia, unspecified Status: Chronic Assessment and Plan: * Continue home medication (4) Depression: Code(s): F32.9 - Major depressive disorder, single episode, unspecified Status: Chronic Assessment and Plan: * Will continue to monitor no signs and symptoms at this time of depression * Continue home medications (5) Type 2 diabetes mellitus: Code(s): E11.9 - Type 2 diabetes mellitus without complications Status: Chronic Assessment and Plan: * Hemoglobin A1c 13.3 * Diabetic diet * Accu-Cheks before meals and at bedtime, sliding scale insulin addressed as needed (6) Nicotine dependence, cigarettes, uncomplicated: Code(s): F17.210 - Nicotine dependence, cigarettes, uncomplicated Status: Chronic Assessment and Plan: * Nicotine patch as indicated * A pack-a-day smoker (7) COPD (chronic obstructive pulmonary disease): Code(s): J44.9 - Chronic obstructive pulmonary disease, unspecified Status: Chronic Assessment and Plan: * Monitor for signs and symptoms of shortness of breath will adjust accordingly currently stable (8) Weakness: Code(s): R53.1 - Weakness Status: Acute Assessment and Plan: * PT and OT * Fall precautions (9) Insomnia: Code(s): G47.00 - Insomnia, unspecified Status: Acute Assessment and Plan: * Trazadone * (10) Acute bacterial conjunctivitis of right eye: Code(s): H10.31 - Unspecified acute conjunctivitis, right eye Status: Acute Assessment and Plan: * ofloxacin eye drops * warm compress as needed * monitor for improvement Subjective Date/time seen: 07/21/22 10:02 Interval history: Patient continues to work w physical therapy and lab has been reviewed nothing at this time need to be adjusted. Patient has erythema and itching with drainage noted from the right eye. Patient is showing some s/s of depression and we will continue to administer antidepressant. Pt states she does not need anything at this time except for something to help her sleep. Exam Narrative: GENERAL:Well-appearing, obese, and in no acute distress. HEAD:Normocephalic, atraumatic. EYES: PERRLA and EOMI.right eye with erythema and drainage noted ENT: Nares clear, no rhinorrhea or epistaxis. Mucous membranes moist. CHEST: No respiratory distress. Equal rise and fall of chest wall HEART: Regular rate and rhythm. Decreased l peripheral pulses. ABDOMEN: Soft, nontender round hypoactive bowel sounds. EXTREMITIES: Decreased due to pain range of motion. 1+ edema. SKIN: Warm, dry, no rash. NEURO: No focal deficits. Alert and oriented x3. Objective Data Vital Signs Vital Signs: Vital Signs - 24 hr 07/20/22 16:00 07/20/22 20:00 07/20/22 23:40 Temperature 97.6 F 98.4 F Pulse Rate 81 81 75 Respiratory Rate 16 16 18 Blood Pressure 135/82
--- NOTE | 2022-07-21 10:02 | WPDPN ---
Progress Note: A&P Assessment and Plan (1) HTN (hypertension): Code(s): I10 - Essential (primary) hypertension Status: Chronic Assessment and Plan: Continue home medications Blood pressure stable continue to monitor (2) Hypothyroidism: Code(s): E03.9 - Hypothyroidism, unspecified Status: Chronic Assessment and Plan: [facility] (3) Hyperlipidemia: Code(s): E78.5 - Hyperlipidemia, unspecified Status: Chronic Assessment and Plan: Continue home medication (4) Depression: Code(s): F32.9 - Major depressive disorder, single episode, unspecified Status: Chronic Assessment and Plan: Will continue to monitor no signs and symptoms at this time of depression Continue home medications (5) Type 2 diabetes mellitus: Code(s): E11.9 - Type 2 diabetes mellitus without complications Status: Chronic Assessment and Plan: Hemoglobin A1c 13.3 Diabetic diet Accu-Cheks before meals and at bedtime, sliding scale insulin addressed as needed (6) Nicotine dependence, cigarettes, uncomplicated: Code(s): F17.210 - Nicotine dependence, cigarettes, uncomplicated Status: Chronic Assessment and Plan: Nicotine patch as indicated A pack-a-day smoker (7) COPD (chronic obstructive pulmonary disease): Code(s): J44.9 - Chronic obstructive pulmonary disease, unspecified Status: Chronic Assessment and Plan: Monitor for signs and symptoms of shortness of breath will adjust accordingly currently stable (8) Weakness: Code(s): R53.1 - Weakness Status: Acute Assessment and Plan: PT and OT Fall precautions (9) Insomnia: Code(s): G47.00 - Insomnia, unspecified Status: Acute Assessment and Plan: Trazadone (10) Acute bacterial conjunctivitis of right eye: Code(s): H10.31 - Unspecified acute conjunctivitis, right eye Status: Acute Assessment and Plan: ofloxacin eye drops warm compress as needed monitor for improvement Subjective Date/time seen: 07/21/22 10:02 Interval history: Patient continues to work w physical therapy and lab has been reviewed nothing at this time need to be adjusted. Patient has erythema and itching with drainage noted from the right eye. Patient is showing some s/s of depression and we will continue to administer antidepressant. Pt states she does not need anything at this time except for something to help her sleep. Exam Narrative: GENERAL:Well-appearing, obese, and in no acute distress. HEAD:Normocephalic, atraumatic. EYES: PERRLA and EOMI.right eye with erythema and drainage noted ENT: Nares clear, no rhinorrhea or epistaxis. Mucous membranes moist. CHEST: No respiratory distress. Equal rise and fall of chest wall HEART: Regular rate and rhythm. Decreased l peripheral pulses. ABDOMEN: Soft, nontender round hypoactive bowel sounds. EXTREMITIES: Decreased due to pain range of motion. 1+ edema. SKIN: Warm, dry, no rash. NEURO: No focal deficits. Alert and oriented x3. Objective Data Vital Signs Vital Signs: Vital Signs - 24 hr 07/20/22 16:00 07/20/22 20:00 07/20/22 23:40 Temperature 97.6 F 98.4 F Pulse Rate 81 81 75 Respiratory Rate 16 16 18 Blood Pressure 135/82 156/71 H Pulse Oximetry 94 94 94 Oxygen Delivery Room Air Room Air Room Air Fraction of Inspired Oxygen 97 07/21/22 07:49 Temperature 98 F Pulse Rate 74 Respiratory Rate 18 Blood Pressure 118/72 Pulse Oximetry 95 Oxygen Delivery Room Air Fraction of Inspired Oxygen Intake/Output Intake/Output: Intake & Output 07/18/22 07/19/22 07/20/22 07/21/22 23:59 23:59 23:59 23:59 Intake Total 1550 1710 1530 720 Output Total 425 350 500 Balance 1125 1360 1030 720 Meds/Results Medications: Active Medications Generi
[2022-07-21 11:32] LABS: Glucose Point of Care 128 mg/dl (65-105)
[2022-07-21 16:00] VITALS: BP 148/87; PULSE 90; RESP 20; TEMP 37.3; O2SAT 93
[2022-07-21 16:23] LABS: Glucose Point of Care 153 mg/dl (65-105)
--- NOTE | 2022-07-21 18:30 | PC.NURSE ---
pt given shower cap on request, no further needs at this time, call light in reach
--- NOTE | 2022-07-21 18:46 | PC.NURSE ---
rosemary pnp aware of need for different eye drop due to we do not carry that one and need for antifungal powder for abd fold.
[2022-07-21] MEDS: traZODone HCL 50 MG TABLET PO (20:49)
[2022-07-21] MEDS: ATORVASTATIN 10 MG TABLET PO (20:49)
[2022-07-21] MEDS: MELATONIN 5 MG TABLET PO (20:50)
[2022-07-21] MEDS: INSULIN GLARGINE (*BKC) 100 UNITS/ML 20 UNITS SUB-Q (20:54)
[2022-07-21 20:59] LABS: Glucose Point of Care 166 mg/dl (65-105)
[2022-07-22] VITALS: BP 111/64; PULSE 67; RESP 18; TEMP 36.5; O2SAT 94
[2022-07-22] MEDS: CEPHALEXIN 500 MG CAPSULE PO ×3 (00:06→12:20)
[2022-07-22] MEDS: LEVOTHYROXINE SODIUM 25 MCG TABLET PO (05:51)
[2022-07-22] MEDS: LEVOTHYROXINE SODIUM 100 MCG TABLET PO (05:51)
[2022-07-22] MEDS: CIPROFLOXACIN HCL 0.3% OP SOLN 2.5 ML BTL 2 DROP EACH EYE (06:20)
[2022-07-22] MEDS: HYDROcodone/acetaminophen (*CRX) 5-325 MG TABLET 1 TAB PO ×2 (06:26→12:25)
[2022-07-22 07:57] LABS: Glucose Point of Care 92 mg/dl (65-105)
[2022-07-22 08:00] VITALS: BP 130/86; PULSE 75; RESP 16; TEMP 36.2; O2SAT 93
[2022-07-22] MEDS: metFORMIN HCL XR 500 MG TAB.SR.24H PO (08:20)
[2022-07-22] MEDS: INSULIN GLARGINE (LANTUS) 1,000 UNITS/10 ML VIAL 70 UNITS SUB-Q (09:29)
[2022-07-22] MEDS: polyethylene glycoL 3350 17 GM POWD.PACK PO (09:31)
[2022-07-22] MEDS: lisinopriL 10 MG TABLET PO (09:32)
[2022-07-22] MEDS: allopurinoL 100 MG TABLET PO (09:32)
[2022-07-22] MEDS: ESCITALOPRAM OXALATE 10 MG TABLET 20 MG PO (09:32)
[2022-07-22] MEDS: GABAPENTIN 300 MG CAPSULE PO ×2 (09:32→12:20)
[2022-07-22] MEDS: DAPAGLIFLOZIN 5 MG 1 EACH PO (09:33)
[2022-07-22] MEDS: DOCUSATE SODIUM 100 MG CAPSULE PO (09:33)
--- NOTE | 2022-07-22 11:15 | PC.NURSE ---
Patient wanting to be discharged today related to home issues. RN MATERNAL CHILD Margo contacted.
--- NOTE | 2022-07-22 12:06 | P.PNCROSS_ITS ---
Event Note Event Note Event Note: Patient is in distraught and upset as she has money missing from her account. P atient informs me that she is going to leave and she is not wanting too stay as she has to make sure that her home is ok . I did explain to patient if she leaves at this time it would be against medical advice but we would still set up home health for her. Patient is still wanting to go.
--- NOTE | 2022-07-22 12:14 | PM.DS ---
DS: Admitting Diagnosis Discharge Date 07/22/2022 Admitting Diagnosis Rehab, Weakness, Diabetes Claudication to lower extremities DS: Discharge Diagnosis Discharge Diagnosis (1) HTN (hypertension): Code(s): I10 - Essential (primary) hypertension Status: Chronic Assessment and Plan: Make sure you take your blood pressure medication as indicated Stable (2) Hypothyroidism: Code(s): E03.9 - Hypothyroidism, unspecified Status: Chronic Assessment and Plan: Levothyroxine take since directed Follow-up with your primary care provider to monitor your TSH and T4 (3) Hyperlipidemia: Code(s): E78.5 - Hyperlipidemia, unspecified Status: Chronic Assessment and Plan: Make sure you monitor and take your medication as directed (4) Depression: Code(s): F32.9 - Major depressive disorder, single episode, unspecified Status: Chronic Assessment and Plan: Take medication as directed Anxiety noted (5) Type 2 diabetes mellitus: Code(s): E11.9 - Type 2 diabetes mellitus without complications Status: Chronic Assessment and Plan: Monitor your blood sugar before meals and at bedtime Take medication as directed (6) COPD (chronic obstructive pulmonary disease): Code(s): J44.9 - Chronic obstructive pulmonary disease, unspecified Status: Chronic Assessment and Plan: Stable take medication as directed or indicated or call your PCP (7) Weakness: Code(s): R53.1 - Weakness Status: Acute Assessment and Plan: Home health ordered continue with PT OT and nursing for dressing changes and strengthening (8) Acute bacterial conjunctivitis of right eye: Code(s): H10.31 - Unspecified acute conjunctivitis, right eye Status: Acute Assessment and Plan: Take eyedrops as directed Do not touch the tip of the eyedrops well at the tip of the eyedrops to try Make sure you wash your hands prior to touching your eye Warm washcloths may help make sure the washcloth is clean DS: Summary Hospital Course Reason for hospitalization: Lower extremity claudation, Weakness, rehab, diabetes Hospital Course: This is a 56 year old female that was admitted to Swing bed for Rehab with a past medical history of uncontrolled diabetes, tobacco use, obesity, hypothyroidism, hyperlipidemia, gout, hypertension, and cerebral palsy. Patient has had a right lower extremity DIVE MASTER-PA bypass. Patient has daily dressing changes on her leg. Patient has continued to work with therapy but ultimately had family issue and financial issue and had to leave against medical advise. While here patient blood sugars were able to be maintained for the most part below 200. Patient did have a acute conjunctivitis as she was always touching and rubbing her eye that became red and draining yellow secretion and swollen. Mrs Duron was very anxious at time and informed she was not able to stay. She was a active participate in therapy and when reviewing notes look like to required 1 moderate assist with some activities. Home health has been set up with [facility] and she was informed to keep her appointment already set up.. She agreed to allow home health to come in. Patient has showed no s/s of infection she is eating and drinking without difficulties. She denies any heart palpation, CP, diarrhea, constipation or shortness of breath. Patient signed AMA and will follow up with her PCP bill. infored patient to follow up with her Surgeon BILL patient's vitals are 130/86, pulse is 75, respirations 16, temp 97 1, 93% on room air. Patient's labs are potassium is 4.0, sodium is 138, BUN is 19, creatinine 0.57, glucose was 176, WBCs was 11.1, RBCs was 3.82, hemoglobin was 11.8 and platelets were 301. Time Spent with Patient Time attestation: Total time spent providing and/or coordinating discharge services: Exam Narrative: GENERAL:Well-appearing, obese, and in
[2022-07-22 12:25] LABS: Glucose Point of Care 156 mg/dl (65-105)
--- NOTE | 2022-07-22 14:28 | PC.NURSE ---
Pt discharged AMA. Margo TAX MAP TECHNICIAN had a long discussion with the pt regarding her discharging today. Margo felt pt was not ready however the pt felt she needed to be home to handle financil matters. Pt given discharge instructions regarding pain medication, eye drops and current medications. RN reviewed fall precautions with pt. S&S of infection and follow up care were reviewed. Pt verbalized understanding of all instructions. RN transported the pt to the family truck via and assisted her into the truck.
--- NOTE | 2022-07-23 11:25 | PCCCNOTE ---
Rec'd call from [facility] that they was unable to reach pt due to phone number listed not being in service and her emergency contact number not in service either. This director of home care hospice attempted to call pt and emergency contact as well with same messages of phones being out of service. Sent Emilee a note telling her to call [facility] in order to start services. Note mailed on 07/23/2022.
--- NOTE | 2022-07-23 11:32 | PCCCNOTE ---
Spoke with Dr. Markham's office [phone] for contact phone number for Emilee. Her cell phone number is [phone], which I called and left message for her to call [facility]. Male neighbor [phone] which works best for Dr. Markham's office and male friend David [phone].
--- NOTE | 2022-07-24 09:59 | PC.NURSE ---
Follow up call attempted, Phone not answering at this time.
--- NOTE | 2022-07-25 13:10 | PC.NURSE ---
discharge call back attempted, today message reads phone number no longer in service/disconnected
== END 2022-07-22 14:00 | disposition left against medical advice (07) | DRG 950 ==
PROVIDERS: Nurse Practitioner Family; Admitting Provider Internal Medicine; PCP Specialist; Visit Provider Internal Medicine
DX: Z48.812 Encounter for surgical aftercare following surgery on the circulatory system (principal); E11.51 Type 2 diabetes mellitus with diabetic peripheral angiopathy without gangrene; I73.9 Peripheral vascular disease, unspecified; E11.65 Type 2 diabetes mellitus with hyperglycemia; E03.9 Hypothyroidism, unspecified; E78.5 Hyperlipidemia, unspecified; R53.1 Weakness; I10 Essential (primary) hypertension; E66.9 Obesity, unspecified; J44.9 Chronic obstructive pulmonary disease, unspecified; H10.31 Unspecified acute conjunctivitis, right eye; G80.9 Cerebral palsy, unspecified; F32.A Depression, unspecified; F17.210 Nicotine dependence, cigarettes, uncomplicated; Z79.4 Long term (current) use of insulin
CPT/HCPCS: 36415; 80048; 82948; 85027; 97110; 97162; 97165; 97530; 97535; A9270; J1815

== ENCOUNTER 2022-07-23 23:39 | Emergency (ER) | payer MEDICARE, MEDICAID, SELFPAY ==
--- NOTE | 2022-07-23 23:40 | ED.EXTPRO ---
HPI - Extremity Problem General Chief complaint: Unspecified Stated complaint: INFECTION Time Seen by Provider: 07/23/22 23:40 Source: patient, EMS and RN notes reviewed Mode of arrival: EMS Limitations: no limitations History of Present Illness HPI Narrative: patient states that her girlfriend looked at her wound in her abdomen and on her right leg and thought they were infected. So she called an ambulance. She left AMA yesterday due to family and financial issues. She had been here for a swing bed stay and was doing very well without any new infections or problems with her wounds in that time. She had been here for 5 days. She has a sutured wound on her abdomen and a stapled wound on her right anterior suazo. These are from her recent arterial bypass. MD Complaint: extremity pain Onset (ago): day(s) (1) Location: right, lower extremity and other ( And abdomen) Quality: dull Radiation: none Relieving factors: nothing Exacerbating factors: palpation Associated symptoms: denies other symptoms Related Data Home Medications Medication Instructions Recorded Confirmed acetaminophen 650 mg 1,300 mg PO Q8H PRN Pain, Mild 07/17/22 07/17/22 tablet,extended release (Tylenol 8 Hour) albuterol sulfate 90 mcg/actuation 2 puff inhalation Q6H PRN 07/17/22 07/17/22 aerosol inhaler shortness of breath or wheezing allopurinol 100 mg tablet 100 mg PO DAILY 07/17/22 07/17/22 atorvastatin 10 mg tablet 10 mg PO HS 07/17/22 07/17/22 dapagliflozin 5 mg tablet (Farxiga) 5 mg PO DAILY 07/17/22 07/17/22 docusate sodium 100 mg capsule 100 mg PO DAILY PRN Constipation 07/17/22 07/17/22 escitalopram oxalate 20 mg tablet 20 mg PO DAILY 07/17/22 07/17/22 (Lexapro) gabapentin 300 mg capsule 300 mg PO TID 07/17/22 07/17/22 hydrocodone 5 mg-acetaminophen 325 1 tablet PO Q6H PRN Pain, Moderate 07/17/22 07/17/22 mg tablet insulin glargine 100 unit/mL 20 unit subcut HS 07/17/22 07/17/22 subcutaneous solution (Lantus U-100 Insulin) levothyroxine 125 mcg tablet 125 mcg PO DAILY 07/17/22 07/17/22 lisinopril 5 mg tablet 10 mg PO DAILY 07/17/22 07/17/22 metformin 500 mg tablet,extended 500 mg PO DAILY 07/17/22 07/17/22 release 24 hr oxybutynin chloride 5 mg tablet 5 mg PO DAILY 07/17/22 07/17/22 Allergies Allergy/AdvReac Type Severity Reaction Status Date / Time adhesive tape Allergy Itching Verified 07/23/22 23:54 Review of Systems Review of Systems: All systems reviewed & are unremarkable except as noted in HPI and below PMFSH Past Medical History Medical History (Updated 07/23/22 @ 23:54 by Cem Bowens MD) BMI 33.0-33.9,adult COPD (chronic obstructive pulmonary disease) Depression HTN (hypertension) Hyperlipidemia Hypothyroidism Low back pain Nicotine dependence, cigarettes, uncomplicated Type 2 diabetes mellitus Surgical History Surgical History Hx of thyroidectomy 2001 Hx of tonsillectomy Age 16 Family History Family History Father Diabetes mellitus Heart disease Social History Social History Smoking packs per day: 0.5 Smoking cigarettes per day: 10.0 Years smoked: 40 Smoking pack-years: 20.00 Smoking status: Current every day smoker Second hand tobacco smoke exposure: Yes Alcohol intake: former Substance use: former Substance use type: does not use Gender identity (if verbalized by the patient): Female Spiritual care concerns: No Exam Const: General: healthy appearing, no acute distress and alert Nutritional Appearance: obese morbidly obese Orientation/consciousness: patient oriented x3 Limitations: no limitations HENMT: Head: normal to inspection Ears: external ears normal General nose exam: Normal external nose present Face and sinus: normal facial exam Eyes: Conjunctivae: conjunctivae normal Pupils: Equ
[2022-07-23 23:54] VITALS: BP 124/77; PULSE 84; RESP 19; TEMP 36.8; O2SAT 94
[2022-07-24 00:15] LABS: Anion Gap 12 mmol/L (8-16); Blood Urea Nitrogen 32 mg/dL (7-18); Calcium 9.9 mg/dL (8.5-10.1); Carbon Dioxide 25 mmol/L (21-32); Chloride 101 mmol/L (98-108); Estimated CRCL calculation 59 ml/min; Estimated Glomerular Filt Rate 56; Glucose 308 mg/dL (70-99); Osmolality Calculated 304 mOsm/kg (285-295); Sodium 138 mmol/L (136-145)
[2022-07-24 00:17] LABS: Hematocrit 40.4 % (35.0-49.0); Hemoglobin 12.7 g/dL (12.0-15.0); Mean Corpuscular HGB Conc 31.4 g/dL (32.0-36.0); Mean Corpuscular Hemoglobin 31.1 pg (27.0-31.0); Mean Corpuscular Volume 98.8 fL (78.0-102.0); Mean Platelet Volume 9.8 fl (9.2-11.8); Platelet Count Result 305 K/mm3 (150-420); Red Blood Count 4.09 M/mm3 (4.20-5.40); Red Cell Distribution Width 13.8 % (11.6-14.4)
[2022-07-24 00:54] VITALS: BP 110/73; PULSE 80; RESP 20; TEMP 36.5; O2SAT 93
== END 2022-07-24 01:05 | disposition home or self-care (01) ==
PROVIDERS: Emergency Provider Emergency Medicine; PCP Specialist
DX: B37.9 Candidiasis, unspecified (principal); J44.9 Chronic obstructive pulmonary disease, unspecified; I10 Essential (primary) hypertension; E78.5 Hyperlipidemia, unspecified; E03.9 Hypothyroidism, unspecified; E11.9 Type 2 diabetes mellitus without complications; F17.200 Nicotine dependence, unspecified, uncomplicated
CPT/HCPCS: 36415; 80048; 85027; 99283

== ENCOUNTER 2022-08-06 14:03 | Inpatient (IN) | payer MEDICARE, MEDICAID, SELFPAY ==
--- NOTE | 2022-08-06 14:10 | ADMGEN ---
This patient, Paula Duron, was admitted to 2nd Floor Room 208-1. Patient/family oriented to hospital policies and general routines including ID bracelet, bed and alarms, visiting hours, pain management, procedures, bathroom and other care routines, personal items, smoking policy, room service/diet, and visiting hours. Information on how to activate the Rapid Response Team has been discussed. Patient/Family are encouraged to report perceived risks to care and to ask questions if they do not understand what they are told or what they should do.
[2022-08-06 14:11] VITALS: BP 140/68; PULSE 73; RESP 17; TEMP 36.8; O2SAT 96
[2022-08-06 14:25] VITALS: BMI 36.7
[2022-08-06 16:53] LABS: Glucose Point of Care 169 mg/dl (65-105)
[2022-08-06] MEDS: SACCHAROMYCES BOULARDII 250 MG CAPSULE PO (17:00)
[2022-08-06] MEDS: metFORMIN HCL 500 MG TABLET 1000 MG PO (17:00)
[2022-08-06] MEDS: GABAPENTIN 300 MG CAPSULE PO (17:00)
--- NOTE | 2022-08-06 18:23 | PC.NURSE ---
Charting completed by Piper Dunham, student nurse under this nurses supervision. All charting has been reviewed and agreed with for this shift.
[2022-08-06] MEDS: HYDROcodone/acetaminophen (*CRX) 5-325 MG TABLET 1 TAB PO (19:41)
[2022-08-06] MEDS: DOXYCYCLINE HYCLATE 100 MG TABLET PO (21:22)
[2022-08-06] MEDS: ATORVASTATIN 10 MG TABLET PO (21:22)
[2022-08-06] MEDS: AMOXICILLIN/CLAVULANATE K 875-125 MG TAB 1 TABLET PO (21:22)
[2022-08-06] MEDS: TOLNAFTATE 1% POWDER 45 GM BTL 1 APPLIC TOPICAL (21:23)
[2022-08-06 21:45] LABS: Glucose Point of Care 237 mg/dl (65-105)
[2022-08-07] VITALS: BP 129/59; PULSE 66; RESP 20; TEMP 36.2; O2SAT 95
[2022-08-07] MEDS: LEVOTHYROXINE SODIUM 25 MCG TABLET PO (05:37)
[2022-08-07] MEDS: LEVOTHYROXINE SODIUM 100 MCG TABLET PO (05:37)
[2022-08-07 07:53] VITALS: BP 117/65; PULSE 62; RESP 17; TEMP 36.4; O2SAT 95
[2022-08-07] MEDS: polyethylene glycoL 3350 17 GM POWD.PACK PO (08:58)
[2022-08-07] MEDS: ASPIRIN 81 MG CHEWABLE TABLET PO (08:58)
[2022-08-07] MEDS: AMOXICILLIN/CLAVULANATE K 875-125 MG TAB 1 TABLET PO ×2 (08:59→21:12)
[2022-08-07] MEDS: metFORMIN HCL 500 MG TABLET 1000 MG PO ×2 (08:59→17:28)
[2022-08-07] MEDS: DOXYCYCLINE HYCLATE 100 MG TABLET PO ×2 (08:59→21:12)
[2022-08-07] MEDS: TOLNAFTATE 1% POWDER 45 GM BTL 1 APPLIC TOPICAL ×2 (08:59→21:12)
[2022-08-07] MEDS: INSULIN GLARGINE (*BKC) 100 UNITS/ML 50 UNITS SUB-Q (08:59)
[2022-08-07] MEDS: SACCHAROMYCES BOULARDII 250 MG CAPSULE PO ×2 (08:59→17:28)
[2022-08-07] MEDS: allopurinoL 100 MG TABLET PO (08:59)
[2022-08-07] MEDS: DOCUSATE SODIUM 100 MG CAPSULE PO (08:59)
[2022-08-07] MEDS: GABAPENTIN 300 MG CAPSULE PO ×3 (08:59→17:28)
[2022-08-07] MEDS: EMPAGLIFLOZIN 10 MG TABLET PO (08:59)
[2022-08-07] MEDS: ESCITALOPRAM OXALATE 10 MG TABLET 20 MG PO (08:59)
[2022-08-07] MEDS: FLUCONAZOLE 100 MG TABLET 200 MG PO (08:59)
[2022-08-07] MEDS: lisinopriL 10 MG TABLET PO (08:59)
--- NOTE | 2022-08-07 11:09 | PM.IMHP ---
H&P: HPI History of Present Illness Date/Time: 08/07/22 11:09 Chief Complaint: Rehab weakness Narrative: This is a 56-year-old female who presented to outside hospital due to surgical site incision infection due to surgical site incision infection. Patient has a past medical history of COPD, depression, hypertension, hyperlipidemia, hypothyroidism, chronic lower back pain, nicotine dependence, bilateral lower extremity calcification, left heel ulcer and B SFA occlusive disease and type 2 diabetes. Patient is status post right BILINGUAL LOAN PROCESSOR/PA bypass on 07/11/2022. Patient went to her vascular surgeon who looked at her incisional sites and recommended that she go to the ED for treatment,. Vital signs at outside hospital 132/70, 57, 17, 98.6, 100% on room air WBCs 9.2, hemoglobin 14.1, platelets 357, sodium 139, potassium 4.3, BUN 27, creatinine 0.50, glucose 79. PMFSH Past Medical History Medical History (Updated 08/07/22 @ 11:24 by NAIMA Law-C) BMI 33.0-33.9,adult COPD (chronic obstructive pulmonary disease) Depression HTN (hypertension) Hyperlipidemia Hypothyroidism Low back pain Nicotine dependence, cigarettes, uncomplicated Type 2 diabetes mellitus Surgical History Surgical History Hx of thyroidectomy 2002 Hx of tonsillectomy Age 16 Family History Family History Father Diabetes mellitus Heart disease Social History Social History Smoking packs per day: 0.5 Smoking cigarettes per day: 10.0 Years smoked: 40 Smoking pack-years: 20.00 Smoking status: Former smoker Second hand tobacco smoke exposure: Yes Alcohol intake: unknown Substance use: unknown Substance use type: does not use Gender identity (if verbalized by the patient): Female Spiritual care concerns: No Meds Home Medications and Allergies Home Medications Medication Instructions Recorded Confirmed Type dulaglutide 0.75 mg/0.5 mL 0.75 mg (0.5 mL) subcut WEEKLY #2 07/01/22 08/06/22 Rx subcutaneous pen injector mL (Trulicity) ergocalciferol (vitamin D2) 1,250 1,250 mcg PO WEEKLY #10 caps 07/01/22 08/06/22 Rx mcg (50,000 unit) capsule albuterol sulfate 90 mcg/actuation 2 puff inhalation Q6H PRN 07/17/22 08/06/22 History aerosol inhaler shortness of breath or wheezing allopurinol 100 mg tablet 100 mg PO DAILY 07/17/22 08/06/22 History atorvastatin 10 mg tablet 10 mg PO HS 07/17/22 08/06/22 History dapagliflozin 5 mg tablet (Farxiga) 5 mg PO DAILY 07/17/22 08/06/22 History docusate sodium 100 mg capsule 100 mg PO DAILY 07/17/22 08/06/22 History escitalopram oxalate 20 mg tablet 20 mg PO DAILY 07/17/22 08/06/22 History (Lexapro) gabapentin 300 mg capsule 300 mg PO TID 07/17/22 08/06/22 History hydrocodone 5 mg-acetaminophen 325 1 tablet PO Q6H PRN Pain, Moderate 07/17/22 08/06/22 History mg tablet levothyroxine 125 mcg tablet 125 mcg PO DAILY 07/17/22 08/06/22 History lisinopril 5 mg tablet 10 mg PO DAILY 07/17/22 08/06/22 History metformin 500 mg tablet,extended 1,000 mg PO BIDWMEAL 07/17/22 08/06/22 History release 24 hr oxybutynin chloride 5 mg tablet 5 mg PO DAILY 07/17/22 08/06/22 History amoxicillin 875 mg-potassium 1 tablet PO Q12H 08/06/22 08/06/22 History clavulanate 125 mg tablet aspirin 81 mg chewable tablet 81 mg PO DAILY 08/06/22 08/06/22 History doxycycline hyclate 100 mg capsule 100 mg PO Q12H 08/06/22 08/06/22 History fluconazole 200 mg tablet 200 mg PO DAILY 08/06/22 08/06/22 History insulin degludec 100 unit/mL (3 50 unit subcut DAILY 08/06/22 08/06/22 History mL) subcutaneous pen (Tresiba FlexTouch U-100 insulin) polyethylene glycol 3350 17 gram 17 g PO DAILY 08/06/22 08/06/22 History oral powder packet Allergies Allergy/AdvReac Type Severity Reaction Status Date / Time adhesive tape Allergy Itchin
[2022-08-07 11:35] LABS: Glucose Point of Care 166 mg/dl (65-105)
[2022-08-07 11:35] LABS: Glucose Point of Care 203 mg/dl (65-105)
[2022-08-07 16:00] VITALS: BP 121/60; PULSE 67; RESP 16; TEMP 36.6; O2SAT 94
[2022-08-07 16:48] LABS: Glucose Point of Care 129 mg/dl (65-105)
[2022-08-07] MEDS: ATORVASTATIN 10 MG TABLET PO (21:12)
[2022-08-07] MEDS: BUDESONIDE/FORMOTEROL 80/4.5 MCG 6.9 GM INHALER (*SP) 2 PUFF INHALATION (21:12)
[2022-08-07 21:22] LABS: Glucose Point of Care 148 mg/dl (65-105)
[2022-08-08] VITALS: BP 100/57; PULSE 66; RESP 18; TEMP 36.2; O2SAT 95
[2022-08-08 05:13] LABS: Basophils Absolute Auto 0.11 K/mm3 (0.00-0.10); Eosinophils Absolute Auto 0.42 K/mm3 (0.02-0.50); Eosinophils Percent Auto 3.6 % (1.0-6.0); Hematocrit 43.1 % (35.0-49.0); Hemoglobin 13.3 g/dL (12.0-15.0); Immature Granulocyte Absolute 0.08 K/mm3 (0.00-0.00); Immature Granulocyte Percent A 0.7 % (0.0-0.0); Lymphocytes Absolute Auto 3.83 K/mm3 (1.10-4.50); Lymphocytes Percent Auto 33.1 % (18.0-42.0); Mean Corpuscular HGB Conc 30.9 g/dL (32.0-36.0); Mean Corpuscular Hemoglobin 30.2 pg (27.0-31.0); Mean Corpuscular Volume 97.7 fL (78.0-102.0); Monocytes Absolute Auto 0.86 K/mm3 (0.10-0.90); Monocytes Percent Auto 7.4 % (2.0-11.0); Neutrophils Absolute Auto 6.3 K/mm3 (1.7-7.2); Neutrophils Percent Auto 54.2 % (50.0-70.0); Platelet Count Result 328 K/mm3 (150-420); Red Blood Count 4.41 M/mm3 (4.20-5.40); Red Cell Distribution Width 13.7 % (11.6-14.4); White Blood Count 11.6 K/mm3 (4.8-10.8)
[2022-08-08 05:23] LABS: Hemoglobin A1C 9.2 % (<5.7)
[2022-08-08 05:29] LABS: Alanine Aminotransferase 16 U/L (14-59); Albumin Level 3.4 g/dL (3.4-5.0); Alkaline Phosphatase 65 U/L (46-116); Anion Gap 6 mmol/L (8-16); Aspartate Amino Transferase 12 U/L (15-37); Bilirubin,Total 0.4 mg/dL (0.00-1.00); Blood Urea Nitrogen 26 mg/dL (7-18); Calcium 9.5 mg/dL (8.5-10.1); Carbon Dioxide 30 mmol/L (21-32); Chloride 101 mmol/L (98-108); Estimated CRCL calculation 94 ml/min; Estimated Glomerular Filt Rate > 60; Glucose 148 mg/dL (70-99); Magnesium 1.6 mg/dL (1.8-2.4); Osmolality Calculated 291 mOsm/kg (285-295); Potassium 4.4 mmol/L (3.5-5.1); Sodium 137 mmol/L (136-145); Total Protein 7.3 g/dL (6.4-8.2)
[2022-08-08] MEDS: LEVOTHYROXINE SODIUM 100 MCG TABLET PO (06:01)
[2022-08-08] MEDS: LEVOTHYROXINE SODIUM 25 MCG TABLET PO (06:01)
[2022-08-08 07:45] LABS: Glucose Point of Care 135 mg/dl (65-105)
[2022-08-08 08:00] VITALS: BP 99/54; PULSE 64; RESP 16; TEMP 36.5; O2SAT 98
[2022-08-08] MEDS: polyethylene glycoL 3350 17 GM POWD.PACK PO (08:14)
[2022-08-08] MEDS: BUDESONIDE/FORMOTEROL 80/4.5 MCG 6.9 GM INHALER (*SP) 2 PUFF INHALATION ×2 (08:15→20:36)
[2022-08-08] MEDS: DOXYCYCLINE HYCLATE 100 MG TABLET PO ×2 (08:16→20:34)
[2022-08-08] MEDS: ESCITALOPRAM OXALATE 10 MG TABLET 20 MG PO (08:16)
[2022-08-08] MEDS: metFORMIN HCL 500 MG TABLET 1000 MG PO ×2 (08:17→16:59)
[2022-08-08] MEDS: DOCUSATE SODIUM 100 MG CAPSULE PO (08:17)
[2022-08-08] MEDS: AMOXICILLIN/CLAVULANATE K 875-125 MG TAB 1 TABLET PO ×2 (08:17→20:34)
[2022-08-08] MEDS: FLUCONAZOLE 100 MG TABLET 200 MG PO (08:18)
[2022-08-08] MEDS: SACCHAROMYCES BOULARDII 250 MG CAPSULE PO ×2 (08:18→16:59)
[2022-08-08] MEDS: lisinopriL 10 MG TABLET PO (08:18)
[2022-08-08] MEDS: EMPAGLIFLOZIN 10 MG TABLET PO (08:19)
[2022-08-08] MEDS: allopurinoL 100 MG TABLET PO (08:19)
[2022-08-08] MEDS: GABAPENTIN 300 MG CAPSULE PO ×3 (08:19→17:00)
[2022-08-08] MEDS: ASPIRIN 81 MG CHEWABLE TABLET PO (08:20)
[2022-08-08] MEDS: TOLNAFTATE 1% POWDER 45 GM BTL 1 APPLIC TOPICAL ×2 (08:20→20:36)
[2022-08-08] MEDS: INSULIN GLARGINE (*BKC) 100 UNITS/ML 50 UNITS SUB-Q (08:21)
--- NOTE | 2022-08-08 10:09 | PC.NURSE ---
Patient had shower and complete dressing changes to post surgical wounds on R groin and thigh
[2022-08-08 12:08] LABS: Glucose Point of Care 227 mg/dl (65-105)
[2022-08-08 15:36] VITALS: BP 102/56; PULSE 60; RESP 18; TEMP 36.3; O2SAT 97
[2022-08-08 17:04] LABS: Glucose Point of Care 155 mg/dl (65-105)
[2022-08-08] MEDS: ATORVASTATIN 10 MG TABLET PO (20:34)
[2022-08-08] MEDS: HYDROcodone/acetaminophen (*CRX) 5-325 MG TABLET 1 TAB PO (20:35)
[2022-08-08 20:45] LABS: Glucose Point of Care 449 mg/dl (65-105)
--- NOTE | 2022-08-08 20:50 | PC.NURSE ---
Flavio Fernandez, Hospitalist, notified that patient's blood sugar is 449 at this time. New order for Lispro 10 units once.
[2022-08-08] MEDS: traZODone HCL 50 MG TABLET PO (21:10)
[2022-08-08 23:55] VITALS: BP 97/51; PULSE 70; RESP 20; TEMP 36.1; O2SAT 91
[2022-08-09] MEDS: LEVOTHYROXINE SODIUM 25 MCG TABLET PO (05:51)
[2022-08-09] MEDS: LEVOTHYROXINE SODIUM 100 MCG TABLET PO (05:51)
[2022-08-09 07:33] LABS: Glucose Point of Care 125 mg/dl (65-105)
[2022-08-09 07:34] VITALS: BP 100/56; PULSE 60; RESP 18; TEMP 36.6; O2SAT 96
[2022-08-09] MEDS: metFORMIN HCL 500 MG TABLET 1000 MG PO ×2 (08:26→17:36)
[2022-08-09] MEDS: EMPAGLIFLOZIN 10 MG TABLET PO (08:49)
[2022-08-09] MEDS: BUDESONIDE/FORMOTEROL 80/4.5 MCG 6.9 GM INHALER (*SP) 2 PUFF INHALATION ×2 (08:49→20:48)
[2022-08-09] MEDS: polyethylene glycoL 3350 17 GM POWD.PACK PO (08:49)
[2022-08-09] MEDS: SACCHAROMYCES BOULARDII 250 MG CAPSULE PO ×2 (08:50→17:36)
[2022-08-09] MEDS: ESCITALOPRAM OXALATE 10 MG TABLET 20 MG PO (08:50)
[2022-08-09] MEDS: ASPIRIN 81 MG CHEWABLE TABLET PO (08:50)
[2022-08-09] MEDS: AMOXICILLIN/CLAVULANATE K 875-125 MG TAB 1 TABLET PO ×2 (08:50→20:48)
[2022-08-09] MEDS: GABAPENTIN 300 MG CAPSULE PO ×3 (08:50→17:36)
[2022-08-09] MEDS: FLUCONAZOLE 100 MG TABLET 200 MG PO (08:50)
[2022-08-09] MEDS: DOCUSATE SODIUM 100 MG CAPSULE PO (08:50)
[2022-08-09] MEDS: DOXYCYCLINE HYCLATE 100 MG TABLET PO ×2 (08:51→20:48)
[2022-08-09] MEDS: allopurinoL 100 MG TABLET PO (08:52)
[2022-08-09] MEDS: lisinopriL 10 MG TABLET PO (08:52)
[2022-08-09] MEDS: TOLNAFTATE 1% POWDER 45 GM BTL 1 APPLIC TOPICAL ×2 (08:53→20:53)
[2022-08-09] MEDS: INSULIN GLARGINE (*BKC) 100 UNITS/ML 50 UNITS SUB-Q (09:03)
[2022-08-09 11:55] LABS: Glucose Point of Care 196 mg/dl (65-105)
[2022-08-09] MEDS: ONDANSETRON HCL ODT 4 MG TABLET PO (15:58)
[2022-08-09 16:00] VITALS: BP 129/92; PULSE 88; RESP 18; TEMP 36.7; O2SAT 96
--- NOTE | 2022-08-09 16:14 | PC.NURSE ---
Patient c/o heartburn and nausea. Administered Zofran. Will continue to monitor.
[2022-08-09 16:44] LABS: Glucose Point of Care 156 mg/dl (65-105)
--- NOTE | 2022-08-09 17:09 | PC.NURSE ---
Patient had emesis x1 at 1630. Afebrile. T 98.0, P 88 , R 18, BP129/92, SPO2 96% on room air. Patient states that she believes it was the acid reflux, and feels somewhat better at this time. Patient attempting to eat, but commercial lines underwriter encouraged her to take it slow.
--- NOTE | 2022-08-09 19:13 | PC.NURSE ---
Pt ambulated from bed to bathroom via walker, gait belt, and standby assist to void then returned back to bed. Pt stated she no longer had nausea and HOB was lowered per pt request. Call light within reach and bed in lowest position for pt safety.
[2022-08-09] MEDS: HYDROcodone/acetaminophen (*CRX) 5-325 MG TABLET 1 TAB PO (20:47)
[2022-08-09] MEDS: ATORVASTATIN 10 MG TABLET PO (20:48)
[2022-08-09] MEDS: traZODone HCL 50 MG TABLET PO (20:52)
[2022-08-09 21:03] LABS: Glucose Point of Care 161 mg/dl (65-105)
[2022-08-09 23:16] VITALS: BP 105/59; PULSE 67; RESP 17; TEMP 36.6; O2SAT 94
[2022-08-10] MEDS: LEVOTHYROXINE SODIUM 25 MCG TABLET PO (06:28)
[2022-08-10] MEDS: LEVOTHYROXINE SODIUM 100 MCG TABLET PO (06:28)
[2022-08-10 08:00] VITALS: BP 115/62; PULSE 70; RESP 18; TEMP 36.4; O2SAT 97
[2022-08-10] MEDS: metFORMIN HCL 500 MG TABLET 1000 MG PO ×2 (08:00→16:50)
[2022-08-10] MEDS: polyethylene glycoL 3350 17 GM POWD.PACK PO (09:35)
[2022-08-10] MEDS: ASPIRIN 81 MG CHEWABLE TABLET PO (09:35)
[2022-08-10] MEDS: AMOXICILLIN/CLAVULANATE K 875-125 MG TAB 1 TABLET PO ×2 (09:36→21:02)
[2022-08-10] MEDS: FLUCONAZOLE 100 MG TABLET 200 MG PO (09:36)
[2022-08-10] MEDS: lisinopriL 10 MG TABLET PO (09:37)
[2022-08-10] MEDS: allopurinoL 100 MG TABLET PO (09:37)
[2022-08-10] MEDS: ESCITALOPRAM OXALATE 10 MG TABLET 20 MG PO (09:37)
[2022-08-10] MEDS: SACCHAROMYCES BOULARDII 250 MG CAPSULE PO ×2 (09:37→16:51)
[2022-08-10] MEDS: DOXYCYCLINE HYCLATE 100 MG TABLET PO ×2 (09:37→21:01)
[2022-08-10] MEDS: GABAPENTIN 300 MG CAPSULE PO ×3 (09:37→16:51)
[2022-08-10] MEDS: DOCUSATE SODIUM 100 MG CAPSULE PO (09:38)
[2022-08-10] MEDS: EMPAGLIFLOZIN 10 MG TABLET PO (09:38)
[2022-08-10] MEDS: TOLNAFTATE 1% POWDER 45 GM BTL 1 APPLIC TOPICAL ×2 (09:38→21:03)
[2022-08-10 09:40] LABS: Glucose Point of Care 214 mg/dl (65-105)
[2022-08-10] MEDS: BUDESONIDE/FORMOTEROL 80/4.5 MCG 6.9 GM INHALER (*SP) 2 PUFF INHALATION ×2 (09:45→21:03)
[2022-08-10] MEDS: INSULIN GLARGINE (*BKC) 100 UNITS/ML 50 UNITS SUB-Q (09:45)
[2022-08-10 12:00] LABS: Glucose Point of Care 197 mg/dl (65-105)
[2022-08-10] MEDS: CALCIUM CARBONATE (TUMS) 500 MG (200 MG ELEMENTAL) PO ×2 (12:42→21:00)
[2022-08-10] MEDS: HYDROcodone/acetaminophen (*CRX) 5-325 MG TABLET 1 TAB PO ×2 (13:15→21:01)
[2022-08-10 16:30] VITALS: BP 105/52; PULSE 73; RESP 18; TEMP 36.4; O2SAT 94
[2022-08-10 17:03] LABS: Glucose Point of Care 161 mg/dl (65-105)
[2022-08-10] MEDS: traZODone HCL 50 MG TABLET PO (20:59)
[2022-08-10] MEDS: ATORVASTATIN 10 MG TABLET PO (21:01)
[2022-08-10 21:12] LABS: Glucose Point of Care 147 mg/dl (65-105)
[2022-08-10 23:07] VITALS: BP 108/55; PULSE 83; RESP 16; TEMP 36.6; O2SAT 94
[2022-08-11] MEDS: LEVOTHYROXINE SODIUM 100 MCG TABLET PO (06:42)
[2022-08-11] MEDS: LEVOTHYROXINE SODIUM 25 MCG TABLET PO (06:42)
[2022-08-11 07:57] LABS: Glucose Point of Care 119 mg/dl (65-105)
[2022-08-11 07:58] VITALS: BP 95/54; PULSE 59; RESP 14; TEMP 36.2; O2SAT 96
[2022-08-11] MEDS: metFORMIN HCL 500 MG TABLET 1000 MG PO ×2 (08:14→17:23)
[2022-08-11] MEDS: AMOXICILLIN/CLAVULANATE K 875-125 MG TAB 1 TABLET PO ×2 (09:14→20:36)
[2022-08-11] MEDS: polyethylene glycoL 3350 17 GM POWD.PACK PO (09:14)
[2022-08-11] MEDS: SACCHAROMYCES BOULARDII 250 MG CAPSULE PO ×2 (09:14→17:23)
[2022-08-11] MEDS: FLUCONAZOLE 100 MG TABLET 200 MG PO (09:15)
[2022-08-11] MEDS: ESCITALOPRAM OXALATE 10 MG TABLET 20 MG PO (09:15)
[2022-08-11] MEDS: GABAPENTIN 300 MG CAPSULE PO ×3 (09:16→17:23)
[2022-08-11] MEDS: DOCUSATE SODIUM 100 MG CAPSULE PO (09:16)
[2022-08-11] MEDS: EMPAGLIFLOZIN 10 MG TABLET PO (09:16)
[2022-08-11] MEDS: allopurinoL 100 MG TABLET PO (09:16)
[2022-08-11] MEDS: ASPIRIN 81 MG CHEWABLE TABLET PO (09:16)
[2022-08-11] MEDS: lisinopriL 10 MG TABLET PO (09:16)
[2022-08-11] MEDS: DOXYCYCLINE HYCLATE 100 MG TABLET PO ×2 (09:19→20:36)
[2022-08-11] MEDS: TOLNAFTATE 1% POWDER 45 GM BTL 1 APPLIC TOPICAL ×2 (09:22→20:37)
[2022-08-11] MEDS: BUDESONIDE/FORMOTEROL 80/4.5 MCG 6.9 GM INHALER (*SP) 2 PUFF INHALATION ×2 (09:49→20:37)
[2022-08-11] MEDS: INSULIN GLARGINE (*BKC) 100 UNITS/ML 50 UNITS SUB-Q (09:50)
[2022-08-11 11:59] LABS: Glucose Point of Care 189 mg/dl (65-105)
[2022-08-11] MEDS: HYDROcodone/acetaminophen (*CRX) 5-325 MG TABLET 1 TAB PO ×2 (13:14→20:37)
[2022-08-11] MEDS: CALCIUM CARBONATE (TUMS) 500 MG (200 MG ELEMENTAL) PO (13:18)
[2022-08-11 16:30] VITALS: BP 97/57; PULSE 72; RESP 18; TEMP 36.2; O2SAT 96
[2022-08-11 16:51] LABS: Glucose Point of Care 118 mg/dl (65-105)
[2022-08-11] MEDS: traZODone HCL 50 MG TABLET PO (20:36)
[2022-08-11] MEDS: ATORVASTATIN 10 MG TABLET PO (20:36)
[2022-08-11 21:19] LABS: Glucose Point of Care 139 mg/dl (65-105)
[2022-08-11 23:38] VITALS: BP 85/57; PULSE 60; RESP 17; TEMP 36.8; O2SAT 92
[2022-08-12] MEDS: CALCIUM CARBONATE (TUMS) 500 MG (200 MG ELEMENTAL) PO ×3 (02:27→16:43)
[2022-08-12] MEDS: LEVOTHYROXINE SODIUM 25 MCG TABLET PO (06:25)
[2022-08-12] MEDS: LEVOTHYROXINE SODIUM 100 MCG TABLET PO (06:25)
[2022-08-12 07:41] LABS: Glucose Point of Care 161 mg/dl (65-105)
[2022-08-12 07:57] VITALS: BP 114/59; PULSE 69; RESP 18; TEMP 36.4; O2SAT 94
[2022-08-12] MEDS: polyethylene glycoL 3350 17 GM POWD.PACK PO (08:09)
[2022-08-12] MEDS: BUDESONIDE/FORMOTEROL 80/4.5 MCG 6.9 GM INHALER (*SP) 2 PUFF INHALATION ×2 (08:09→20:35)
[2022-08-12] MEDS: ASPIRIN 81 MG CHEWABLE TABLET PO (08:10)
[2022-08-12] MEDS: EMPAGLIFLOZIN 10 MG TABLET PO (08:10)
[2022-08-12] MEDS: metFORMIN HCL 500 MG TABLET 1000 MG PO ×2 (08:11→16:43)
[2022-08-12] MEDS: FLUCONAZOLE 100 MG TABLET 200 MG PO (08:11)
[2022-08-12] MEDS: DOCUSATE SODIUM 100 MG CAPSULE PO (08:11)
[2022-08-12] MEDS: SACCHAROMYCES BOULARDII 250 MG CAPSULE PO ×2 (08:12→16:43)
[2022-08-12] MEDS: GABAPENTIN 300 MG CAPSULE PO ×3 (08:12→16:44)
[2022-08-12] MEDS: allopurinoL 100 MG TABLET PO (08:12)
[2022-08-12] MEDS: ESCITALOPRAM OXALATE 10 MG TABLET 20 MG PO (08:12)
[2022-08-12] MEDS: ERGOCALCIFEROL 50,000 UNIT CAPSULE 50000 UNITS PO (08:13)
[2022-08-12] MEDS: AMOXICILLIN/CLAVULANATE K 875-125 MG TAB 1 TABLET PO ×2 (08:13→20:33)
[2022-08-12] MEDS: lisinopriL 10 MG TABLET PO (08:13)
[2022-08-12] MEDS: DOXYCYCLINE HYCLATE 100 MG TABLET PO ×2 (08:13→20:33)
[2022-08-12] MEDS: TOLNAFTATE 1% POWDER 45 GM BTL 1 APPLIC TOPICAL ×2 (08:14→20:35)
[2022-08-12 11:50] LABS: Glucose Point of Care 139 mg/dl (65-105)
[2022-08-12 16:00] VITALS: BP 126/67; PULSE 79; RESP 18; TEMP 37; O2SAT 95
[2022-08-12 16:35] LABS: Glucose Point of Care 162 mg/dl (65-105)
[2022-08-12] MEDS: traZODone HCL 50 MG TABLET PO (20:33)
[2022-08-12] MEDS: ATORVASTATIN 10 MG TABLET PO (20:33)
[2022-08-12] MEDS: HYDROcodone/acetaminophen (*CRX) 5-325 MG TABLET 1 TAB PO (20:33)
[2022-08-12 20:44] LABS: Glucose Point of Care 165 mg/dl (65-105)
[2022-08-12 23:54] VITALS: BP 98/60; PULSE 68; RESP 20; TEMP 36.9; O2SAT 96
[2022-08-13] MEDS: LEVOTHYROXINE SODIUM 100 MCG TABLET PO (05:53)
[2022-08-13] MEDS: LEVOTHYROXINE SODIUM 25 MCG TABLET PO (05:53)
[2022-08-13 07:49] LABS: Glucose Point of Care 156 mg/dl (65-105)
[2022-08-13 07:55] VITALS: BP 130/92; PULSE 78; RESP 16; TEMP 36.7; O2SAT 95
[2022-08-13] MEDS: BUDESONIDE/FORMOTEROL 80/4.5 MCG 6.9 GM INHALER (*SP) 2 PUFF INHALATION ×2 (08:55→20:51)
[2022-08-13] MEDS: FLUCONAZOLE 100 MG TABLET 200 MG PO (08:56)
[2022-08-13] MEDS: polyethylene glycoL 3350 17 GM POWD.PACK PO (08:56)
[2022-08-13] MEDS: EMPAGLIFLOZIN 10 MG TABLET PO (08:56)
[2022-08-13] MEDS: SACCHAROMYCES BOULARDII 250 MG CAPSULE PO ×2 (08:57→17:15)
[2022-08-13] MEDS: HYDROcodone/acetaminophen (*CRX) 5-325 MG TABLET 1 TAB PO ×2 (08:57→20:50)
[2022-08-13] MEDS: ASPIRIN 81 MG CHEWABLE TABLET PO (08:57)
[2022-08-13] MEDS: DOCUSATE SODIUM 100 MG CAPSULE PO (08:58)
[2022-08-13] MEDS: AMOXICILLIN/CLAVULANATE K 875-125 MG TAB 1 TABLET PO ×2 (08:58→20:46)
[2022-08-13] MEDS: metFORMIN HCL 500 MG TABLET 1000 MG PO ×2 (08:58→17:15)
[2022-08-13] MEDS: ESCITALOPRAM OXALATE 10 MG TABLET 20 MG PO (08:58)
[2022-08-13] MEDS: GABAPENTIN 300 MG CAPSULE PO ×3 (08:59→17:14)
[2022-08-13] MEDS: lisinopriL 10 MG TABLET PO (08:59)
[2022-08-13] MEDS: DOXYCYCLINE HYCLATE 100 MG TABLET PO ×2 (08:59→20:46)
[2022-08-13] MEDS: allopurinoL 100 MG TABLET PO (08:59)
[2022-08-13] MEDS: TOLNAFTATE 1% POWDER 45 GM BTL 1 APPLIC TOPICAL ×2 (09:00→20:51)
[2022-08-13 11:50] LABS: Glucose Point of Care 220 mg/dl (65-105)
[2022-08-13] MEDS: INSULIN GLARGINE (*BKC) 100 UNITS/ML 50 UNITS SUB-Q (12:18)
[2022-08-13 16:00] VITALS: BP 96/47; PULSE 68; RESP 16; TEMP 36.5; O2SAT 96
[2022-08-13 16:45] LABS: Glucose Point of Care 134 mg/dl (65-105)
[2022-08-13] MEDS: traZODone HCL 50 MG TABLET PO (20:46)
[2022-08-13] MEDS: ATORVASTATIN 10 MG TABLET PO (20:46)
[2022-08-13 21:06] LABS: Glucose Point of Care 162 mg/dl (65-105)
[2022-08-14] VITALS: BP 103/55; PULSE 70; RESP 16; TEMP 36.6; O2SAT 94
[2022-08-14] MEDS: LEVOTHYROXINE SODIUM 25 MCG TABLET PO (06:26)
[2022-08-14] MEDS: LEVOTHYROXINE SODIUM 100 MCG TABLET PO (06:26)
[2022-08-14 07:32] LABS: Glucose Point of Care 233 mg/dl (65-105)
[2022-08-14 08:00] VITALS: BP 105/68; PULSE 71; RESP 16; TEMP 36.7; O2SAT 95
--- NOTE | 2022-08-14 08:24 | P.DS_ITS ---
DS: Admitting Diagnosis Discharge Date 08/14/2022 Admitting Diagnosis S/p Right DUST MIXER-PA bypass surgical site infected, Weakness IDDM, DS: Discharge Diagnosis Discharge Diagnosis (1) Cellulitis: Code(s): L03.90 - Cellulitis, unspecified Status: Acute Assessment and Plan: * pannus and groin area * surgical site from recent surgery on 07/11 * Continue Augmentin and doxycycline until 08/06/2022 as recommended by infectious disease from an outside hospital * CBC pending * Wound care as ordered * Patient will continue all oral antibiotic until 08/16/2022 (2) PVD (peripheral vascular disease): Code(s): I73.9 - Peripheral vascular disease, unspecified Status: Acute Assessment and Plan: * s/p right CVA/PA bypass on 07/11/2022 * Follow-up with vascular surgery (3) HTN (hypertension): Code(s): I10 - Essential (primary) hypertension Status: Chronic Assessment and Plan: * Stable * Continue vital signs as ordered * Adjust medication as needed (4) Hypothyroidism: Code(s): E03.9 - Hypothyroidism, unspecified Status: Chronic Assessment and Plan: * Continue levothyroxine 125 MCG's daily * Patient will need a repeat TSH in 6 weeks patient medication adjusted in previous hospital (5) Hyperlipidemia: Code(s): E78.5 - Hyperlipidemia, unspecified Status: Chronic Assessment and Plan: * Continue atorvastatin (6) Depression: Code(s): F32.9 - Major depressive disorder, single episode, unspecified Status: Chronic Assessment and Plan: * Stable * Sinew home medication Lexapro (7) Low back pain: Code(s): M54.5 - Low back pain Status: Chronic Assessment and Plan: * Chronic * Started pain medication (8) COPD (chronic obstructive pulmonary disease): Code(s): J44.9 - Chronic obstructive pulmonary disease, unspecified Status: Chronic Assessment and Plan: * Stable * Continue albuterol started Symbicort (9) Nicotine dependence, cigarettes, uncomplicated: Code(s): F17.210 - Nicotine dependence, cigarettes, uncomplicated Status: Chronic (10) Type 2 diabetes mellitus: Code(s): E11.9 - Type 2 diabetes mellitus without complications Status: Chronic Assessment and Plan: * stAble * Accu-Cheks with sliding scale hypoglycemic protocol * Continue home medication * A1c pending * Will adjust medication as needed (11) Weakness: Code(s): R53.1 - Weakness Status: Acute Assessment and Plan: ? Exhibit tolerance during physical activity as evidenced by a normal fluctuation of vital signs during physical activity. ? Patient will be ability to perform required activities of daily living. ? Provide appropriate nutrition for healing and strength. ? Use appropriate to prevent falls. ? Continue physical therapy/occupational therapy. DS: Summary Hospital Course Reason for hospitalization: Cellulitis, REhab, weakness Hospital Course: This a 56-year-old female that was admitted to the hospital from [facility] after status post surgery from vascular. Patient has a past medical history of cerebral palsy, insulin-dependent diabetes, hypotension, obesity essential hypertension, gout, cellulitis of the pannus groin area, peripheral vascular disease, tobacco use, and noncompliance. Patient comes to us as a swing bed where she will receive daily dressing changes as well as physical and Occupational Therapy to assist help make her stron
--- NOTE | 2022-08-14 08:24 | PM.DS ---
DS: Admitting Diagnosis Discharge Date 08/14/2022 Admitting Diagnosis S/p Right CLOTH FINISHER-PA bypass surgical site infected, Weakness IDDM, DS: Discharge Diagnosis Discharge Diagnosis (1) Cellulitis: Code(s): L03.90 - Cellulitis, unspecified Status: Acute Assessment and Plan: pannus and groin area surgical site from recent surgery on 07/11 Continue Augmentin and doxycycline until 08/06/2022 as recommended by infectious disease from an outside hospital CBC pending Wound care as ordered Patient will continue all oral antibiotic until 08/16/2022 (2) PVD (peripheral vascular disease): Code(s): I73.9 - Peripheral vascular disease, unspecified Status: Acute Assessment and Plan: s/p right CVA/PA bypass on 07/11/2022 Follow-up with vascular surgery (3) HTN (hypertension): Code(s): I10 - Essential (primary) hypertension Status: Chronic Assessment and Plan: Stable Continue vital signs as ordered Adjust medication as needed (4) Hypothyroidism: Code(s): E03.9 - Hypothyroidism, unspecified Status: Chronic Assessment and Plan: Continue levothyroxine 125 MCG's daily Patient will need a repeat TSH in 6 weeks patient medication adjusted in previous hospital (5) Hyperlipidemia: Code(s): E78.5 - Hyperlipidemia, unspecified Status: Chronic Assessment and Plan: Continue atorvastatin (6) Depression: Code(s): F32.9 - Major depressive disorder, single episode, unspecified Status: Chronic Assessment and Plan: Stable Sinew home medication Lexapro (7) Low back pain: Code(s): M54.5 - Low back pain Status: Chronic Assessment and Plan: Chronic Started pain medication (8) COPD (chronic obstructive pulmonary disease): Code(s): J44.9 - Chronic obstructive pulmonary disease, unspecified Status: Chronic Assessment and Plan: Stable Continue albuterol started Symbicort (9) Nicotine dependence, cigarettes, uncomplicated: Code(s): F17.210 - Nicotine dependence, cigarettes, uncomplicated Status: Chronic (10) Type 2 diabetes mellitus: Code(s): E11.9 - Type 2 diabetes mellitus without complications Status: Chronic Assessment and Plan: stAble Accu-Cheks with sliding scale hypoglycemic protocol Continue home medication A1c pending Will adjust medication as needed (11) Weakness: Code(s): R53.1 - Weakness Status: Acute Assessment and Plan: ? Exhibit tolerance during physical activity as evidenced by a normal fluctuation of vital signs during physical activity. ? Patient will be ability to perform required activities of daily living. ? Provide appropriate nutrition for healing and strength. ? Use appropriate to prevent falls. ? Continue physical therapy/occupational therapy. DS: Summary Hospital Course Reason for hospitalization: Cellulitis, REhab, weakness Hospital Course: This a 56-year-old female that was admitted to the hospital from [facility] after status post surgery from vascular. Patient has a past medical history of cerebral palsy, insulin-dependent diabetes, hypotension, obesity essential hypertension, gout, cellulitis of the pannus groin area, peripheral vascular disease, tobacco use, and noncompliance. Patient comes to us as a swing bed where she will receive daily dressing changes as well as physical and Occupational Therapy to assist help make her stronger and to help teach on dressing changes and to monitor her surgical site. Patient has progressed well surgical site is healing with no erythema or pain is a minimal to palpitation. Patient blood sugars have been around the 140s to 190s patient's labs have continued to remain stable potassium 4.4, sodium 137, BUN 26, creatinine 0.65, RBCs 4.4, WBCs 11.6, hemoglobin 13.3, [place] 43,Patient has already been set up with home health will going to the home
[2022-08-14] MEDS: SACCHAROMYCES BOULARDII 250 MG CAPSULE PO (08:47)
[2022-08-14] MEDS: DOXYCYCLINE HYCLATE 100 MG TABLET PO (08:47)
[2022-08-14] MEDS: lisinopriL 10 MG TABLET PO (08:48)
[2022-08-14] MEDS: ASPIRIN 81 MG CHEWABLE TABLET PO (08:48)
[2022-08-14] MEDS: metFORMIN HCL 500 MG TABLET 1000 MG PO (08:48)
[2022-08-14] MEDS: AMOXICILLIN/CLAVULANATE K 875-125 MG TAB 1 TABLET PO (08:49)
[2022-08-14] MEDS: FLUCONAZOLE 100 MG TABLET 200 MG PO (08:49)
[2022-08-14] MEDS: ESCITALOPRAM OXALATE 10 MG TABLET 20 MG PO (08:49)
[2022-08-14] MEDS: GABAPENTIN 300 MG CAPSULE PO ×2 (08:49→12:24)
[2022-08-14] MEDS: BUDESONIDE/FORMOTEROL 80/4.5 MCG 6.9 GM INHALER (*SP) 2 PUFF INHALATION (08:50)
[2022-08-14] MEDS: allopurinoL 100 MG TABLET PO (08:52)
[2022-08-14] MEDS: EMPAGLIFLOZIN 10 MG TABLET PO (08:52)
[2022-08-14] MEDS: TOLNAFTATE 1% POWDER 45 GM BTL 1 APPLIC TOPICAL (08:53)
[2022-08-14] MEDS: INSULIN GLARGINE (*BKC) 100 UNITS/ML 50 UNITS SUB-Q (08:59)
--- NOTE | 2022-08-14 10:49 | PC.NURSE ---
Reviewed medications, follow up appointment and home health information with patient. STAFFING ASSISTANT spoke with patient and added 2 doses of trazadone and diflucan for patient. Patient advised to speak with GP at follow up appointment for further doses.
[2022-08-14 11:20] LABS: Glucose Point of Care 194 mg/dl (65-105)
--- NOTE | 2022-08-14 12:32 | PC.NURSE ---
Patient's belongings collected. waiting for her ride
--- NOTE | 2022-08-14 12:54 | PC.NURSE ---
Patient discharged. Taken to private vehicle by wheelchair with all belongings.
--- NOTE | 2022-08-19 10:43 | PC.NURSE ---
Unable to contact.
== END 2022-08-14 12:45 | disposition home health service (06) | DRG 949 ==
PROVIDERS: Nurse Practitioner; Admitting Provider Internal Medicine; PCP Specialist; Visit Provider Internal Medicine
DX: T81.41XD Infection following a procedure, superficial incisional surgical site, subsequent encounter (principal); L03.314 Cellulitis of groin; L97.829 Non-pressure chronic ulcer of other part of left lower leg with unspecified severity; I70.203 Unspecified atherosclerosis of native arteries of extremities, bilateral legs; E11.622 Type 2 diabetes mellitus with other skin ulcer; E11.51 Type 2 diabetes mellitus with diabetic peripheral angiopathy without gangrene; R53.1 Weakness; J44.9 Chronic obstructive pulmonary disease, unspecified; I10 Essential (primary) hypertension; E78.5 Hyperlipidemia, unspecified; E03.9 Hypothyroidism, unspecified; M54.50 Low back pain, unspecified; G80.9 Cerebral palsy, unspecified; G89.29 Other chronic pain; F32.A Depression, unspecified; Z87.891 Personal history of nicotine dependence; Z79.4 Long term (current) use of insulin; E66.9 Obesity, unspecified
CPT/HCPCS: 36415; 80053; 82948; 83036; 83735; 85025; 97110; 97112; 97161; 97165; 97530; 97535; A9270; J1815

== ENCOUNTER 2022-09-16 11:14 | Outpatient (RCR) | payer MEDICARE, MEDICAID, SELFPAY | END 2022-10-09 23:59 | disposition home or self-care (01) | LOC: CHSWOUND 11:14 | PROVIDERS: PCP Nurse Practitioner Family; Visit Provider Nurse Practitioner Acute Care | DX: E11.621 Type 2 diabetes mellitus with foot ulcer (principal); L97.512 Non-pressure chronic ulcer of other part of right foot with fat layer exposed; E11.52 Type 2 diabetes mellitus with diabetic peripheral angiopathy with gangrene; J44.9 Chronic obstructive pulmonary disease, unspecified; I10 Essential (primary) hypertension; E78.5 Hyperlipidemia, unspecified; E03.9 Hypothyroidism, unspecified; F32.A Depression, unspecified; G80.9 Cerebral palsy, unspecified | CPT/HCPCS: 11042; 99213; G0463 ==

== ENCOUNTER 2022-10-23 12:11 | Emergency (ER) | payer MEDICARE, MEDICAID, SELFPAY ==
--- NOTE | ~2022-10-23 | XR_ITS ---
XR wrist LT min 3V DATE: 10/23/2022 13:15 INDICATION: Fall 4 days ago. Generalized left wrist pain, stiffness, limited range of motion TECHNIQUE: 4 views COMPARISON: None FINDINGS: There is joint space narrowing and prominent spurring at the first carpometacarpal joint. There is mild osteoarthritis at the interphalangeal joint of the first digit. No fracture or dislocation, periosteal reaction or bone destruction. IMPRESSION: Prominent osteoarthritis at first carpometacarpal joint Mild osteoarthritis at interphalangeal joint of first digit Reviewed, dictated and finalized at location B. CH SERVICE LEADER
--- NOTE | ~2022-10-23 | XR_ITS ---
XR shoulder RT min 2V DATE: 10/23/2022 13:15 INDICATION: Fall 4 days ago. Pain, stiffness, limited range of motion TECHNIQUE: 4 views COMPARISON: 12/01/2015 right shoulder FINDINGS: Normal alignment at the right acromioclavicular and glenohumeral joints. There is mild osteoarthritis at the right glenohumeral joint. No fracture or dislocation, periosteal reaction or bone destruction or abnormal soft tissue calcifica tion of the right shoulder. Osteopenia. Postoperative changes of the lower cervical area. IMPRESSION: Mild osteoarthritis at the glenohumeral joint Osteopenia Reviewed, dictated and finalized at location B. AL ACCOUNTING CLERK
--- NOTE | ~2022-10-23 | XR_ITS ---
XR ribs LT 2V DATE: 10/23/2022 13:15 INDICATION: Fall 4 days ago. Left rib pain TECHNIQUE: 3 views COMPARISON: None FINDINGS: There is osteopenia. No fracture or bone destruction of the left rib cage is detected. No left lung infiltrate or consolidation, pleural effusion or pneumothorax is noted. IMPRESSION: Osteopenia; no detected fracture or underlying pulmonary contusion, pleural effusion or p neumothorax Reviewed, dictated and finalized at location B. OR ELECTRONICS TECHNICIAN IMPRESSION: Osteopenia; no detected fracture or underlying pulmonary contusion, pleural effusion or pneumothorax
--- NOTE | ~2022-10-23 | CT_ITS ---
EXAMINATION: CT cervical spine wo con DATE: 10/23/2022 13:38 INDICATION: Neck pain after recent fall TECHNIQUE: Computed tomography (CT) of the cervical spine was performed without intravenous contrast. The dose-length product was 436 mGy-cm. Automated exposure control and iterative reconstruction tech nique were employed. COMPARISON: None FINDINGS: There is degenerative disc disease at C6-7. There is degenerative anterolisthesis at C4-5 a nd C5-6 secondary to facet hypertrophy. No acute fracture or traumatic malalignment. Odontoid process is normal. Lateral masses are normally aligned. There is multilevel facet and uncinate hypertrophy. No paraspinal soft tissue abnormality. IMPRESSION: 1. No acute fracture. 2: Moderate cervical spondylosis. Reviewed, dictated and finalized at location A. ITY CLERK
[2022-10-23 12:30] VITALS: BP 136/88; PULSE 101; RESP 18; TEMP 36.8; O2SAT 97
--- NOTE | 2022-10-23 12:31 | ED.FALL ---
HPI - Fall General Chief Complaint: Fall Stated Complaint: FELL HAND AND BACK PAIN Time Seen by Provider: 10/23/22 12:31 Source: patient and RN notes reviewed Mode of arrival: ambulatory Limitations: no limitations History of Present Illness complaint: fall Onset (ago): day(s) (4) Fall from: out of bed Fall witnessed: no Place fall occurred: home Loss of consciousness: none Prolonged down time: no Symptoms prior to fall: none Context: tripped/slipped Location of injury: neck and chest (left ribs) Location of injury - extremities: Left: forearm (wrist) and Right: shoulder Severity: moderate Quality: dull and aching Associated symptoms (after fall): neck pain and chest pain (left ribs) Related Data Home Medications Medication Instructions Recorded Confirmed albuterol sulfate 90 mcg/actuation 2 puff inhalation Q6H PRN 07/17/22 09/03/22 aerosol inhaler shortness of breath or wheezing atorvastatin 10 mg tablet 10 mg PO HS 07/17/22 10/23/22 docusate sodium 100 mg capsule 100 mg PO DAILY 07/17/22 10/23/22 escitalopram oxalate 20 mg tablet 20 mg PO DAILY 07/17/22 10/23/22 (Lexapro) aspirin 81 mg chewable tablet 81 mg PO DAILY 08/06/22 09/03/22 polyethylene glycol 3350 17 gram 17 g PO DAILY 08/06/22 10/23/22 oral powder packet Allergies Allergy/AdvReac Type Severity Reaction Status Date / Time adhesive tape Allergy Itching Verified 10/23/22 12:49 Review of Systems Review of Systems: All systems reviewed & are unremarkable except as noted in HPI and below PMFSH Past Medical History Medical History BMI 33.0-33.9,adult COPD (chronic obstructive pulmonary disease) Depression HTN (hypertension) Hyperlipidemia Hypothyroidism Low back pain Nicotine dependence, cigarettes, uncomplicated Type 2 diabetes mellitus Surgical History Surgical History H/O eye surgery patient states eye correction surgery of left eye x 3 H/O hand surgery right hand per patient History of cholecystectomy History of vascular surgery left lower extremity Hx of thyroidectomy 2002 Hx of tonsillectomy Age 16 Family History Family History Father Diabetes mellitus Heart disease Social History Social History Smoking packs per day: 0.5 Smoking cigarettes per day: 10.0 Years smoked: 40 Smoking pack-years: 20.00 Smoking status: Former smoker Second hand tobacco smoke exposure: Yes Alcohol intake: unknown Substance use: unknown Substance use type: does not use Gender identity (if verbalized by the patient): Female Spiritual care concerns: No Exam Const: General: healthy appearing, no acute distress and alert Nutritional Appearance: well nourished and obese Orientation/consciousness: patient oriented x3 Limitations: no limitations HENMT: Head: normal to inspection Ears: external ears normal Face and sinus: normal facial exam Mouth: Yes moist mucous membranes Eyes: Conjunctivae: conjunctivae normal Pupils: Equal, round and reactive pupils present EOM: EOMs intact bilaterally Neck: Neck: normal visual inspection Chest: Chest palpation & inspection: tenderness rib left mid-clavicular line involving the 8th rib and involving the 9th rib Resp: Effort & Inspection: normal respiratory effort Auscultation: clear to auscultation bilaterally Cardio: Rate: regular rate Rhythm: regular rhythm GI: GI Palp: Yes Soft to palpation and No Tenderness to palpation present (GI) Auscultation: normal bowel sounds Back/Spine/Pelvis: Cervical Spine: cervical muscular tenderness, pain with cervical ROM and Cervical spine tenderness ( C3, C4, C5) Thoracic/Lumbar Spine: thoraco-lumbar ROM normal Skin: General skin exam: normal color Rashes: no rashes Neuro: General: patient oriented x3, moves all extr
--- NOTE | 2022-10-23 13:13 | PC.NURSE ---
PT RETURNS FROM XRAY AT THIS TIME.
--- NOTE | 2022-10-23 13:49 | PC.NURSE ---
PT TO RR WITH ASSISTANCE, HAD DIFFICULTY PULLING UP HER PANTS. PT DOES HAVE CP AND REPORTS SHE HAS BEEN HAVING DIFFICULTY WITH HER RT HAND RECENTLY. PT RETURNED TO STRETCHER, WARM BLANKET AND WATER PROVIDED. WILL CONTINUE TO MONITOR.
--- NOTE | 2022-10-23 14:24 | PC.NURSE ---
PT IS SPEAKING WITH [facility] AT THIS TIME. PT IS TO BE DC HOME.
[2022-10-23 14:40] VITALS: BP 109/68; PULSE 76; RESP 16; O2SAT 98
== END 2022-10-23 14:40 | disposition home or self-care (01) ==
PROVIDERS: Emergency Provider Emergency Medicine; PCP Nurse Practitioner Family
DX: S60.212A Contusion of left wrist, initial encounter (principal); W19.XXXA Unspecified fall, initial encounter; J44.9 Chronic obstructive pulmonary disease, unspecified; I10 Essential (primary) hypertension; E78.5 Hyperlipidemia, unspecified; E03.9 Hypothyroidism, unspecified; E11.9 Type 2 diabetes mellitus without complications; F17.200 Nicotine dependence, unspecified, uncomplicated
CPT/HCPCS: 71100; 72125; 73030; 73110; 99284

== ENCOUNTER 2022-10-31 19:10 | Outpatient (NON) | payer MEDICARE, MEDICAID, SELFPAY | END 2022-10-31 19:11 | disposition home or self-care (01) | LOC: CHSLAB 19:12 | PROVIDERS: PCP Nurse Practitioner Family; Visit Provider Nurse Practitioner Family | DX: S21.002A Unspecified open wound of left breast, initial encounter (principal) | CPT/HCPCS: 87070; 87147; 87186; 87205 ==

== ENCOUNTER 2022-11-04 11:07 | Outpatient (RCR) | payer MEDICARE, MEDICAID, SELFPAY | END 2022-12-04 23:59 | disposition home or self-care (01) | LOC: CHSWOUND 11:07 | PROVIDERS: PCP Nurse Practitioner Family; Visit Provider Nurse Practitioner Acute Care | DX: E11.621 Type 2 diabetes mellitus with foot ulcer (principal); L97.518 Non-pressure chronic ulcer of other part of right foot with other specified severity; J44.9 Chronic obstructive pulmonary disease, unspecified; I10 Essential (primary) hypertension; E78.5 Hyperlipidemia, unspecified; E03.9 Hypothyroidism, unspecified; F32.A Depression, unspecified; Z79.4 Long term (current) use of insulin | CPT/HCPCS: 99213; G0463 ==

== ENCOUNTER 2023-01-15 09:20 | Emergency (ER) | payer MEDICARE, SELFPAY ==
--- NOTE | ~2023-01-15 | XR_ITS ---
XR elbow LT min 3V 01/15/2023 09:52 Indication: Elbow pain and redness after recent injury Procedure: 4 views left elbow Comparison: 01/18/2015 Findings: There is moderate dorsal soft tissue swelling overlying the olecranon process. No fracture, subluxation or dislocation. No foreign bodies. Impression: 1: Moderate dorsal soft tissue swelling overlying the olecranon process. Reviewed, dictated and finalized at location B. CTOR OF ENGINEERING Impression: 1: Moderate dorsal soft tissue swelling overlying the olecranon process.
[2023-01-15 09:20] VITALS: BP 157/92; PULSE 79; RESP 20; TEMP 36.4; O2SAT 98
--- NOTE | 2023-01-15 10:09 | ED.UPPEXIN ---
HPI - Extremity Injury (Upper) General Chief Complaint: Extremity Injury, Upper Stated Complaint: abscess Time Seen by Provider: 01/15/23 09:39 History of Present Illness HPI narrative: Pt banged left elbow and a outdoor post a few days ago. Pt says she has developed pain and swelling to left elbow. Pt also says she has draining cysts in right arm pit. Pt denies fever or chills. Related Data Home Medications Medication Instructions Recorded Confirmed albuterol sulfate 90 mcg/actuation 2 puff inhalation Q6H PRN 07/17/22 01/15/23 aerosol inhaler shortness of breath or wheezing docusate sodium 100 mg capsule 100 mg PO DAILY 07/17/22 01/15/23 aspirin 81 mg chewable tablet 81 mg PO DAILY 08/06/22 01/15/23 polyethylene glycol 3350 17 gram 17 g PO DAILY 08/06/22 01/15/23 oral powder packet Allergies Allergy/AdvReac Type Severity Reaction Status Date / Time adhesive tape Allergy Itching Verified 01/15/23 09:35 Review of Systems Review of Systems: All systems reviewed & are unremarkable except as noted in HPI and below PMFSH Past Medical History Medical History BMI 33.0-33.9,adult COPD (chronic obstructive pulmonary disease) Depression HTN (hypertension) Hyperlipidemia Hypothyroidism Low back pain Nicotine dependence, cigarettes, uncomplicated Type 2 diabetes mellitus Surgical History Surgical History H/O eye surgery patient states eye correction surgery of left eye x 3 H/O hand surgery right hand per patient History of cholecystectomy History of vascular surgery left lower extremity Hx of thyroidectomy 2002 Hx of tonsillectomy Age 16 Family History Family History Father Diabetes mellitus Heart disease Social History Social History Smoking packs per day: 0.5 Smoking cigarettes per day: 10.0 Years smoked: 40 Smoking pack-years: 20.00 Smoking status: Former smoker Second hand tobacco smoke exposure: Yes Alcohol intake: unknown Substance use: unknown Substance use type: does not use Gender identity (if verbalized by the patient): Female Spiritual care concerns: No Exam Const: General: healthy appearing Nutritional Appearance: well nourished Orientation/consciousness: patient oriented x3 Limitations: no limitations Neck: Neck: normal visual inspection Resp: Effort & Inspection: normal respiratory effort Auscultation: clear to auscultation bilaterally Cardio: Rate: regular rate Rhythm: regular rhythm GI: GI Palp: Yes Soft to palpation Auscultation: normal bowel sounds Skin: Rashes: no rashes Wounds: no wounds Other: mild wqarmth and erythema over left olecrenon bursa left elbow, small abscess right axilla Neuro: General: patient oriented x3, moves all extremities and no focal motor deficits Speech: normal speech Extrem: General: no clubbing, cyanosis or edema Other: swelling over left olecrenon bursa elbow Psych: Mental Status: mental status grossly normal Affect: normal affect Attitude: cooperative Course Vital Signs Vital signs: Vital Signs Temperature 97.6 F 01/15/23 09:20 Pulse Rate 79 01/15/23 09:20 Respiratory Rate 20 01/15/23 09:20 Blood Pressure 157/92 H 01/15/23 09:20 Pulse Oximetry 98 01/15/23 09:20 Oxygen Delivery Room Air 01/15/23 09:20 Temperature 97.6 F 01/15/23 09:20 Pulse Rate 76 01/15/23 11:15 Respiratory Rate 16 01/15/23 11:15 Blood Pressure 161/79 H 01/15/23 11:15 Pulse Oximetry 96 01/15/23 11:15 Oxygen Delivery Room Air 01/15/23 11:15 MDM - Extremity Injury (Upper) MDM Narrative Medical decision making narrative: looks like olecrenon bursitis but will rule out fx with trauma, will need to I and D abscess in right axilla. After discussing with patient she
[2023-01-15] MEDS: LIDOCAINE HCL 1% LOCAL INJ 10 ML VIAL INFILTRATE (10:21)
[2023-01-15 11:15] VITALS: BP 161/79; PULSE 76; RESP 16; O2SAT 96
== END 2023-01-15 11:15 | disposition home or self-care (01) ==
PROVIDERS: Emergency Provider Emergency Medicine; PCP Nurse Practitioner Family
DX: M70.22 Olecranon bursitis, left elbow (principal); L02.411 Cutaneous abscess of right axilla; I10 Essential (primary) hypertension; E78.5 Hyperlipidemia, unspecified; E03.9 Hypothyroidism, unspecified; E11.9 Type 2 diabetes mellitus without complications; J44.9 Chronic obstructive pulmonary disease, unspecified; Z79.82 Long term (current) use of aspirin; Z87.891 Personal history of nicotine dependence
CPT/HCPCS: 73080; 99283

== ENCOUNTER 2023-03-05 14:21 | Outpatient (CLI) | payer MEDICARE, SELFPAY ==
[2023-03-05 14:54] LABS: Basophils Absolute Auto 0.13 K/mm3 (0.00-0.10); Eosinophils Absolute Auto 0.24 K/mm3 (0.02-0.50); Eosinophils Percent Auto 1.9 % (1.0-6.0); Hematocrit 48.5 % (35.0-49.0); Immature Granulocyte Absolute 0.05 K/mm3 (0.00-0.00); Immature Granulocyte Percent A 0.4 % (0.0-0.0); Lymphocytes Absolute Auto 3.42 K/mm3 (1.10-4.50); Lymphocytes Percent Auto 26.8 % (18.0-42.0); Mean Corpuscular Hemoglobin 30.5 pg (27.0-31.0); Mean Corpuscular Volume 92.6 fL (78.0-102.0); Mean Platelet Volume 10.2 fl (9.2-11.8); Monocytes Absolute Auto 0.54 K/mm3 (0.10-0.90); Monocytes Percent Auto 4.2 % (2.0-11.0); Neutrophils Absolute Auto 8.4 K/mm3 (1.7-7.2); Neutrophils Percent Auto 65.7 % (50.0-70.0); Platelet Count Result 274 K/mm3 (150-420); Red Blood Count 5.24 M/mm3 (4.20-5.40); White Blood Count 12.8 K/mm3 (4.8-10.8)
[2023-03-05 15:09] LABS: Hemoglobin A1C 12.4 % (<5.7)
[2023-03-05 15:15] LABS: Alanine Aminotransferase 24 U/L (14-59); Albumin Level 3.7 g/dL (3.4-5.0); Alkaline Phosphatase 97 U/L (46-116); Anion Gap 13 mmol/L (8-16); Aspartate Amino Transferase 18 U/L (15-37); Bilirubin,Total 0.3 mg/dL (0.00-1.00); Blood Urea Nitrogen 20 mg/dL (7-18); Calcium 9.6 mg/dL (8.5-10.1); Carbon Dioxide 27 mmol/L (21-32); Chloride 96 mmol/L (98-108); Estimated Glomerular Filt Rate > 60; Free T4 Free Thyroxine 0.14 ng/dL (0.76-1.46); Glucose 386 mg/dL (70-99); HDL Direct 38 mg/dL (40-60); Osmolality Calculated 300 mOsm/kg (285-295); Potassium 4.2 mmol/L (3.5-5.1); Sodium 136 mmol/L (136-145); Thyroid Stimulating Hormone 22.22 uIU/mL (0.36-3.74); Total Protein 7.6 g/dL (6.4-8.2)
[2023-03-05 15:17] LABS: HIV 1 P24 AG Negative (Negative); HIV 1/2 AB Negative (Negative)
[2023-03-05 15:24] LABS: Cholesterol 226 mg/dL (0-200)
[2023-03-05 15:32] LABS: LDL Cholesterol Calculated 138 mg/dL (<130); Triglycerides 249 mg/dL (0-150)
[2023-03-10 12:10] LABS: RPR Screen Non-Reactive (Non-Reactive)
[2023-03-11 10:10] LABS: HSV 1 IgM Screen Negative (Negative); HSV 2 IgM Screen Negative (Negative)
[2023-03-12 13:41] LABS: Vitamin D 25 Hydroxy 14 ng/mL (30-100)
[2023-03-13 12:59] LABS: Hepatitis C Signal to Cutoff 0.02 ratio (<1.00); Hepatitis C Virus Antibody Nonreactive (Nonreactive)
== END 2023-03-05 14:22 | disposition home or self-care (01) ==
PROVIDERS: PCP Nurse Practitioner Family; Visit Provider Nurse Practitioner Family
DX: I10 Essential (primary) hypertension (principal); E03.9 Hypothyroidism, unspecified; E78.5 Hyperlipidemia, unspecified; E11.9 Type 2 diabetes mellitus without complications; Z20.2 Contact with and (suspected) exposure to infections with a predominantly sexual mode of transmission; Z79.899 Other long term (current) drug therapy; Z11.3 Encounter for screening for infections with a predominantly sexual mode of transmission; Z72.89 Other problems related to lifestyle
CPT/HCPCS: 36415; 80053; 80061; 82306; 83036; 84439; 84443; 85025; 86592; 86695; 86696; 86703; 86803; 87806

== ENCOUNTER 2023-06-03 16:20 | Observation (INO) | payer MEDICARE, MEDICAID, SELFPAY ==
[2023-06-03] VITALS (36 sets, daily range): BP systolic 114–174; BP diastolic 66–99; PULSE 60–80; RESP 10–20; TEMP 36.3–36.8; O2SAT 89–100; BMI 35.4
--- NOTE | ~2023-06-03 | XR_ITS ---
EXAMINATION: XR chest 1V portable Exam Date/Time: 06/03/2023 16:40 CDT HISTORY: dyspnea Comparison: 10/23/2021, x-ray chest and CTPA. RESULT: Exam limited by significant rightward rotation. Lines, tubes, and devices: Surgical clips over the lower neck. Lungs and pleura: Low lung volumes. Streaky bibasilar opacities, likely atelectasis/scar. Cardiomediastinal silhouette: Stable, given interval differences in technique. Other: No acute osseous or upper abdominal finding. IMPRESSION: No acute cardiopulmonary process. Reviewed, dictated and finalized at location K.
--- NOTE | ~2023-06-03 | XR_ITS ---
EXAM: XR hip LT min 2V DATE: 06/03/2023 16:57 HISTORY: Fall/LATERAL PAIN . COMPARISON: None available. FINDINGS: Exam limited by obliquity in the frontal view. Normal mineralization. No fracture or disloc ation. No lytic or blastic lesion. Enthesopathy at the greater trochanter. Degenerative change in the left hip and pubic symphysis. No erosion or periosteal change. Subcutaneous stranding laterally over the left hip, may represent contusion. IMPRESSION: Limited frontal view. No definite acute osseous finding in the left hip. If clinical susp icion of injury is high, consider CT of the pelvis. Reviewed, dictated and finalized at location K. IMPRESSION: Limited frontal view. No definite acute osseous finding in the left hip. If clinical suspicion of injury is high, consider CT of the pelvis.
--- NOTE | 2023-06-03 16:26 | ED.SOB ---
HPI - SOB/Dyspnea General Chief Complaint: Shortness of Breath/Dyspnea Stated Complaint: shortness of breath Time Seen by Provider: 06/03/23 16:26 Source: patient, EMS and RN notes reviewed Mode of arrival: EMS Limitations: no limitations History of Present Illness HPI Narrative: patient apparently lives at home alone. She put a sign-in her window or on her door that she needed help to call 911. She finally was able to flex someone down to call for an ambulance. She says she has been up hour for 3 weeks. She is noncompliant with her diabetic medications. She has not been able to use her oxygen or nebulizer for a month. MD elicited complaint: shortness of breath Pertinent past history: COPD Onset (ago): week(s) (3) Context: medication noncompliance Timing: constant Severity: moderate Exacerbating factors: exertion Relieving factors: oxygen Known history of: COPD Associated symptoms: lower extremity pain (from a fall 3 days ago) Treatment prior to arrival: oxygen Related Data Home oxygen amount: none ( Post be on oxygen but has no power) Home Medications Medication Instructions Recorded Confirmed albuterol sulfate 90 mcg/actuation 2 puff inhalation Q6H PRN 07/17/22 03/11/23 aerosol inhaler shortness of breath or wheezing docusate sodium 100 mg capsule 100 mg PO DAILY 07/17/22 03/11/23 aspirin 81 mg chewable tablet 81 mg PO DAILY 08/06/22 03/11/23 polyethylene glycol 3350 17 gram 17 g PO DAILY 08/06/22 03/11/23 oral powder packet Allergies Allergy/AdvReac Type Severity Reaction Status Date / Time adhesive tape Allergy Itching Verified 06/03/23 16:42 Review of Systems Review of Systems: All systems reviewed & are unremarkable except as noted in HPI and below PMFSH Past Medical History Medical History (Updated 06/03/23 @ 17:24 by Cem Bowens MD) BMI 33.0-33.9,adult Cerebral palsy COPD (chronic obstructive pulmonary disease) Depression HTN (hypertension) Hyperlipidemia Hypothyroidism Low back pain Nicotine dependence, cigarettes, uncomplicated PVD (peripheral vascular disease) Type 2 diabetes mellitus Surgical History Surgical History H/O eye surgery patient states eye correction surgery of left eye x 3 H/O hand surgery right hand per patient History of cholecystectomy History of vascular surgery left lower extremity Hx of thyroidectomy 2002 Hx of tonsillectomy Age 16 Family History Family History Father Diabetes mellitus Heart disease Social History Social History Smoking packs per day: 0.5 Smoking cigarettes per day: 10.0 Years smoked: 40 Smoking pack-years: 20.00 Smoking status: Former smoker Second hand tobacco smoke exposure: Yes Alcohol intake: unknown Substance use: unknown Substance use type: does not use Gender identity (if verbalized by the patient): Female Spiritual care concerns: No Exam Const: General: ill appearing acutely and chronically Nutritional Appearance: obese Orientation/consciousness: patient oriented x3 Limitations: no limitations HENMT: Head: normal to inspection Ears: external ears normal Face/Nose/Sinus: Normal external nose present Face and sinus: normal facial exam Mouth: Yes moist mucous membranes Eyes: Conjunctivae: conjunctivae normal Pupils: Equal, round and reactive pupils present EOM: EOMs intact bilaterally Neck: Neck: normal visual inspection Resp: Effort & Inspection: normal respiratory effort Auscultation: crackles bilateral at the base Cardio: Rate: regular rate Rhythm: regular rhythm GI: GI Palp: Yes Soft to palpation and No Tenderness to palpation present (GI) Auscultation: normal bowel sounds Back/Spine/Pelvis: Cervical Spine: cervical ROM normal Thoracic/Lumbar Spine: thoraco-lumbar ROM normal Skin: General skin exam: normal co
[2023-06-03] MEDS: IPRATROPIUM 0.5 MG/ALBUTEROL SULFATE 2.5 MG AMPUL.NEB 3 ML INHALATION ×2 (16:38→23:00)
[2023-06-03 16:50] LABS: Basophils Absolute Auto 0.09 K/mm3 (0.00-0.10); Basophils Percent Auto 0.8 % (0.0-1.0); Eosinophils Absolute Auto 0.16 K/mm3 (0.02-0.50); Eosinophils Percent Auto 1.5 % (1.0-6.0); Hematocrit 43.7 % (35.0-49.0); Hemoglobin 14.3 g/dL (12.0-15.0); Immature Granulocyte Absolute 0.04 K/mm3 (0.00-0.00); Immature Granulocyte Percent A 0.4 % (0.0-0.0); Lymphocytes Absolute Auto 3.31 K/mm3 (1.10-4.50); Lymphocytes Percent Auto 31.2 % (18.0-42.0); Mean Corpuscular HGB Conc 32.7 g/dL (32.0-36.0); Mean Corpuscular Volume 94.6 fL (78.0-102.0); Mean Platelet Volume 9.6 fl (9.2-11.8); Monocytes Absolute Auto 0.56 K/mm3 (0.10-0.90); Monocytes Percent Auto 5.3 % (2.0-11.0); Neutrophils Absolute Auto 6.4 K/mm3 (1.7-7.2); Neutrophils Percent Auto 60.8 % (50.0-70.0); Platelet Count Result 271 K/mm3 (150-420); Red Blood Count 4.62 M/mm3 (4.20-5.40); Red Cell Distribution Width 13.5 % (11.6-14.4); White Blood Count 10.6 K/mm3 (4.8-10.8)
[2023-06-03 16:51] LABS: Base Excess ABG 4.2 mmol/L (0-2); HCO3 ABG 28.9 mmol/L (23-29); Oxygen Content ABG 19.3 %vol (16.0-22.0); Oxyhemoglobin 89.3 % (94-100); PO2 ABG 65.6 mmHg (80-90); Total Hemoglobin 15.4 g/dL (12.0-18.0); pH ABG 7.45 (7.35-7.45)
[2023-06-03 16:52] LABS: Device NASAL CANNULA; Modified Allen's Test Pass; Site Drawn LEFT RADIAL
[2023-06-03 17:06] LABS: Partial Thromboplastin Time 27.9 SEC (23.90-30.70); Prothrombin Time 10.9 Seconds (9.50-12.10)
[2023-06-03 17:07] LABS: Alanine Aminotransferase 22 U/L (14-59); Albumin Level 3.3 g/dL (3.4-5.0); Alkaline Phosphatase 77 U/L (46-116); Anion Gap 8 mmol/L (8-16); Aspartate Amino Transferase 26 U/L (15-37); Bilirubin,Total 0.4 mg/dL (0.00-1.00); Blood Urea Nitrogen 13 mg/dL (7-18); Calcium 8.9 mg/dL (8.5-10.1); Carbon Dioxide 31 mmol/L (21-32); Chloride 99 mmol/L (98-108); Estimated Glomerular Filt Rate > 60; Osmolality Calculated 303 mOsm/kg (285-295); Potassium 3.6 mmol/L (3.5-5.1); Sodium 138 mmol/L (136-145); Total Protein 7.1 g/dL (6.4-8.2)
[2023-06-03 17:08] LABS: Glucose 407 mg/dL (70-99)
--- NOTE | 2023-06-03 17:09 | PC.NURSE ---
PT HAD AN UPDRAFT PER EMS UPON [facility], THEY REPORTED WHEEZING UPON THEIR ASSESSMENT. PT HAS HAD PERICARE PROVIDED, DRY DEPEND IN PLACE, FEET HAVE BEEN CLEANED, AND PT IS IN A HOSPITAL GOWN. EXCORIATION NOTED UNDER RT SIDE OF PANUS. PURPLE BRUISING NOTED TO LT LATERAL THIGH WITH SWELLING AT LEFT HIP. PT REPORTS SHE FELL 3 DAYS AGO, LOST HER BALANCE. PT HAS BEEN LIVING IN HER HOUSE FOR THE PAST 3 WEEKS WITHOUT POWER, UNABLE TO USE HOME NEBULIZER. PT REPORTS SHE HAS A DOG AT THE RESIDENCE. DRIED FECES AND HAIR WERE NOTED ON FEET UPON [facility]. PT HAS NOT BEEN COMPLIANT WITH HER MEDICATION REGIMEN SINCE 03/09. THIS RN CALLED AND SPOKE WITH PHARMACIST AT [facility] WHO REPORT THEY HAVE NOT FILLED ANY MEDICATIONS SINCE THEN. PT REPORTS SHE NEEDS HELP, SHE DOESN'T HAVE ANYONE TO HELP TAKE CARE OF HER AT HOME.
[2023-06-03 17:13] LABS: CRP 0.7 mg/dL (0.0-0.9); Magnesium 1.3 mg/dL (1.8-2.4); NT Pro B Type Natriuretic Pept 64 pg/mL (0-125)
[2023-06-03 17:14] LABS: Thyroid Stimulating Hormone 25.59 uIU/mL (0.36-3.74)
[2023-06-03] MEDS: INSULIN HUMAN REGULAR (*BKC) 1,000 UNITS/10 ML VIAL 15 UNITS SUB-Q (17:14)
--- NOTE | 2023-06-03 17:28 | PC.NURSE ---
PT IS RESTING ON STRETCHER WITHOUT DISTRESS. VSS PER MONITOR. PT DENIES ANY NEEDS OR COMPLAINTS, WARM BLANKET PROVIDED. LIGHTS OFF, CALL LIGHT IN REACH. PT IS AWAITING RETURN CALL FROM HOSPITALIST FOR ADMISSION AT THIS TIME. WILL CONTINUE TO MONITOR.
[2023-06-03 17:37] LABS: Appearance Urine Clear (Clear); Bilirubin Urine Negative (Negative); Blood Urine Negative (Negative); Color Urine Light Yellow (Yellow); Glucose Urine UA 3+ (Negative); Ketones Urine Trace (Negative); Leukocyte Esterase Ur Negative LEU/UL (Negative); Nitrate Urine Positive (Negative); Protein Urine 1+ (Negative); Specific Grav Ur 1.025 (1.010-1.020); Urobilinogen Urine 0.2 mg/dL (0.2-1.0)
[2023-06-03 17:46] LABS: Add Urine Microscopic? YES; RBC Urine 0-2 /hpf (0-2)
[2023-06-03 17:47] LABS: Bacteria Urine 2+ /hpf; Squamous Epithelial Cell Urine Few /hpf (Few); WBC Urine 0-3 /hpf (0-3)
[2023-06-03 18:17] LABS: Glucose Point of Care 401 mg/dl (65-105)
[2023-06-03] MEDS: INSULIN HUMAN REGULAR (*BKC) 1,000 UNITS/10 ML VIAL 10 UNITS SUB-Q (19:01)
--- NOTE | 2023-06-03 20:07 | PC.NURSE ---
repeat fsbs [id number]
--- NOTE | 2023-06-03 20:38 | PC.NURSE ---
2039 Patient questioned about meds. claims she does not know what she takes or can remember what they are. claims the last time she picked them about was maybe in february.
[2023-06-03 20:54] LABS: Glucose Point of Care 246 mg/dl (65-105)
[2023-06-03] MEDS: SODIUM CHLORIDE 0.9% IV 1,000 ML 100 ML IV CONT (21:03)
[2023-06-03] MEDS: lisinopriL 5 MG TABLET PO (21:03)
[2023-06-03] MEDS: TOLNAFTATE 1% POWDER 45 GM BTL 1 APPLIC TOPICAL (21:04)
[2023-06-03] MEDS: MAGNESIUM SULF 4 GM/WATER100ML 4 GM/100 ML BAG IVPB (21:40)
[2023-06-04] VITALS (9 sets, daily range): BP systolic 110–123; BP diastolic 56–70; PULSE 50–71; RESP 6–19; TEMP 36.1–36.6; O2SAT 91–97
--- NOTE | 2023-06-04 04:16 | PC.NURSE ---
On 06/04/23, the PRESIDENT, [Dee Jesus ], provided care and completed [facility] documentation on this patient. I have reviewed the PRESIDENT's documentation and agree with the findings.
[2023-06-04] MEDS: IPRATROPIUM 0.5 MG/ALBUTEROL SULFATE 2.5 MG AMPUL.NEB 3 ML INHALATION ×2 (05:04→12:15)
[2023-06-04 05:16] LABS: Basophils Absolute Auto 0.11 K/mm3 (0.00-0.10); Basophils Percent Auto 1.2 % (0.0-1.0); Eosinophils Absolute Auto 0.25 K/mm3 (0.02-0.50); Eosinophils Percent Auto 2.7 % (1.0-6.0); Hematocrit 44.5 % (35.0-49.0); Immature Granulocyte Absolute 0.03 K/mm3 (0.00-0.00); Immature Granulocyte Percent A 0.3 % (0.0-0.0); Lymphocytes Absolute Auto 3.38 K/mm3 (1.10-4.50); Lymphocytes Percent Auto 36.1 % (18.0-42.0); Mean Corpuscular HGB Conc 31.5 g/dL (32.0-36.0); Mean Corpuscular Hemoglobin 30.7 pg (27.0-31.0); Mean Corpuscular Volume 97.6 fL (78.0-102.0); Mean Platelet Volume 9.5 fl (9.2-11.8); Monocytes Absolute Auto 0.65 K/mm3 (0.10-0.90); Monocytes Percent Auto 6.9 % (2.0-11.0); Neutrophils Absolute Auto 4.9 K/mm3 (1.7-7.2); Neutrophils Percent Auto 52.8 % (50.0-70.0); Platelet Count Result 257 K/mm3 (150-420); Red Blood Count 4.56 M/mm3 (4.20-5.40); Red Cell Distribution Width 13.6 % (11.6-14.4); White Blood Count 9.4 K/mm3 (4.8-10.8)
[2023-06-04 05:28] LABS: Anion Gap 7 mmol/L (8-16); Blood Urea Nitrogen 10 mg/dL (7-18); Calcium 8.2 mg/dL (8.5-10.1); Carbon Dioxide 32 mmol/L (21-32); Chloride 103 mmol/L (98-108); Estimated CRCL calculation 75 ml/min; Estimated Glomerular Filt Rate > 60; Glucose 200 mg/dL (70-99); Magnesium 2.3 mg/dL (1.8-2.4); Osmolality Calculated 299 mOsm/kg (285-295); Potassium 3.5 mmol/L (3.5-5.1); Sodium 142 mmol/L (136-145)
[2023-06-04] MEDS: LEVOTHYROXINE SODIUM 100 MCG TABLET 200 MCG PO (06:35)
[2023-06-04 07:51] LABS: Glucose Point of Care 215 mg/dl (65-105)
--- NOTE | 2023-06-04 08:09 | PC.NURSE ---
Pt blood glucose this am is 215. Suplemental insulin given.
[2023-06-04] MEDS: SODIUM CHLORIDE 0.9% IV 1,000 ML 100 ML IV CONT ×2 (08:31→17:42)
[2023-06-04] MEDS: ASPIRIN 81 MG ENTERIC TABLET PO (08:32)
[2023-06-04] MEDS: TOLNAFTATE 1% POWDER 45 GM BTL 1 APPLIC TOPICAL ×2 (08:32→21:02)
[2023-06-04] MEDS: ATORVASTATIN 10 MG TABLET PO (08:33)
[2023-06-04] MEDS: lisinopriL 5 MG TABLET PO (08:33)
[2023-06-04] MEDS: ESCITALOPRAM OXALATE 10 MG TABLET 20 MG PO (08:33)
[2023-06-04] MEDS: PANTOPRAZOLE 40 MG TABLET PO (08:33)
[2023-06-04] MEDS: INSULIN HUMAN LISPRO (*BKC) 1,000 UNITS/10 ML VIAL SUB-Q ×3 (08:34→17:08)
[2023-06-04] MEDS: ACETAMINOPHEN 325 MG TABLET 650 MG PO (10:12)
[2023-06-04 10:54] LABS: Glucose Point of Care 296 mg/dl (65-105)
[2023-06-04 11:39] LABS: Glucose Point of Care 288 mg/dl (65-105)
--- NOTE | 2023-06-04 12:56 | PM.IMHP ---
H&P: HPI History of Present Illness Date/Time: 06/04/23 1015 Chief Complaint: Shortness of breath Narrative: Ms. Duron is a 57-year-old female who presented to the emergency room with complaints of increasing shortness of breath. Patient is a poor historian and and is unable to relay how long she has not been taking all her medications for. Patient states that she has had increasing shortness of breath for approximately 3-4 days prior to admission. Patient states that she did have a rare cough that was productive of a very thick sputum, but she did not note any color. Patient denied any fever or chills. Patient states she has been under a large amount of stress secondary to her living situation. Patient states that she was supposed to be taking inhalers and nebulizers at home, but she has not been doing so. Patient states she was also supposed to be wearing oxygen at 2 L per nasal cannula, but she has not had the ability to use her oxygen because she has been unable to get to it. Patient told the emergency room that she did not have any electricity and that she could not utilize her oxygen because she had no electricity. Patient states that she has been taking some of her medications, but she is unsure of which 1 she has been taking. Patient states that she know she has been out of multiple medications for the last few months. Patient states she has not been checking her blood glucose levels on a regular basis, because she previously had a Dexcom that continuously monitor her glucose levels. Patient states she is unsure of when the last time she had a Dexcom that was working. Upon evaluation emergency room patient stated that she had not been taking her nebulizer treatments or wearing her oxygen for approximately 1 month. Initial oxygen saturation was 90% on room air per pulse oximetry. Patient did have arterial blood gases performed that showed a PaO2 of 65.6 with an ABG O2 saturation of 94%, and these levels were on oxygen at 2 L per nasal cannula. Patient denies any chest pain, orthopnea, PND, lightheadedness, dizziness, syncopal, or near syncopal episodes. Patient denies any dysuria, hematuria, frequency, or urgency. As already stated patient is a poor historian and is not able to give a total full history. Patient states she has had multiple surgeries in the past but she cannot specifically explain what surgery she had. Patient states that she does know she has diabetes and ?lung issues?. Per previous records patient does have a known history of cerebral palsy, COPD, depression, hypertension, dyslipidemia, hypothyroidism, chronic low back pain, nicotine dependence, peripheral vascular disease, and diabetes mellitus. Review of Systems Review of Systems: A 12 point review of systems was completed with patient all pertinent positive and negative per HPI the remainder are unremarkable. [facility] Past Medical History Medical History (Updated 06/04/23 @ 13:20 by Cassandra Lopez, ADINA) BMI 33.0-33.9,adult Cerebral palsy COPD (chronic obstructive pulmonary disease) Depression HTN (hypertension) Hyperlipidemia Hypothyroidism Low back pain Nicotine dependence, cigarettes, uncomplicated PVD (peripheral vascular disease) Type 2 diabetes mellitus Surgical History Surgical History H/O eye surgery patient states eye correction surgery of left eye x 3 H/O hand surgery right hand per patient History of cholecystectomy History of vascular surgery left lower extremity Hx of thyroidectomy 2001 Hx of tonsillectomy Age 16 Family History Family History Father Diabetes mellitus Heart disease Social History Social History Smoking packs per day: 1 Smoking cigarettes per day: 20.0 Years smoked: 40 Smoking pack-years: 40.00 Smoking status: Current every day
[2023-06-04] MEDS: GABAPENTIN 300 MG CAPSULE BY MOUTH ×2 (13:38→17:07)
[2023-06-04] MEDS: methylPREDNISolone SOD SUCC 40 MG VIAL IV PUSH (17:07)
[2023-06-04] MEDS: metFORMIN HCL 500 MG TABLET PO (17:07)
[2023-06-04 17:08] LABS: Glucose Point of Care 248 mg/dl (65-105)
[2023-06-04 21:02] LABS: Glucose Point of Care 379 mg/dl (65-105)
--- NOTE | 2023-06-04 21:05 | PC.NURSE ---
This RN notified the charge nurse of pt's elevated bg level of 379.
--- NOTE | 2023-06-04 21:35 | PC.NURSE ---
Dee Lopez NP, notified that patient's HS blood sugar was 379. New order received for 8 units of Humalog x1 dose.
[2023-06-04] MEDS: INSULIN HUMAN LISPRO (*BKC) 1,000 UNITS/10 ML VIAL 8 UNITS SUB-Q (21:44)
[2023-06-04 22:48] LABS: Glucose Point of Care > 450 mg/dl (65-105)
--- NOTE | 2023-06-04 22:51 | PC.NURSE ---
Call placed to Dee Lopez NP, regarding patient's blood sugar @ 2250 was >500. Message left.
--- NOTE | 2023-06-04 22:56 | PC.NURSE ---
Bed linens changed after incontinent void.
--- NOTE | 2023-06-04 23:50 | PC.NURSE ---
Dee Lopez NP, returned call and gave new orders for humalog 15 units subq x1 to be given. Recheck blood sugar in one hour.
[2023-06-05] MEDS: INSULIN HUMAN LISPRO (*BKC) 1,000 UNITS/10 ML VIAL 15 UNITS SUB-Q (00:02)
[2023-06-05 01:08] LABS: Glucose Point of Care 421 mg/dl (65-105)
[2023-06-05] MEDS: SODIUM CHLORIDE 0.9% IV 1,000 ML 100 ML IV CONT (04:03)
[2023-06-05] MEDS: methylPREDNISolone SOD SUCC 40 MG VIAL IV PUSH (05:04)
[2023-06-05 05:24] LABS: Basophils Absolute Auto 0.04 K/mm3 (0.00-0.10); Basophils Percent Auto 0.3 % (0.0-1.0); Hematocrit 44.1 % (35.0-49.0); Immature Granulocyte Absolute 0.06 K/mm3 (0.00-0.00); Immature Granulocyte Percent A 0.5 % (0.0-0.0); Lymphocytes Percent Auto 13.5 % (18.0-42.0); Mean Corpuscular HGB Conc 31.7 g/dL (32.0-36.0); Mean Corpuscular Volume 97.8 fL (78.0-102.0); Monocytes Absolute Auto 0.33 K/mm3 (0.10-0.90); Monocytes Percent Auto 2.5 % (2.0-11.0); Neutrophils Absolute Auto 11.1 K/mm3 (1.7-7.2); Neutrophils Percent Auto 83.2 % (50.0-70.0); Platelet Count Result 276 K/mm3 (150-420); Red Blood Count 4.51 M/mm3 (4.20-5.40); Red Cell Distribution Width 13.6 % (11.6-14.4); White Blood Count 13.3 K/mm3 (4.8-10.8)
[2023-06-05] MEDS: LEVOTHYROXINE SODIUM 100 MCG TABLET 200 MCG PO (05:30)
[2023-06-05 05:35] LABS: Anion Gap 10 mmol/L (8-16); Blood Urea Nitrogen 13 mg/dL (7-18); Calcium 7.9 mg/dL (8.5-10.1); Carbon Dioxide 26 mmol/L (21-32); Chloride 104 mmol/L (98-108); Estimated CRCL calculation 82 ml/min; Estimated Glomerular Filt Rate > 60; Glucose 304 mg/dL (70-99); Osmolality Calculated 301 mOsm/kg (285-295); Potassium 4.7 mmol/L (3.5-5.1); Sodium 140 mmol/L (136-145)
[2023-06-05 06:02] LABS: Hemoglobin A1C 13.6 % (<5.7)
[2023-06-05 07:45] VITALS: BP 153/91; PULSE 62; RESP 16; TEMP 36.2; O2SAT 94
[2023-06-05] MEDS: INSULIN HUMAN LISPRO (*BKC) 1,000 UNITS/10 ML VIAL SUB-Q ×3 (08:50→16:59)
[2023-06-05] MEDS: EMPAGLIFLOZIN 25 MG TABLET BY MOUTH (08:51)
[2023-06-05] MEDS: DOCUSATE SODIUM 100 MG CAPSULE PO (08:51)
[2023-06-05] MEDS: allopurinoL 100 MG TABLET BY MOUTH (08:52)
[2023-06-05] MEDS: ATORVASTATIN 10 MG TABLET PO (08:52)
[2023-06-05] MEDS: ESCITALOPRAM OXALATE 10 MG TABLET 20 MG PO (08:52)
[2023-06-05] MEDS: lisinopriL 5 MG TABLET PO (08:52)
[2023-06-05] MEDS: PANTOPRAZOLE 40 MG TABLET PO (08:52)
[2023-06-05] MEDS: metFORMIN HCL 500 MG TABLET PO ×2 (08:52→17:00)
[2023-06-05] MEDS: ASPIRIN 81 MG ENTERIC TABLET PO (08:52)
[2023-06-05] MEDS: TOLNAFTATE 1% POWDER 45 GM BTL 1 APPLIC TOPICAL (08:52)
[2023-06-05] MEDS: GABAPENTIN 300 MG CAPSULE BY MOUTH ×3 (08:52→17:00)
[2023-06-05] MEDS: SALMET XINAFT/FLUTIC PROPIN 250 MCG/50 MCG INH CAP 1 PUFF INHALATION (10:42)
[2023-06-05 11:44] LABS: Glucose Point of Care 334 mg/dl (65-105)
--- NOTE | 2023-06-05 13:37 | PM.IMPN ---
Progress Note: A&P Assessment and Plan (1) Acute exacerbation of chronic obstructive airways disease: Code(s): J44.1 - Chronic obstructive pulmonary disease with (acute) exacerbation Status: Acute (2) Unable to care for self: Code(s): Z78.9 - Other specified health status Status: Acute (3) Type 2 diabetes mellitus: Qualifiers: Diabetes mellitus complication status: with hyperglycemia Diabetes mellitus buttermaker insulin use: with mcc use Qualified Code(s): E11.65 - Type 2 diabetes mellitus with hyperglycemia; Z79.4 - intermediate card tender (current) use of insulin Code(s): E11.9 - Type 2 diabetes mellitus without complications Status: Chronic (4) HTN (hypertension): Code(s): I10 - Essential (primary) hypertension Status: Chronic (5) Abnormal urinalysis: Code(s): R82.90 - Unspecified abnormal findings in urine Status: Acute Plan 1. Acute exacerbation of COPD-patient refused her nebulizer treatments twice yesterday and the 3rd time it was offered patient through the nebulizer mask at the respiratory therapist. Patient had no wheezing and had good air movement at that time so treatments were made p.r.n.. Patient has been placed on Advair 250/50 since she was previously on Symbicort. Patient states that she is supposed her oxygen at 2 L per nasal cannula at home when she feels she needs it. During this hospitalization patient's O2 saturations have been in the upper 90s on room air. Chest x-ray showed no acute cardiopulmonary process.? After speaking with patient's primary care provider patient was to be taking Symbicort, but she was not doing so. Patient will be discharged to snf facility tomorrow with current regimen. Patient was on IV Solu-Medrol which was discontinued this morning since patient had good air movement and no wheezing. Patient also denied any shortness of breath and was not requiring any oxygen. Patient's blood glucose level was over 500 last evening so did want to avoid any further steroids. 2. Inability to care for oneself-per emergency room records patient had feces and dog hair all over her feet.? Patient did tell the emergency room that her electricity had been turned off, but she did not mention her lack of electricity to the provider on the floor.? Will have PT/OT to evaluate and treat and investigate if patient will be able to return to her previous apartment or if she will need placement secondary to needing assistance. 3. Diabetes mellitus-patient's blood glucose level significantly elevated upon admission.? Patient has not been monitoring her blood glucose levels at home.? Patient was on Trulicity and Farxiga at home.? Will resume patient's Farxiga or equivalent of SGLT-2 that is available in the hospital.? At this time Trulicity is not available and patient does not have a home dosing can be brought in.? Did discuss with patient's primary care provider patient's previous regimens for diabetes mellitus. Patient had been on multiple regimens, but had been noncompliance so they were continuously changed. Patient's hemoglobin A1c was 13.6 so patient has been placed on metformin and Farxiga, which were started yesterday and when hemoglobin A1c returned this morning it was decided to place patient on long-acting insulin. 4. Hypertension-patient's blood pressure has been stable on lisinopril. Will continue with current regimen. 5. Abnormal urinalysis-urine culture showed mixed genital maggi isolated in. Noted to be superficial bacteria and no indication of urinary tract infection so no further antibiotic treatment needed. VTE:? Patient will continue on subcutaneous Lovenox daily for from pharmacological VTE prophylaxis Dispo:? Patient will be discharged to a snf facility tomorrow. Code Status:? Full code Subjective Date/time seen: 06/05/23 13:37 Interval history: Patient sitting up on bedside states she is feeling well. Patient
[2023-06-05 16:35] VITALS: BP 136/73; PULSE 62; RESP 16; TEMP 36.2; O2SAT 95
[2023-06-05 17:08] LABS: Glucose Point of Care 229 mg/dl (65-105)
--- NOTE | 2023-06-05 18:40 | PC.NURSE ---
Patients friend Alycia here, states she is here to hop picker patient. Patients plan was to discharge to [facility] tomorrow. This nurse spoke with patient privately, patient states that she does not want to go to senior living anymore and that she can go and live with her friend Alycia. Provider Cassandra notified. Patient aware she will have to sign out AMA. This nurse explained to patient that if she leave AMA she will loose her placement at [facility]. Patient states understanding. AMA paperwork signed. Patient accompanied to front door via wheelchair by Roberto AGUILAR.
--- NOTE | 2023-06-05 19:01 | P.PNCROSS_ITS ---
Event Note Event Note Event Note: Received call from RN that patient requested to leave AMA with a friend. Explai tosin the patient has no medication and if she could wait until the morning so medications could be sent to a pharmacy for patient to slate picker. RN states that patient had been told this about the medication as well as the fact that she will lose placement at the [facility] that accepted her. Patient states she will leave AMA and does not care about what has been done or the placement that will be lost.
--- NOTE | 2023-06-05 20:04 | PC.NURSE ---
1899 Dee Lopez, MOIZ, notified that patient is wanting to go AMA. 1915 Junito Samuel, Nurse Account Resolution Specialist, notified of patient going AMA.
--- OUTSIDE RECORDS SUMMARY | 2023-06-11 10:41 | XMS_ITS | Continuity of Care Document ---
Author Name Unknown Address [address] [place] [address] Phone [facility] Address [address] [place] [address] Phone Support Name Relationship Address Phone MOIZ Badillo Primary Care Provider [address] [place] [id number] Roberts III, DO Sea Brian Emergency Provider [place] [address] MD Cem Bowens Emergency Provider [address] [place] [address] MD Jamari Molina [place] [address] Care Teams Patient Care Team Team Status: Active Member Role Status Kailey Badillo NP Primary Care Provider Active Visit Care Team Team Status: Inactive Member Role Status Kailey Badillo NP Primary Care Provider, Attend ing Provider Active Visit Care Team Team Status: Inactive Member Role Status Kailey Badillo NP Primary Care Provider Active Sea Brian Roberts III, DO Emergency Provider Active Visit Care Team Team Status: Active Member Role Status Kailey Badillo NP Primary Care Provider Active Cem Bowens MD Emergency Provider Active Jamari Molina MD Admit Provider, Attending Provi tj Active Visit Care Team Team Status: Inactive Member Role Status
--- NOTE | 2023-06-11 15:45 | PC.NURSE ---
Unable to contact for discharge call back.
== END 2023-06-05 19:10 | disposition left against medical advice (07) ==
LOC: CHSED 17:11 → CHS2ND 19:03
PROVIDERS: Nurse Practitioner Adult Health; Nurse Practitioner Family; Admitting Provider Internal Medicine; Emergency Provider Emergency Medicine; PCP Nurse Practitioner Family; Visit Provider Internal Medicine
DX: J44.1 Chronic obstructive pulmonary disease with (acute) exacerbation (principal); I10 Essential (primary) hypertension; E11.51 Type 2 diabetes mellitus with diabetic peripheral angiopathy without gangrene; E78.5 Hyperlipidemia, unspecified; E03.9 Hypothyroidism, unspecified; M54.50 Low back pain, unspecified; G80.9 Cerebral palsy, unspecified; F17.210 Nicotine dependence, cigarettes, uncomplicated; F32.A Depression, unspecified; Z79.82 Long term (current) use of aspirin; Z79.85 Long-term (current) use of injectable non-insulin antidiabetic drugs; Z91.148 Patient's other noncompliance with medication regimen for other reason; Z78.9 Other specified health status
CPT/HCPCS: 36415; 36600; 71045; 73502; 80048; 80053; 81001; 82805; 82948; 83036; 83735; 83880; 84443; 85025; 85610; 85730; 86140; 87086; 87088; 94640; 96361; 96365; 96366; 96367; 96375; 96376; 97110; 97161; 99285; A9270; G0378; J0696; J1815; J2920; J3475; J7030